=== PATIENT | male | born 1945 | race Caucasian/White ===

== ENCOUNTER 2017-09-27 11:12 | Inpatient (IN) | payer OTHER ==
[~2017-09-27] VITALS: Ht 167.6 cm; Wt 88.7 kg
[~2017-09-27 11:12] MED LIST: ACET-1138 PO; AMLO-114 PO; ASPEC81 PO; ATOR-24 PO; CLB200 PO; HYDR25TA4 PO; LISI-725 PO; OXYSR10 PO; PRLSR20 PO; RXC5 PO
[2017-09-27] MEDS ORDERED: SODIUM CHLORIDE 0.9% 1000ML 1,000 ML IV STA (11:37)
--- NOTE | 2017-09-27 12:08 | DIAGNOSTIC IMAGING REPORT ---
CHEST ONE VIEW PORTABLE HISTORY: 72 years-old Male EVALUATE ALTERED MENTAL STATUS/WEAKNESS acute altered mental status COMPARISON: None available TECHNIQUE: Portable AP view of the chest FINDINGS: Cardiac silhouette is mildly enlarged. Atherosclerosis of the aorta. Mild pulmonary vascular congestion without overt pulmonary edema. No pneumothorax or pleural effusion. There is mild right hemidiaphragmatic elevation. Ill-defined opacity is noted within the lateral right midlung within the region of the anterior right third rib. Bones of the chest appear grossly intact. IMPRESSION: 1. Cardiomegaly with mild pulmonary vascular congestion. 2. Subtle ill-defined opacity of the lateral right midlung may be secondary to composite density from overlapping ribs, however underlying airspace disease is also considered. The above report was generated using voice recognition software. It may contain grammatical, syntax or spelling errors. Electronically signed by: Gui Reyes M.D. 09/27/2017 12:07 PM Dictated Date/Time: 09/27/2017 12:05 PM
[2017-09-27 12:11] LABS: BASO % 0.4 %; BASO ABS # 0.04 K/uL (0-0.2); EOS % 2.4 %; EOS ABS # 0.25 K/uL (0-0.5); HEMATOCRIT 41.5 % (42-52); HEMOGLOBIN 14.5 g/dL (14.0-18.0); IG# 0.03 K/uL (0.00-0.02); LYMPH % 16.7 %; LYMPH ABS # 1.75 K/uL (1.2-3.4); MEAN CORPUSCULAR HEMOGLOBIN 32.5 pg (25-34); MEAN CORPUSCULAR HGB CONC 34.9 g/dl (32-36); MEAN PLATELET VOLUME 10.6 fL (7.4-10.4); MONO % 10.7 %; MONO ABS # 1.12 K/uL (0.11-0.59); NEUT % 69.5 %; NEUT ABS # 7.32 K/uL (1.4-6.5); PLATELET COUNT 187 K/uL (130-400); RED CELL DISTRIBUTION WIDTH CV 13.6 % (11.5-14.5); RED CELL DISTRIBUTION WIDTH SD 46.5 fL (36.4-46.3); WHITE BLOOD COUNT 10.51 K/uL (4.8-10.8)
[2017-09-27 12:21] LABS: INR 1.4 (0.9-1.1)
--- NOTE | 2017-09-27 12:35 | DIAGNOSTIC IMAGING REPORT ---
ABD/PELVIS NO IV OR ORAL CONT CLINICAL HISTORY: 72 years-old Male presenting with ABD PAIN, POSS ,MASS, NO CONTRAST, high calcium level, concern for mass. TECHNIQUE: Multidetector CT of the abdomen and pelvis was performed without the use of intravenous contrast. IV contrast: None. A dose lowering technique was used consistent with the principles of ALARA (as low as reasonably achievable). COMPARISON: None. CT DOSE (mGy.cm): The estimated cumulative dose is 979.90 mGycm. 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 Lung bases: Peripheral reticular opacities affecting both dependent and nondependent portions of the lung bases noted. Solid 6 mm nodule in the lingula (series 3 image 18). Solid 5 mm nodule in the right middle lobe (series 3 image 20) disease. Subtle bronchiectasis noted. Calcified granuloma in the right lower lobe. Multichamber enlargement of the heart. Coronary artery calcification. No pericardial or pleural effusion. Liver: Normal morphology. Multiple low-density lesions are ill-defined and noted throughout the right hepatic lobe. Biliary: Intrahepatic biliary ductal dilatation throughout the left hepatic lobe. Gallbladder contains gallstones. Pancreas: Normal noncontrast appearance. Spleen: Enlarged. Adrenal glands: Normal noncontrast appearance. Kidneys and ureters: Hypodensity at the upper pole the left kidney, indeterminate but likely cysts. Punctate nonobstructing calculus at the lower pole of the right kidney. No hydronephrosis. Normal ureters. Bladder: Under distended though likely circumferentially thick-walled. Pelvic organs: Prostate enlargement likely secondary to benign prostatic hyperplasia. Bowel: Limited diverticulosis in the descending and proximal sigmoid colon. Few diverticula noted at the hepatic flexure. The appendix is normal. No bowel obstruction. Peritoneal cavity: Trace free fluid in the pelvis. Lymph nodes: Multiple prominent paraesophageal lymph nodes. Pathologically enlarged lymph nodes in the celiac axis, portacaval, and jacklyn hepatis regions. The largest node measures 15 mm in the short axis (series 3 image 134). Vasculature: Atherosclerosis of the normal caliber abdominal aorta. Abdominal wall: Normal. Musculoskeletal: Degenerative changes of the spine. IMPRESSION: 1. Intrahepatic biliary ductal dilatation limited to the left hepatic lobe raises concern for an obstructing mass at the level of the left aspect of the liver hilum. Given the presence of multiple suspicious lesions throughout the right hepatic lobe, which are concerning for metastases, the primary differential consideration is cholangiocarcinoma with hepatic spread. Differential considerations include an extrahepatic primary with diffuse liver metastases and secondary obstruction of the left hepatic ducts due to metastatic lesions. However, no extrahepatic malignancy is evident on this noncontrast CT. Ultrasound of the liver is recommended for potential fine-needle biopsy for tissue sampling. 2. Upper abdominal lymphadenopathy. 3. Extensive reticular opacities at the lung bases with subtle bronchiectasis could suggest underlying fibrotic lung disease such as nonspecific interstitial pneumonitis, chronic aspiration, or smoking related lung injury. The report will be called/faxed according to standard departmental protocol. Electronically signed by: Kieran Buenrostro M.D. 09/27/2017 12:34 PM Dictated Date/Time: 09/27/2017 12:21 PM
[2017-09-27 12:38] LABS: ALBUMIN 2.9 gm/dl (3.4-5.0); ALT/SGPT 49 U/L (12-78); AST/SGOT 74 U/L (15-37); BLOOD UREA NITROGEN 19 mg/dl (7-18); CARBON DIOXIDE 28 mmol/L (21-32); CREATININE 1.59 mg/dl (0.60-1.40); GLUCOSE 90 mg/dl (70-99); POTASSIUM 3.6 mmol/L (3.5-5.1); SODIUM 136 mmol/L (136-145)
[2017-09-27 12:45] LABS: ALKALINE PHOSPHATASE 241 U/L (45-117); TOTAL PROTEIN 8.1 gm/dl (6.4-8.2)
[2017-09-27] MEDS ORDERED: CHOL1000 PO (13:29)
[2017-09-27] MEDS ORDERED: AMLO-114 PO (13:29)
[2017-09-27] MEDS ORDERED: MILK1CAP9 PO (13:29)
[2017-09-27] MEDS ORDERED: OMEG10007 PO (13:29)
[2017-09-27] MEDS ORDERED: PRLSR20 PO (13:29)
[2017-09-27] MEDS ORDERED: CYAN10005 PO (13:29)
[2017-09-27] MEDS ORDERED: MULT-506 PO (13:29)
[2017-09-27] MEDS ORDERED: ASCO100061 PO (13:29)
[2017-09-27] MEDS ORDERED: POLYETHYLENE (MIRALAX) 17 GM PACK PO PRN (13:45)
--- NOTE | 2017-09-27 13:54 | History and Physical ---
History & Physical Date & Time of Service: Sep 27, 2017 at 13:54 Chief Complaint: Weak,Not Appetite,Abnormal Blood Results Primary Care Physician: Nain Hoff D.OLawrence History of Present Illness Source: patient, clinic records, hospital records This is a 72yo M with a PMH of HTN, HLD who presents with generalized malaise and unintentional weight loss x 2 months. Patient reports that he has been "feeling poorly" since the beginning of July, with initial reports of low grade fever and intermittent abdominal pain thought to be due to hiatal hernia. Then started to experience increased fatigue, decreased appetite, increased urination and constipation. Endorses a 20 pound weight loss over the past few months. Was in [place] over the winter and went to an urgent care for evaluation of these symptoms and it was thought that symptoms were a side effect of crestor, which he was instructed to discontinue. Followed up with PCP at [facility] earlier this week, where he had lab work performed that revealed hypercalcemia of 15. Was told to go to ED for further evaluation. Currently endorses fatigue, decreased appetite and back pain (chronic). Denies fever, chills, confusion, lightheadedness, headache, visual changes, CP, SOB, nausea, vomiting or LE swelling. 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/15, Status: Resolved Family History Unknown family history Social History Smoking Status: Former Smoker Alcohol Use: occasionally Marital Status: Housing status: lives with significant other Occupational Status: retired Allergies Coded Allergies: Fish (Unverified Allergy, Unknown, SCALLOPS-G I UPSET, 09/27/17) NO KNOWN DRUG ALLERGIES (Unverified Allergy, Unknown, NONE, 09/27/17) Uncoded Allergies: HAZELNUTS (Allergy, Unknown, red, puffy eyes, 10/15/15) Home Medications Scheduled Amlodipine (Norvasc), 10 MG PO DAILY Ascorbic Acid (Vitamin C), 1 TAB PO DAILY Cholecalciferol (Vitamin D3), 3 TAB PO DAILY Cyanocobalamin (Vitamin B-12), 1,000 MCG PO DAILY Fish Oil (Gaffney-3), 1 CAP PO DAILY Milk Thistle (Silybum Marianum (Milk Thistle), 1 CAP PO DAILY Multivitamin (Multivitamin), 1 TAB PO DAILY Triamcinolone Acet (Aristocort 0.1%), 1 APPLN TOP DAILY Scheduled PRN Omeprazole (Prilosec), 20 MG PO DAILY PRN for Dyspepsia Review of Systems Constitutional: + weight loss, + fatigue, No fever, No chills, No sweats, No weakness Eyes: No worsening of vision, No eye pain ENT: No hearing loss, No nasal symptoms, No sore throat Respiratory: No cough, No sputum, No wheezing, No shortness of breath, No dyspnea on exertion, No dyspnea at rest Cardiovascular: No chest pain, No orthopnea, No PND, No edema Abdomen: + constipation, No pain, No nausea, No vomiting, No diarrhea Musculoskeletal: + joint pain, + muscle pain Genitourinary - Male: No hematuria, No dysuria, No urinary urgency Neurologic: No memory loss, No paralysis, No weakness, No numbness/tingling Endocrine: + fatigue, + excessive urination, No excessive thirst Integumentary: No rash, No itch, No new/changing skin lesions Physical Exam Vital Signs Date Time Temp Pulse Resp B/P (MAP) Pulse Ox O2 Delivery O2 Flow Rate FiO2 09/27/17 11:32 63 09/27/17 11:17 36.4 54 18 122/75 95 Room Air General Appearance: WD/WN, no apparent distress Head: normocephalic, atraumatic Eyes: normal inspection, PERRL, sclerae normal ENT: normal ENT inspection, hearing grossly normal, pharynx normal Neck: supple, thyroid normal, no JVD, trachea midline Respiratory/Chest: chest non-tender, lungs clear, normal breath sounds, no respiratory distress, + crackles (faint bibasilar crackles ) Cardiovascular: regular rate, rhythm, no murmur, normal peripheral pulses Abdomen/GI: normal bowel sounds, non tender, soft, + hepatomegaly Back: normal inspection, no muscle spasm Extremities/Musculoskelatal: normal inspection, no calf tenderness, no pedal edema Neurologic/Psych: no motor/sensory deficits, alert, normal mood/affect, oriented x 3 Skin: normal color, warm/dry, no rash Diagnostics Laboratory Results Results Past 24 Hours Test 09/27/17 11:51 09/27/17 12:50 Range/Units White Blood Count 10.51 4.8-10.8 K/uL Red Blood Count 4.46 4.7-6.1 M/uL Hemoglobin 14.5 14.0-18.0 g/dL Hematocrit 41.5 42-52 % Mean Corpuscular Volume 93.0 80-100 fL Mean Corpuscular Hemoglobin 32.5 25-34 pg Mean Corpuscular Hemoglobin Concent 34.9 32-36 g/dl Platelet Count 187 130-400 K/uL Mean Platelet Volume 10.6 7.4-10.4 fL Neutrophils (%) (Auto) 69.5 % Lymphocytes (%) (Auto) 16.7 % Monocytes (%) (Auto) 10.7 % Eosinophils (%) (Auto) 2.4 % Basophils (%) (Auto) 0.4 % Neutrophils # (Auto) 7.32 1.4-6.5 K/uL Lymphocytes # (Auto) 1.75 1.2-3.4 K/uL Monocytes # (Auto) 1.12 0.11-0.59 K/uL Eosinophils # (Auto) 0.25 0-0.5 K/uL Basophils # (Auto) 0.04 0-0.2 K/uL RDW Standard Deviation 46.5 36.4-46.3 fL RDW Coefficient of Variation 13.6 11.5-14.5 % Immature Granulocyte % (Auto) 0.3 % Immature Granulocyte # (Auto) 0.03 0.00-0.02 K/uL Prothrombin Time 14.1 9.0-12.0 SECONDS Prothromb Time International Ratio 1.4 0.9-1.1 Activated Partial Thromboplast Time 28.0 21.0-31.0 SECONDS Partial Thromboplastin Ratio 1.1 Sodium Level 136 136-145 mmol/L Potassium Level 3.6 3.5-5.1 mmol/L Chloride Level 101 98-107 mmol/L Carbon Dioxide Level 28 21-32 mmol/L Anion Gap 7.0 3-11 mmol/L Blood Urea Nitrogen 19 7-18 mg/dl Creatinine 1.59 0.60-1.40 mg/dl Est Creatinine Clear Calc Drug Dose 43.4 ml/min Estimated GFR () 49.5 Estimated GFR (Non- 42.7 BUN/Creatinine Ratio 11.9 10-20 Random Glucose 90 70-99 mg/dl Calcium Level 15.0 8.5-10.1 mg/dl Magnesium Level 1.7 1.8-2.4 mg/dl Total Bilirubin 1.2 0.2-1 mg/dl Aspartate Amino Transf (AST/SGOT) 74 15-37 U/L Alanine Aminotransferase (ALT/SGPT) 49 12-78 U/L Alkaline Phosphatase 241 45-117 U/L Total Creatine Kinase 114 39-308 U/L Troponin I < 0.015 0-0.045 ng/ml Total Protein 8.1 6.4-8.2 gm/dl Albumin 2.9 3.4-5.0 gm/dl Globulin 5.2 2.5-4.0 gm/dl Albumin/Globulin Ratio 0.6 0.9-2 Thyroid Stimulating Hormone (TSH) 3.310 0.300-4.500 uIu/ml Free Thyroxine 1.20 0.80-1.60 ng/dl Urine Color DK YELLOW Urine Appearance CLEAR CLEAR Urine pH 5.5 4.5-7.5 Urine Specific Alkol 1.013 1.000-1.030 Urine Protein NEG NEG Urine Glucose (UA) NEG NEG Urine Ketones NEG NEG Urine Occult Blood NEG NEG Urine Nitrite NEG NEG Urine Bilirubin NEG NEG Urine Urobilinogen NEG NEG Urine Leukocyte Esterase TRACE NEG Urine WBC (Auto) 5-10 0-5 /hpf Urine RBC (Auto) 5-10 0-4 /hpf Urine Hyaline Casts (Auto) 5-10 0-5 /lpf Urine Epithelial Cells (Auto) >30 0-5 /lpf Urine Bacteria (Auto) NEG NEG Diagnostic Radiology CXR: IMPRESSION: 1. Cardiomegaly with mild pulmonary vascular congestion. 2. Subtle ill-defined opacity of the lateral right midlung may be secondary to composite density from overlapping ribs, however underlying airspace disease is also considered. Abd/pelvis CT: IMPRESSION: 1. Intrahepatic biliary ductal dilatation limited to the left hepatic lobe raises concern for an obstructing mass at the level of the left aspect of the liver hilum. Given the presence of multiple suspicious lesions throughout the right hepatic lobe, which are concerning for metastases, the primary differential consideration is cholangiocarcinoma with hepatic spread. Differential considerations include an extrahepatic primary with diffuse liver metastases and secondary obstruction of the left hepatic ducts due to metastatic lesions. However, no extrahepatic malignancy is evident on this noncontrast CT. Ultrasound of the liver is recommended for potential fine-needle biopsy for tissue sampling. 2. Upper abdominal lymphadenopathy. 3. Extensive reticular opacities at the lung bases with subtle bronchiectasis could suggest underlying fibrotic lung disease such as nonspecific interstitial pneumonitis, chronic aspiration, or smoking related lung injury. EKG Atrial flutter Voltage criteria for left ventricular hypertrophy Impression Assessment and Plan This is a 72yo M with a PMH of HTN, HLD who presents with generalized malaise and unintentional weight loss x 2 months found to be hypercalcemic at 15 with liver abnormalities on abd/pelvis CT concerning for malignancy. Hypercalcemia: -Calcium of 15 -Aggressive IVF resuscitation -Concern for malignancy of liver, cholangiocarcinoma with hepatic spread -Heme onc consulted -Concern for mets to bone due to calcium of 15 -Recommended bone scan -AFP, CEA, Ca 19-9 Intrahepatic ductal dilatation, liver lesions -Abd pelvis CT with intrahepatic ductal dilatation, raises concern for an obstructing mass at the level of the left aspect of the liver hilum. Given the presence of multiple suspicious lesions throughout the right hepatic lobe, which are concerning for metastases, the primary differential consideration is cholangiocarcinoma with hepatic spread. -Ultrasound of the liver is recommended for potential fine-needle biopsy for tissue sampling -Abnormal liver lab work: Alk phos 241, AST of 74, T bili of 1.2 -GI consulted -Will evaluate for EUS HTN: -Recently discontinued lisinopril, hctz due to hypotension -Normotensive -Cont amlodipine Reticular opacities of lung bases: -On CXR -May suggest subtle bronchiectasis vs underlying fibrotic lung disease such as nonspecific interstitial pneumonitis, chronic aspiration, or smoking related lung injury -Remote h/o smoking -No SOB, adequate O2 saturation on room air DVT Ppx: SCDs for now. SQ heparin after EUS is obtained by GI Code status: FULL PCP: Jayden Hoff Dispo: Admitted to telemetry. Plan to return home once medically stable. Patient seen in collaboration with Dr. oHrn. Please see addendum. Resuscitation Status FULL VTE Prophylaxis Will order VTE Prophylaxis: Yes (SCDs for now, SQ heparin to be ordered after procedure ) Note ATTENDING ADDENDUM Record reviewed. Patient interviewed and examined. Care coordinated with Marylou Escalante PA-C. Please refer to her documentation for patient's history. Briefly, 72-year-old male with recent onset of anorexia, weight loss, fatigue. Seen in clinic and found to have serum calcium of 15. Refer to ED for further evaluation and management. EXAM: General- no acute distress ENT-anicteric Lungs- clear to auscultation; no respiratory distress Cardiovascular- RRR; I/ systolic murmur at base; no gallop; no JVD; no pretibial edema Abdomen- + bowel sounds, soft, nontender; no palpable masses or hepatosplenomegaly Extremities- no cyanosis; no calf tenderness Neuro- alert, oriented Skin- warm & dry DATA: INR 1.4. Total bilirubin 1.2, AST 74, ALT 49, alkaline phosphatase 241. Other lab studies as noted. Chest x-ray demonstrated cardiomegaly, mild pulmonary vascular congestion, ill- defined opacity right lateral midlung possibly secondary to overlapping ribs. CT of abdomen and pelvis demonstrated multiple hepatic lesions in the right lobe , intrahepatic biliary ductal dilatation of the left lobe raising concern for an obstructing mass. Cholangiocarcinoma with liver metastases considered in the radiographic differential diagnosis. Upper abdominal lymphadenopathy was noted. Bibasilar pulmonary reticular opacities with subtle bronchiectasis suggested. EKG performed at 1146 demonstrated a regular rhythm at 60/minute. Underlying rhythm interpreted as atrial flutter, but may have sinus rhythm with some baseline artifact. ASSESSMENT AND PLAN: Hypercalcemia with radiographic findings as noted above worrisome for malignancy , possibly cholangiocarcinoma with hepatic metastases. Findings and differential diagnosis discussed with patient and his . Initial management for hypercalcemia with intravenous fluids; may need other treatment such as bisphosphonates. Will need further evaluation of hepatic lesions. Consult Gastroenterology and Hematology/Oncology. EKG interpreted as atrial flutter with controlled rate. May have sinus rhythm with some baseline artifact. Monitor on telemetry. Check repeat 12-lead EKG in the morning. Review with Cardiology. Initial DVT prophylaxis with SCDs, anticipating invasive diagnostic procedures. Transition to prophylactic anticoagulants once invasive procedures are completed. Please refer to CHANI Escalante's documentation for discussion of other issues. Quintin Horn MD .
[2017-09-27] MEDS ORDERED: ASCO100T4 PO (14:08)
[2017-09-27] MEDS ORDERED: TRMCR130WC TOP (14:08)
[2017-09-27 14:30] VITALS: O2SAT 93; BMI 31.0
[2017-09-27] MEDS ORDERED: SODIUM CHLORIDE 0.9% 1000ML 1,000 ML IV SCH (16:00)
--- NOTE | 2017-09-27 17:16 | EMERGENCY ROOM VISIT NOTE ---
History Report prepared by Kristel: Augie Whitfield Under the Supervision of: Dr. Jose De Jesus Julio M.D. First contact with patient: 11:31 Chief Complaint: ABNORMAL LABS Stated Complaint: WEAK,NOT APPETITE,ABNORMAL BLOOD RESULTS History of Present Illness The patient is a 72 year old male who presents to the Emergency Room with complaints of constant hypercalcemia. He was seen at his primary care office yesterday, and had blood work drawn. He was called today with his results and was told he had a calcium of 15. The patient states that he has felt "poorly" for the past two months. He reports an approximately 20 pound weight loss in this time. He also complains of constipation, cough, increased urinary frequency , and fatigue. He denies diarrhea, abdominal pain, back pain, LOC, abdominal bloating, or headache. The patient states that he had fevers initially about two months ago, but not recently. He feels that he may be dehydrated. Source of History: patient Onset: Yesterday Position: other (global) Symptom Intensity: Calcium of 15 Quality: other (hypercalcemia) Timing: constant Associated Symptoms: + fevers (two months ago), + cough, + urinary symptoms (increased frequency), + fatigue, No LOC, No headache, No abdominal pain, No back pain, No diarrhea Note: The patient denies abdominal bloating. He also complains of constipation. Review of Systems See HPI for pertinent positives & negatives. A total of 10 systems reviewed and were otherwise negative. Past Medical & Surgical Medical Problems: (1) Arthritis of right knee (2) Bronchitis (3) Hiatal hernia (4) HLD (hyperlipidemia) (5) HTN (hypertension) (6) Spindle cell carcinoma Family History No pertinent family history stated. Social History Smoking Status: Former Smoker Marital Status: Current/Historical Medications Scheduled Amlodipine (Norvasc), 10 MG PO DAILY Ascorbic Acid (Vitamin C), 1 TAB PO DAILY Cholecalciferol (Vitamin D3), 3 TAB PO DAILY Cyanocobalamin (Vitamin B-12), 1,000 MCG PO DAILY Fish Oil ([place]-3), 1 CAP PO DAILY Milk Thistle (Silybum [place] (Milk Thistle), 1 CAP PO DAILY Multivitamin (Multivitamin), 1 TAB PO DAILY Triamcinolone Acet (Aristocort 0.1%), 1 APPLN TOP DAILY Scheduled PRN Omeprazole (Prilosec), 20 MG PO DAILY PRN for Dyspepsia Allergies Coded Allergies: Fish (Unverified Allergy, Unknown, SCALLOPS-G I UPSET, 09/27/17) NO KNOWN DRUG ALLERGIES (Unverified Allergy, Unknown, NONE, 09/27/17) Uncoded Allergies: HAZELNUTS (Allergy, Unknown, red, puffy eyes, 10/15/15) Physical Exam Vital Signs Date Time Temp Pulse Resp B/P (MAP) Pulse Ox O2 Delivery O2 Flow Rate FiO2 09/27/17 11:32 63 09/27/17 11:17 36.4 54 18 122/75 95 Room Air Physical Exam GENERAL: Patient is in no acute distress. HEENT: No acute trauma, normocephalic atraumatic, mucous membranes dry, no nasal congestion, no scleral icterus. NECK: No stridor, no adenopathy, no meningismus, trachea is midline. LUNGS: Clear to auscultation bilaterally, no wheeze, no rhonchi, breath sounds equal. HEART: Without murmurs gallops or rubs, regular rate and rhythm. ABDOMEN: Soft, nontender, bowel sounds positive, no hernias, no peritonitis. EXTREMITIES: No cyanosis or edema, full range of motion of all the joints without pain or difficulty, no signs for acute trauma. NEUROLOGIC: Oriented x 3, no acute motor or sensory deficits, no focal weakness. SKIN: No rash, no jaundice, no diaphoresis. Medical Decision & Procedures ER Provider Diagnostic Interpretation: Radiology results as stated below per my review and radiologist interpretation: CHEST ONE VIEW PORTABLE FINDINGS: Cardiac silhouette is mildly enlarged. Atherosclerosis of the aorta. Mild pulmonary vascular congestion without overt pulmonary edema. No pneumothorax or pleural effusion. There is mild right hemidiaphragmatic elevation. Ill-defined opacity is noted within the lateral right midlung within the region of the anterior right third rib. Bones of the chest appear grossly intact. IMPRESSION: 1. Cardiomegaly with mild pulmonary vascular congestion. 2. Subtle ill-defined opacity of the lateral right midlung may be secondary to composite density from overlapping ribs, however underlying airspace disease is also considered. The above report was generated using voice recognition software. It may contain grammatical, syntax or spelling errors. Electronically signed by: Gui Reyes M.D. 09/27/2017 12:07 PM ABD/PELVIS NO IV OR ORAL CONT FINDINGS: Automation Tender topogram: Unremarkable. Lung bases: Peripheral reticular opacities affecting both dependent and nondependent portions of the lung bases noted. Solid 6 mm nodule in the lingula (series 3 image 18). Solid 5 mm nodule in the right middle lobe (series 3 image 20) disease. Subtle bronchiectasis noted. Calcified granuloma in the right lower lobe. Multichamber enlargement of the heart. Coronary artery calcification. No pericardial or pleural effusion. Liver: Normal morphology. Multiple low-density lesions are ill-defined and noted throughout the right hepatic lobe. Biliary: Intrahepatic biliary ductal dilatation throughout the left hepatic lobe. Gallbladder contains gallstones. Pancreas: Normal noncontrast appearance. Spleen: Enlarged. Adrenal glands: Normal noncontrast appearance. Kidneys and ureters: Hypodensity at the upper pole the left kidney, indeterminate but likely cysts. Punctate nonobstructing calculus at the lower pole of the right kidney. No hydronephrosis. Normal ureters. Bladder: Under distended though likely circumferentially thick-walled. Pelvic organs: Prostate enlargement likely secondary to benign prostatic hyperplasia. Bowel: Limited diverticulosis in the descending and proximal sigmoid colon. Few diverticula noted at the hepatic flexure. The appendix is normal. No bowel obstruction. Peritoneal cavity: Trace free fluid in the pelvis. Lymph nodes: Multiple prominent paraesophageal lymph nodes. Pathologically enlarged lymph nodes in the celiac axis, portacaval, and jacklyn hepatis regions. The largest node measures 15 mm in the short axis (series 3 image 134). Vasculature: Atherosclerosis of the normal caliber abdominal aorta. Abdominal wall: Normal. Musculoskeletal: Degenerative changes of the spine. IMPRESSION: 1. Intrahepatic biliary ductal dilatation limited to the left hepatic lobe raises concern for an obstructing mass at the level of the left aspect of the liver hilum. Given the presence of multiple suspicious lesions throughout the right hepatic lobe, which are concerning for metastases, the primary differential consideration is cholangiocarcinoma with hepatic spread. Differential considerations include an extrahepatic primary with diffuse liver metastases and secondary obstruction of the left hepatic ducts due to metastatic lesions. However, no extrahepatic malignancy is evident on this noncontrast CT. Ultrasound of the liver is recommended for potential fine-needle biopsy for tissue sampling. 2. Upper abdominal lymphadenopathy. 3. Extensive reticular opacities at the lung bases with subtle bronchiectasis could suggest underlying fibrotic lung disease such as nonspecific interstitial pneumonitis, chronic aspiration, or smoking related lung injury. The report will be called/faxed according to standard departmental protocol. Electronically signed by: Kieran Buenrostro M.D. 09/27/2017 12:34 PM Laboratory Results 09/27/17 11:51 Red Blood Count 4.46, Mean Corpuscular Volume 93.0, Mean Corpuscular Hemoglobin 32.5, Mean Corpuscular Hemoglobin Concent 34.9, Mean Platelet Volume 10.6, Neutrophils (%) (Auto) 69.5, Lymphocytes (%) (Auto) 16.7, Monocytes (%) (Auto) 10.7, Eosinophils (%) (Auto) 2.4, Basophils (%) (Auto) 0.4, Neutrophils # (Auto ) 7.32, Lymphocytes # (Auto) 1.75, Monocytes # (Auto) 1.12, Eosinophils # (Auto ) 0.25, Basophils # (Auto) 0.04 09/27/17 11:51 Test 09/27/17 11:51 09/27/17 12:50 White Blood Count 10.51 K/uL (4.8-10.8) Red Blood Count 4.46 M/uL (4.7-6.1) Hemoglobin 14.5 g/dL (14.0-18.0) Hematocrit 41.5 % (42-52) Mean Corpuscular Volume 93.0 fL (80-100) Mean Corpuscular Hemoglobin 32.5 pg (25-34) Mean Corpuscular Hemoglobin Concent 34.9 g/dl (32-36) Platelet Count 187 K/uL (130-400) Mean Platelet Volume 10.6 fL (7.4-10.4) Neutrophils (%) (Auto) 69.5 % Lymphocytes (%) (Auto) 16.7 % Monocytes (%) (Auto) 10.7 % Eosinophils (%) (Auto) 2.4 % Basophils (%) (Auto) 0.4 % Neutrophils # (Auto) 7.32 K/uL (1.4-6.5) Lymphocytes # (Auto) 1.75 K/uL (1.2-3.4) Monocytes # (Auto) 1.12 K/uL (0.11-0.59) Eosinophils # (Auto) 0.25 K/uL (0-0.5) Basophils # (Auto) 0.04 K/uL (0-0.2) RDW Standard Deviation 46.5 fL (36.4-46.3) RDW Coefficient of Variation 13.6 % (11.5-14.5) Immature Granulocyte % (Auto) 0.3 % Immature Granulocyte # (Auto) 0.03 K/uL (0.00-0.02) Prothrombin Time 14.1 SECONDS (9.0-12.0) Prothromb Time International Ratio 1.4 (0.9-1.1) Activated Partial Thromboplast Time 28.0 SECONDS (21.0-31.0) Partial Thromboplastin Ratio 1.1 Anion Gap 7.0 mmol/L (3-11) Est Creatinine Clear Calc Drug Dose 43.4 ml/min Estimated GFR () 49.5 Estimated GFR (Non- 42.7 BUN/Creatinine Ratio 11.9 (10-20) Calcium Level 15.0 mg/dl (8.5-10.1) Magnesium Level 1.7 mg/dl (1.8-2.4) Total Bilirubin 1.2 mg/dl (0.2-1) Aspartate Amino Transf (AST/SGOT) 74 U/L (15-37) Alanine Aminotransferase (ALT/SGPT) 49 U/L (12-78) Alkaline Phosphatase 241 U/L (45-117) Total Creatine Kinase 114 U/L (39-308) Troponin I < 0.015 ng/ml (0-0.045) Total Protein 8.1 gm/dl (6.4-8.2) Albumin 2.9 gm/dl (3.4-5.0) Globulin 5.2 gm/dl (2.5-4.0) Albumin/Globulin Ratio 0.6 (0.9-2) Carcinoembryonic Antigen 3.5 ng/ml (0-2.5) Thyroid Stimulating Hormone (TSH) 3.310 uIu/ml (0.300-4.500) Free Thyroxine 1.20 ng/dl (0.80-1.60) Urine Color DK YELLOW Urine Appearance CLEAR (CLEAR) Urine pH 5.5 (4.5-7.5) Urine Specific [place] 1.013 (1.000-1.030) Urine Protein NEG (NEG) Urine Glucose (UA) NEG (NEG) Urine Ketones NEG (NEG) Urine Occult Blood NEG (NEG) Urine Nitrite NEG (NEG) Urine Bilirubin NEG (NEG) Urine Urobilinogen NEG (NEG) Urine Leukocyte Esterase TRACE (NEG) Urine WBC (Auto) 5-10 /hpf (0-5) Urine RBC (Auto) 5-10 /hpf (0-4) Urine Hyaline Casts (Auto) 5-10 /lpf (0-5) Urine Epithelial Cells (Auto) >30 /lpf (0-5) Urine Bacteria (Auto) NEG (NEG) Laboratory results reviewed by me. Medications Administered Medications (Trade) Dose Ordered Sig/Van Route Start Time Stop Time Status Last Admin Dose Admin Sodium Chloride 1,000 ml @ 999 mls/hr Q1H1M STAT IV 09/27/17 11:37 09/27/17 12:37 DC 09/27/17 12:01 999 MLS/HR ECG Per My Interpretation Indication: other (fatigue) Rate (beats per minute): 58 Rhythm: sinus bradycardia Findings: no ectopy, other (LVH. No ST elevation. ) ED Course 1133: The patient was evaluated in room C4. A complete history and physical exam was performed. 1137: Ordered Sodium Chloride 1000 ml @ 999 mls/hr IV. 1250: Upon reexamination the patient is resting comfortably. I discussed results and treatment plan with the patient. He verbalizes agreement and understanding. I spoke with Marylou Escalante PA-C of the [facility]. We discussed the patient's results and findings. The patient will be evaluated by [facility] for further management. Medical Decision The patient is a 72 year old male who presents to the ED with complaints of hypercalcemia. Differential diagnoses considered include electrolyte imbalance , dehydration, anemia, malignancy, thyroid/parathyroid abnormality, UTI, bowel obstruction, and dysrhythmia. There is no leukocytosis or concerning anemia. Renal panel testing shows some mild renal insufficiency/dehydration. Calcium was elevated at 15. There were some liver enzyme elevations concerning for hepatitis. No pancreatitis. INR slightly high at 1.4. Chest film does not show pneumonia, free air or mass. EKG shows a sinus rhythm, no acute ischemia. Cardiac enzyme testing times one is not consistent with acute cardiac injury. Abdominal and pelvis CT shows a potential liver mass with biliary obstruction. The patient presents with abnormal laboratory values as an outpatient. He is hypercalcemic. He did receive IV saline. He has findings of potential malignancy with involvement of the biliary tree. A hospital stay is required for further workup. I did discuss the findings with the patient, the on-call hospitalist was consulted. Case management has been involved. Medication Reconcilliation Current Medication List: was personally reviewed by me Blood Pressure Screening Patient's blood pressure: Normal blood pressure Blood pressure disposition: Did not require urgent referral Consults Time Called: 1248 Consulting Physician: Marylou Duenas Hospitalist Returned Call: [phone] Discussed the patient's case. The patient will be evaluated for further management. Impression Primary Impression: Hypercalcemia Additional Impressions: Liver mass Dilated bile duct Scribe Attestation The scribe's documentation has been prepared under my direction and personally reviewed by me in its entirety. I confirm that the note above accurately reflects all work, treatment, procedures, and medical decision making performed by me. Departure Information Dispostion Being Evaluated By Hospitalist Referrals Nain Hoff DLawrenceO. (PCP) Patient Instructions My [facility] Problem Qualifiers
--- NOTE | 2017-09-27 18:55 | Medical Consult ---
Consultation Date of Consultation: Sep 27, 2017. Attending Physician: Kaiden Moreau MD History of Present Illness Hematology/Oncology consult: Evaluation management of hypercalcemia, suspected cancer involving the liver. Date of consultation: 09/27/2017 HPI: 72-year-old the male, who complained of generalized weakness, unintentional weight loss of about 20 lb over the last 2 to 3 months, often on mid-to lower back pain for the last few months, he does complain of intermittent the upper abdominal discomfort also for the last few months but poor appetite, poor oral intake, increased frequency of urination present. No hematuria, no bleeding from any sites, no blood in the stool. No fever. He was seen by his primary-care provider yesterday in the clinic for the nonspecific symptoms, blood workup done as an outpatient showed significant hypercalcemia with a calcium level of 15, he was advised to go [facility] for inpatient management. I saw him at bedside, his and son was also bedside, some intermittent confusion status noted, no focal neurological weakness, no new cardiac or pulmonary symptom other than some tiredness, discontinue smoking habit somewhere in 1983. REVIEW OF SYSTEMS: GENERAL: Weight loss present, feeling weak and tired, no fever, sweats or chills. SKIN: No skin rash, no bruising. HEAD: No new headache, his blood pressure has remained in the lower side about 1 week back, feeling somewhat dizzy. EYES: No recent change in the vision, no diplopia, EARS: No earache no tinnitus, NOSE: No epistaxis, No nasal discharge or stuffiness, MOUTH: No sores, no dysphagia, no hoarseness of voice, NECK: No lumps, No swelling in thyroid area. No stiffness. PULMONARY: No cough, No shortness of breath at rest, no hemoptysis, no chest pain, No wheezing. CARDIOVASCULAR: No anginal chest pain, no PND, no orthopnea. No palpitation, no leg edema. No syncope. GASTROINTESTINAL: Upper abdominal pain intermittently present, no nausea or vomiting. No diarrhea, No constipation. No blood in stool or black tarry stools. Sub slight distention in the right upper abdominal noted. UROLOGIC: Increase frequent urination present, no hematuria MUSCULOSKELETAL: No joint pain, No joint swelling, no muscle weakness. Back pain chronic present got worse in the last few months. HEMATOLOGIC: No anemia, no bleeding disorder, No bruising. NEUROLOGIC: No seizures, no focal weakness, no speech difficulty, No memory disturbances. No tingling or numbness of the extremities. PSYCHIATRIC: No depression. No anxiety. No psychosis. SLEEP: No sleep disorder. Past medical and surgical history: -hyperlipidemia, hypertension. Social history: Discontinue smoking habit man years back, drinks alcohol socially. Family history: Not significant Medications: -taking oral Vitamin B12 replacement therapy on a regular basis -he was taking vitamin-D 3000 units once a day -other medications at home--> hydrochlorothiazide, omeprazole, Crestor Allergies: polon, bee On exam: - Alert and oriented x3, well built man, not in any distress. - HEENT: no icterus, no pallor, Throat: Normal. - Neck: No palpable cervical lymphadenopathy. - Chest: clear to auscultation. - Abdomen: soft, nontender, no hepatomegaly, no splenomegaly. - No focal neuro deficit. - Extremities: no finger clubbing, no leg edema. Lab: Left done at [facility]: - AST and ALT has remained between 50-100 since 2013. -calcium level--> 9.7, AST 66, ALT 52, alkaline phosphatase 206, Total bilirubin : 0.9, BUN/Creat: 10/0.8 (06/08/2017) Blood workup done on 09/26/2017 at [facility]: -BUN/Creat: 18/1.5, calcium 15, albumin 3.5 -AST 81, ALT 45, alkaline phosphatase 241, Total bilirubin: 1.2 Blood workup done during this hospitalization: 09/27/2017: -WBC 87798, H&H of 14.5/41.5, Platelet count of 187,000 -BUN/Creat: 19/1.5, calcium 15.0 -magnesium 1.7, Total bilirubin: 1.2, AST 74, ALT 49, alkaline phosphatase 241 , total protein 8.1, albumin 2.9, globulin 5.2. -CEA level--> 3.5 -AFP and CA 19-9 level--> pending. Imaging: -CT scan of the abdomen and pelvis done on 09/27/2017--> intrahepatic biliary ductal dilatation limited to the left lobe of the liver concerning some of treating mass at the left aspect of the liver hilum. Multiple liver lesions throughout the right lobe of the liver. Upper abdominal lymphadenopathy involving the celiac axis, jacklyn hepatis, portacaval region. The largest lymph node measuring 1.5 cm. No other intra-abdominal masses identified. No suspicious bony lesions noted. Chest x-ray done on 09/27/2017--> cardiomegaly with the mild pulmonary vascular congestion. Subtle ill-defined opacity in the lateral right mid-lung. ASSESSMENT AND PLAN: 72-year-old the male, who is admitted at [facility] for new onset of hypercalcemia, he had a normal calcium level few months back, also has abnormal liver function test, elevated alkaline phosphatase, chronic back pain, multiple liver lesions noted in the CT scan of the abdomen, upper abdominal lymphadenopathy involving the jacklyn hepatis and celiac axis region noted, history of smoking in the past present, has slightly abnormal kidney function with serum creatinine around 1.5 mg/dL, presently he is receiving IV hydration. I spoke with the patient as well as his family members at bedside regarding the diagnostic workup done so far, suspecting cancer diagnosis in his case, will need additional workup. Will get bone scan for further evaluation. Also would like to get ultrasound of the liver and then consider for ultrasound- guided liver biopsy if it is possible. Will get CT scan of the chest without intravenous contrast. I would like to give Zometa 4 mg x1 dose (ordered) Will continue IV hydration. Will follow up. Thanks for the consultation. Dr. Rodrigo Friend Hem/Onc (This note was completed using the dictation program Fluency Direct. As such, there may be misspellings, word substitutions, or other variations that should not change the essence of the clinical content of this encounter note. If there is need for further clarification, please direct questions to the provider listed above.) Past Medical/Surgical History Medical Problems: (1) Dilated bile duct Status: Acute (2) Hypercalcemia Status: Acute (3) Liver mass Status: Acute Social History Smoking Status: Former Smoker Alcohol Use: occasionally Marital Status: Occupation Status: retired Allergies Coded Allergies: Fish (Unverified Allergy, Unknown, SCALLOPS-G I UPSET, 09/27/17) NO KNOWN DRUG ALLERGIES (Unverified Allergy, Unknown, NONE, 09/27/17) Uncoded Allergies: HAZELNUTS (Allergy, Unknown, red, puffy eyes, 10/15/15) Current Inpatient Medications Current Inpatient Medications Medications (Trade) Dose Ordered Sig/Van Route Start Time Stop Time Status Last Admin Dose Admin Ondansetron HCl (Zofran Inj) 4 mg Q6H PRN IV 09/27/17 13:45 10/27/17 13:44 Polyethylene (Miralax Powder Packet) 17 gm DAILY PRN PO 09/27/17 13:45 10/27/17 13:44 Sodium Chloride 1,000 ml @ 200 mls/hr Q5H IV 09/27/17 16:00 09/27/17 20:59 09/27/17 16:10 200 MLS/HR Amlodipine Besylate (Norvasc Tab) 10 mg DAILY PO 09/28/17 09:00 10/28/17 08:59 Physical Exam Date Time Temp Pulse Resp B/P (MAP) Pulse Ox O2 Delivery O2 Flow Rate FiO2 09/27/17 15:30 Room Air 09/27/17 14:59 58 16 143/72 93 09/27/17 14:30 93 Room Air 09/27/17 14:21 58 16 143/72 93 Room Air 09/27/17 11:32 63 09/27/17 11:17 36.4 54 18 122/75 95 Room Air Laboratory Results Last 24 Hours Test 09/27/17 11:51 09/27/17 12:50 White Blood Count 10.51 K/uL Red Blood Count 4.46 M/uL Hemoglobin 14.5 g/dL Hematocrit 41.5 % Mean Corpuscular Volume 93.0 fL Mean Corpuscular Hemoglobin 32.5 pg Mean Corpuscular Hemoglobin Concent 34.9 g/dl Platelet Count 187 K/uL Mean Platelet Volume 10.6 fL Neutrophils (%) (Auto) 69.5 % Lymphocytes (%) (Auto) 16.7 % Monocytes (%) (Auto) 10.7 % Eosinophils (%) (Auto) 2.4 % Basophils (%) (Auto) 0.4 % Neutrophils # (Auto) 7.32 K/uL Lymphocytes # (Auto) 1.75 K/uL Monocytes # (Auto) 1.12 K/uL Eosinophils # (Auto) 0.25 K/uL Basophils # (Auto) 0.04 K/uL RDW Standard Deviation 46.5 fL RDW Coefficient of Variation 13.6 % Immature Granulocyte % (Auto) 0.3 % Immature Granulocyte # (Auto) 0.03 K/uL Prothrombin Time 14.1 SECONDS Prothromb Time International Ratio 1.4 Activated Partial Thromboplast Time 28.0 SECONDS Partial Thromboplastin Ratio 1.1 Sodium Level 136 mmol/L Potassium Level 3.6 mmol/L Chloride Level 101 mmol/L Carbon Dioxide Level 28 mmol/L Anion Gap 7.0 mmol/L Blood Urea Nitrogen 19 mg/dl Creatinine 1.59 mg/dl Est Creatinine Clear Calc Drug Dose 43.4 ml/min Estimated GFR () 49.5 Estimated GFR (Non- 42.7 BUN/Creatinine Ratio 11.9 Random Glucose 90 mg/dl Calcium Level 15.0 mg/dl Magnesium Level 1.7 mg/dl Total Bilirubin 1.2 mg/dl Aspartate Amino Transf (AST/SGOT) 74 U/L Alanine Aminotransferase (ALT/SGPT) 49 U/L Alkaline Phosphatase 241 U/L Total Creatine Kinase 114 U/L Troponin I < 0.015 ng/ml Total Protein 8.1 gm/dl Albumin 2.9 gm/dl Globulin 5.2 gm/dl Albumin/Globulin Ratio 0.6 Carcinoembryonic Antigen 3.5 ng/ml Thyroid Stimulating Hormone (TSH) 3.310 uIu/ml Free Thyroxine 1.20 ng/dl Urine Color DK YELLOW Urine Appearance CLEAR Urine pH 5.5 Urine Specific [place] 1.013 Urine Protein NEG Urine Glucose (UA) NEG Urine Ketones NEG Urine Occult Blood NEG Urine Nitrite NEG Urine Bilirubin NEG Urine Urobilinogen NEG Urine Leukocyte Esterase TRACE Urine WBC (Auto) 5-10 /hpf Urine RBC (Auto) 5-10 /hpf Urine Hyaline Casts (Auto) 5-10 /lpf Urine Epithelial Cells (Auto) >30 /lpf Urine Bacteria (Auto) NEG
--- NOTE | 2017-09-27 19:24 | DIAGNOSTIC IMAGING REPORT ---
(CHEST) THORAX WITHOUT CLINICAL HISTORY: History of smoking. Multiple hepatic masses. Possible metastatic disease. COMPARISON STUDY: Chest x-ray dated 09/27/2017 CT DOSE: 340.62 mGy.cm TECHNIQUE: CT of the thorax was performed from the thoracic inlet to the lung bases. Images are reviewed in the axial, sagittal, and coronal planes. IV contrast was not administered for this examination. A dose lowering technique was utilized adhering to the principles of ALARA. FINDINGS: Thyroid: Imaged portions of the thyroid gland are normal in appearance. Thoracic aorta: The thoracic aorta is normal in course and caliber, noting standard 3 vessel arch anatomy. Heart: The heart is enlarged. There are mild coronary artery calcifications. Lungs and pleural spaces: There is respiratory motion artifact. There is suspected underlying interstitial lung disease with subpleural reticulation. There is no focal pulmonary consolidation. There is a 5 mm right middle lobe pulmonary nodule as visualized in image #[id number]. There is a 6 mm pulmonary nodule within the lingula as visualized in image #[id number]. Mediastinum: There are minimally enlarged mediastinal lymph nodes measuring up to 11 mm in short axis. [place]: There is no evidence of pathologic hilar adenopathy given the limitations of a noncontrast study Axilla: There is no evidence of pathologic axillary lymphadenopathy Upper abdomen: There are multiple hepatic masses, suspicious for metastatic disease. There is left lobe ductal dilatation. Skeletal structures: There are no lytic or blastic osseous lesions. IMPRESSION: 1. Minimally enlarged mediastinal lymph nodes 2. 5 mm right middle lobe pulmonary nodule, and 6 mm lingular pulmonary nodule 3. Suspected underlying interstitial lung disease with subpleural reticulation 4. Multiple hepatic masses suspicious for metastatic disease Electronically signed by: Austin Messer M.D. 09/27/2017 7:22 PM Dictated Date/Time: 09/27/2017 7:16 PM
[2017-09-27] MEDS ORDERED: ZOLEDRONIC ACID INJ 4 MG in SODIUM CHLORIDE 0.9% 100ML 100 ML IV ONE (19:30)
--- NOTE | 2017-09-27 20:25 | DIAGNOSTIC IMAGING REPORT ---
BILIARY ULTRASOUND CLINICAL HISTORY: Abnormal CT scan. Hepatic masses. COMPARISON STUDY: CT scan dated September 27, 2017 FINDINGS: The examination was limited from a technical standpoint. The patient was uncooperative and refused completion of the study. The pancreas is heterogeneous without evidence of focal mass. The gallbladder contains calculi and sludge. The gallbladder wall is thickened measuring 4 mm. There is trace pericholecystic fluid. The common bile duct measures 5 mm There is no right-sided hydronephrosis. The liver is diffusely heterogeneous in echotexture. There is an equivocal 4 cm left lobe hepatic mass. The additional multiple hepatic masses visualized on CT scanning are difficult to discern ultrasonographically. IMPRESSION: 1. Technically limited study 2. Diffusely heterogeneous hepatic echotexture. The discrete masses identified on the CT scan are difficult to discern ultrasonographically 3. Cholelithiasis and gallbladder wall thickening. 5 mm common bile duct Electronically signed by: Austin Messer M.D. 09/27/2017 8:23 PM Dictated Date/Time: 09/27/2017 8:19 PM
[2017-09-27 20:30] VITALS: BP 143/73; PULSE 57; TEMP 36.8; O2SAT 93
[2017-09-27] MEDS: SODIUM CHLORIDE 0.9% 1000ML 1,000 ML IV SCH (23:05)
[2017-09-27 23:46] VITALS: BP 134/73; PULSE 93; TEMP 37.3; O2SAT 92
[2017-09-28] VITALS (12 sets, daily range): BP systolic 121–161; BP diastolic 66–81; PULSE 62–86; TEMP 36.4–37.7; O2SAT 92–97
[2017-09-28 01:54] LABS: CALCIUM 14.2 mg/dl (8.5-10.1); CREATININE 1.5 mg/dl (0.60-1.40); POTASSIUM 3.6 mmol/L (3.5-5.1)
[2017-09-28] MEDS: SODIUM CHLORIDE 0.9% 1000ML 1,000 ML IV SCH ×5 (04:09→23:33)
[2017-09-28] MEDS ORDERED: HALOPERIDOL LACTATE 5 MG/ML 1 ML VIAL ONE (07:13)
[2017-09-28] MEDS ORDERED: HALOPERIDOL LACTATE 5 MG/ML 1 ML VIAL IM PRN (07:15)
[2017-09-28] MEDS: HALOPERIDOL 1 MG TAB PO PRN ×3 (07:59→18:18)
[2017-09-28] MEDS: AMLODIPINE BESYLATE 5 MG TAB PO SCH (08:45)
[2017-09-28] MEDS ORDERED: NON-FORMULARY MEDICATION (Omeprazole (Prilosec) 20 MG) PO SCH (09:00)
[2017-09-28 09:30] LABS: HEMATOCRIT 40.5 % (42-52); HEMOGLOBIN 13.8 g/dL (14.0-18.0); MEAN CELL VOLUME 94.6 fL (80-100); MEAN CORPUSCULAR HEMOGLOBIN 32.2 pg (25-34); MEAN CORPUSCULAR HGB CONC 34.1 g/dl (32-36); MEAN PLATELET VOLUME 10.8 fL (7.4-10.4); PLATELET COUNT 171 K/uL (130-400); RED CELL DISTRIBUTION WIDTH CV 13.6 % (11.5-14.5); RED CELL DISTRIBUTION WIDTH SD 46.9 fL (36.4-46.3); WHITE BLOOD COUNT 12.12 K/uL (4.8-10.8)
[2017-09-28 10:03] LABS: ALBUMIN 2.8 gm/dl (3.4-5.0); CALCIUM 13.8 mg/dl (8.5-10.1); CREATININE 1.38 mg/dl (0.60-1.40); POTASSIUM 3.2 mmol/L (3.5-5.1)
[2017-09-28 10:06] LABS: TOTAL PROTEIN 7.4 gm/dl (6.4-8.2)
--- NOTE | 2017-09-28 10:34 | Gastrointestinal Consultation ---
Gastrointestinal Consultation Date of Consultation: Sep 28, 2017 Attending Physician: Prieto Consulting Physician: Anders Reason for Consultation: liver lesions History of Present Illness Patient is a 72 year old male w/ PMH significant for dyslipidemia, HH, HTN, GERD , basal cell carcinoma and others listed below who presents in through the ED for evaluation of elevated calcium - GI was asked to evaluate the pt as CT imaging is concerning for liver malignancy. Pt was seen and evaluated, chart reviewed. Pt has had elevated LFTs dating back to 2013 in [facility]. Pt was to see PCP this week w/ repot of weight loss, fatigue, weakness x 2 months, labs were obtained, show mildly elevated LFTs and calcium > 15 and was sent to the ED. Pt notes that he has had vague complaints of feeling unwell for maybe 2 months. Decreased appetite, early satiety, abdominal fullness, back pain, weight loss, fatigue. Denies persistent right sided abd pain, no nausea, vomiting. Denies dark urine, hugo colored stools. Lost 20lbs in one month. No fever, chills, CP, SOB ETOH: 3-4 beers daily x 20 years Tobacco: past use EGD: years ago, per pt HH and H.Pylori Colonoscopy: years ago, per pt WNL Liver US 09/27/17: Technically limited study Diffusely heterogeneous hepatic echotexture. The discrete masses identified on the CT scan are difficult to discern ultrasonographically Cholelithiasis and gallbladder wall thickening. [address] bile duct [address] Chest 09/27/17: Minimally enlarged mediastinal lymph nodes 5 mm right middle lobe pulmonary nodule, and 6 mm lingular pulmonary noduleSuspected underlying interstitial lung disease with subpleural reticulation. Multiple hepatic masses suspicious for metastatic disease CT ABD/Pelvis 09/27/17: Intrahepatic biliary ductal dilatation limited to the left hepatic lobe raises concern for an obstructing mass at the level of the left aspect of the liver hilum. Given the presence of multiple suspicious lesions throughout the right hepatic lobe, which are concerning for metastases, the primary differential consideration is cholangiocarcinoma with hepatic spread. Differential considerations include an extrahepatic primary with diffuse livermetastases and secondary obstruction of the left hepatic ducts due to metastaticlesions. However, no extrahepatic malignancy is evident on this noncontrast CT.Ultrasound of the liver is recommended for potential fine-needle biopsy fortissue sampling.Upper abdominal lymphadenopathy. Extensive reticular opacities at the lung bases with subtle bronchiectasis could suggest underlying fibrotic lung disease such as nonspecific interstitiapneumonitis, chronic aspiration, or smoking related lung injury. The report will be called/faxed according to standard departmental protocol. Family history of GI malignancy: none Family history of liver disease: none Past Medical/Surgical History Medical Problems: (1) Dilated bile duct Status: Acute (2) Hypercalcemia Status: Acute (3) Liver mass Status: Acute Past Medical History: HTN, HH, GERD, BPH, elevated LFTs, dyslipidemia, BPH, basal cell carcinoma Past Surgical History: EGD, colonoscopy Social History Smoking Status: Former Smoker Marital Status: Occupation Status: retired Allergies Coded Allergies: Yvette Nut (Verified Allergy, Unknown, RASH, 09/28/17) Red, puffy eyes NO KNOWN DRUG ALLERGIES (Unverified Allergy, Unknown, NONE, 09/27/17) Scallop (Verified Allergy, Unknown, GI SYMPTOMS, 09/28/17) Current Medications Home Meds and Scripts Medications Dose Route/Sig Max Daily Dose Days Date Category Aristocort 0.1% (Triamcinolone Acet) 90 Appln/30 Gm Cr 1 Appln TOP DAILY 09/27/17 Reported Vitamin C (Ascorbic Acid) 100 Mg Tab 1 Tab PO DAILY 09/27/17 Reported Prilosec (Omeprazole) 20 Mg Capcr 20 Mg PO DAILY PRN 09/27/17 Reported [place]-3 (Fish Oil) 1 Ea Cap 1 Cap PO DAILY 09/27/17 Reported Multivitamin (Multivitamins) Tab 1 Tab PO DAILY 09/27/17 Reported Milk Thistle (Milk Thistle (Silybum Marianum) 1,000 Mg Cap 1 Cap PO DAILY 09/27/17 Reported Vitamin B-12 (Cyanocobalamin) 1,000 Mcg Tab 1,000 Mcg PO DAILY 09/27/17 Reported Vitamin D3 (Cholecalciferol) 1,000 Unit Tab 3 Tab PO DAILY 09/27/17 Reported Norvasc (Amlodipine Besylate) 10 Mg Tab 10 Mg PO DAILY 09/27/17 Reported Review of Systems Constitutional: + weight loss, + weakness, + fatigue, No fever, No chills ENT: No unusual epistaxis, No trouble swallowing, No pain on swallowing Respiratory: No cough, No sputum, No shortness of breath, No dyspnea on exertion Cardiac: No chest pain, No edema Abdomen: + pain, No nausea, No vomiting, No diarrhea, No constipation, No GI bleeding, No dysphagia, No odynophagia, No acolic stools, No jaundice, No dark urine Musculoskeletal: + problem reported (back pain) Neuro: No numbness/tingling, No balance problems Heme: No abnormal bleeding/bruising, No night sweats Endo: + fatigue Skin: No rash, No itch, No color change, No bleeding, No jaundice Physical Exam Date Time Temp Pulse Resp B/P (MAP) Pulse Ox O2 Delivery O2 Flow Rate FiO2 09/28/17 08:17 36.8 74 18 121/79 (93) 97 09/28/17 08:00 92 Room Air 09/28/17 08:00 Room Air 09/28/17 04:46 36.8 62 19 134/66 (88) 92 Room Air 09/28/17 04:00 Room Air 09/28/17 00:00 Room Air 09/27/17 23:46 37.3 93 19 134/73 (93) 92 Room Air 09/27/17 20:30 36.8 57 20 143/73 (96) 93 Room Air 09/27/17 20:00 Room Air 09/27/17 15:30 Room Air 09/27/17 14:59 58 16 143/72 93 09/27/17 14:30 93 Room Air 09/27/17 14:21 58 16 143/72 93 Room Air 09/27/17 11:32 63 09/27/17 11:17 36.4 54 18 122/75 95 Room Air General Appearance: no apparent distress Eyes: PERRL ENT: hearing grossly normal Neck: supple, thyroid normal, no JVD, trachea midline Respiratory/Chest: lungs clear, normal breath sounds, no respiratory distress, no accessory muscle use Cardiovascular: regular rate, rhythm, no edema, no gallop, no JVD Abdomen: normal bowel sounds, non tender, soft, no organomegaly, no pulsatile mass Neurologic/Psych: alert, normal mood/affect, oriented x 3 Skin: normal color, no jaundice, warm/dry, no rash Laboratory Results Last 24 Hours Test 09/27/17 11:51 09/27/17 12:50 09/28/17 00:45 09/28/17 09:11 White Blood Count 10.51 K/uL 12.12 K/uL Red Blood Count 4.46 M/uL 4.28 M/uL Hemoglobin 14.5 g/dL 13.8 g/dL Hematocrit 41.5 % 40.5 % Mean Corpuscular Volume 93.0 fL 94.6 fL Mean Corpuscular Hemoglobin 32.5 pg 32.2 pg Mean Corpuscular Hemoglobin Concent 34.9 g/dl 34.1 g/dl Platelet Count 187 K/uL 171 K/uL Mean Platelet Volume 10.6 fL 10.8 fL Neutrophils (%) (Auto) 69.5 % Lymphocytes (%) (Auto) 16.7 % Monocytes (%) (Auto) 10.7 % Eosinophils (%) (Auto) 2.4 % Basophils (%) (Auto) 0.4 % Neutrophils # (Auto) 7.32 K/uL Lymphocytes # (Auto) 1.75 K/uL Monocytes # (Auto) 1.12 K/uL Eosinophils # (Auto) 0.25 K/uL Basophils # (Auto) 0.04 K/uL RDW Standard Deviation 46.5 fL 46.9 fL RDW Coefficient of Variation 13.6 % 13.6 % Immature Granulocyte % (Auto) 0.3 % Immature Granulocyte # (Auto) 0.03 K/uL Prothrombin Time 14.1 SECONDS Prothromb Time International Ratio 1.4 Activated Partial Thromboplast Time 28.0 SECONDS Partial Thromboplastin Ratio 1.1 Sodium Level 136 mmol/L 138 mmol/L 138 mmol/L Potassium Level 3.6 mmol/L 3.6 mmol/L 3.2 mmol/L Chloride Level 101 mmol/L 106 mmol/L 104 mmol/L Carbon Dioxide Level 28 mmol/L 24 mmol/L 27 mmol/L Anion Gap 7.0 mmol/L 8.0 mmol/L 7.0 mmol/L Blood Urea Nitrogen 19 mg/dl 20 mg/dl 20 mg/dl Creatinine 1.59 mg/dl 1.50 mg/dl 1.38 mg/dl Est Creatinine Clear Calc Drug Dose 43.4 ml/min 46.0 ml/min 50.4 ml/min Estimated GFR () 49.5 53.1 58.8 Estimated GFR (Non- 42.7 45.9 50.7 BUN/Creatinine Ratio 11.9 13.2 14.6 Random Glucose 90 mg/dl 92 mg/dl 88 mg/dl Calcium Level 15.0 mg/dl 14.2 mg/dl 13.8 mg/dl Magnesium Level 1.7 mg/dl 1.6 mg/dl Total Bilirubin 1.2 mg/dl 1.2 mg/dl Aspartate Amino Transf (AST/SGOT) 74 U/L 74 U/L Alanine Aminotransferase (ALT/SGPT) 49 U/L 43 U/L Alkaline Phosphatase 241 U/L 192 U/L Total Creatine Kinase 114 U/L Troponin I < 0.015 ng/ml Total Protein 8.1 gm/dl 7.4 gm/dl Albumin 2.9 gm/dl 2.8 gm/dl Globulin 5.2 gm/dl 4.6 gm/dl Albumin/Globulin Ratio 0.6 0.6 Carcinoembryonic Antigen 3.5 ng/ml Thyroid Stimulating Hormone (TSH) 3.310 uIu/ml Free Thyroxine 1.20 ng/dl Urine Color DK YELLOW Urine Appearance CLEAR Urine pH 5.5 Urine Specific [place] 1.013 Urine Protein NEG Urine Glucose (UA) NEG Urine Ketones NEG Urine Occult Blood NEG Urine Nitrite NEG Urine Bilirubin NEG Urine Urobilinogen NEG Urine Leukocyte Esterase TRACE Urine WBC (Auto) 5-10 /hpf Urine RBC (Auto) 5-10 /hpf Urine Hyaline Casts (Auto) 5-10 /lpf Urine Epithelial Cells (Auto) >30 /lpf Urine Bacteria (Auto) NEG Impression Patient is a 72 year old male w/ weight loss of 20 lbs, fatigue, weakness, intermittent abdominal pain w/ fullness and decreased appetite who presented to PCP for symptoms - was sent to ED for abnormal calcium level CT concerning for metastatic hepatic disease w/ question of larger lesion in left hilum w/ ductal dilation. He has a history of daily ETOH use, mildly elevated LFTs dating back to 2013. His abdominal exam is benign, but can have intermittent upper abd pain and fullness at times. Today, VSS, WBC 12, TB 1.2, AST 74, ALT 43, ALKP [address] He was evaluated by Dr[address] Friend, brunilda/onc who was planning for an US guided liver biopsy, however, after discussion w/ Dr. Moreau radiology suggested EUS guided biopsy. Plan - GI is trying to arrange EUS - In event this can be done tomorrow - NPO after midnight - No NSAIDs - No AC - Will need PLTs, PT/INR, PTT in AM - GI to follow, please call with any questions or concerns ATTESTATION: I have performed a history and physical examination of this patient and reviewed the electronic record. Specifically, on physical examination there is no abdominal tenderness. I have discussed the case with Dr. Piper Currie who will proceed with EUS guided FNA/liver biopsy. I have discussed the case with SADI Alvarenga. The above note reflects my findings, conclusions, and recommendations. Efren Mcnamara MD
[2017-09-28] MEDS ORDERED: POTASSIUM CHLORIDE 20 MEQ TABCR PO ONE (11:15)
[2017-09-28] MEDS: MAGNESIUM SULFATE 1GM / D5W 1 GM in PREMIXED IN D5W 100 ML IV SCH ×2 (11:19→12:20)
--- NOTE | 2017-09-28 13:48 | DIAGNOSTIC IMAGING REPORT ---
BONE SCAN WHOLE BODY CLINICAL HISTORY: Hypercalcemia, rule out bone mets COMPARISON STUDY: CT of the chest abdomen and pelvis September 27, 2017. TECHNIQUE: 26.8 mCi of technetium 99m MDP was injected IV at 9:58 AM on September 28, 2017. Whole body imaging was performed in the anterior and posterior projections 3 hours following injection. FINDINGS: Prominent renal uptake is noted. Uptake within the shoulders and knees is degenerative. Symmetric bilateral upper cervical spine uptake is likely degenerative. Uptake at the start clavicular joints is degenerative. There are no foci to suggest metastatic disease. Faint uptake projecting over the midline of the upper abdomen. IMPRESSION: 1. No evidence of skeletal metastatic disease. 2. Increased renal uptake which can be seen in the setting of hypercalcemia. 3. Faint upper abdominal soft tissue uptake which may reflect uptake within one of the hepatic lesions shown on prior CT. Electronically signed by: Leonides Pompa M.D. 09/28/2017 1:47 PM Dictated Date/Time: 09/28/2017 1:42 PM
[2017-09-28] MEDS ORDERED: CEFTRIAXONE SOD INJ 1 GM in DEXTROSE 5% ADD-VANTAGE 50ML 50 ML IV SCH (14:00)
--- NOTE | 2017-09-28 18:26 | Hematology/Oncology Prog Note ---
Hematology/Onc Progress Note Date of Service Sep 28, 2017. Subjective I saw him at bedside in the evening, his was also at bedside, reviewed his chart including additional diagnostic workup done in the last 24 hours. -CT scan of chest done on 09/27/2017--> slightly enlarged mediastinal lymph node measuring up to 1.1 cm noted, no pathologically enlarged hilar lymphadenopathy noted, 5 mm right middle lobe lung nodule and 6 mm lingular lung nodule noted. Suspected interstitial lung disease with subpleural reticulation. Multiple liver lesions noted. -ultrasound of the liver done on 09/27/2017--> diffuse heterogeneous liver echotexture, no discrete mass identified, equivocal 4 cm left lobe of the liver mass noted. -Bone scan done on 09/28/2017--> negative for metastatic disease. He received Zometa 4 mg x1 dose on 09/27/2017. I reviewed his blood workup done today, overall stable blood counts, improvement of the kidney function noted, creatinine level is around 1.3, calcium level dropped down to around 13.8. - magnesium--> 1.6, Total bilirubin: 1.2, AST 74, ALT 43, alkaline phosphatase 192, albumin 2.8 - alpha-fetoprotein level and CA 19-9 level--> pending. Seen by GI today, the planning for upper GI endoscopic evaluation and ultrasound-guided biopsy of the liver lesion or upper abdominal lymph node. I spoke with the patient 's in reviewed with her regarding the further diagnostic workup done in the last 24 hour, he did not experience any new symptoms. He is feeling weak and tired otherwise hemodynamically stable, no fever. No bleeding from any sites. Mild back pain present Will follow-up. Dr. Rodrigo Friend Hem/Onc Vital Signs Vital Signs Past 12 Hours Date Time Temp Pulse Resp B/P (MAP) Pulse Ox O2 Delivery O2 Flow Rate FiO2 09/28/17 15:40 37.7 67 18 158/76 (103) 96 Room Air 09/28/17 15:30 Room Air 09/28/17 12:20 Room Air 09/28/17 12:20 37.1 09/28/17 11:21 37.0 86 18 129/71 (90) 95 09/28/17 08:17 36.8 74 18 121/79 (93) 97 09/28/17 08:00 92 Room Air 09/28/17 08:00 Room Air
--- NOTE | 2017-09-28 19:06 | Progress Note ---
Internal Med Progress Note Date of Service: Sep 28, 2017. Provider Documentation: SUBJECTIVE: was agitated in the morning and hung feliciano was called wanted to go home adamantly and son talked to him and later he was more calmer and cooperative afebrile denies any pain no sob poor appetite received Haldol and later was drowsy OBJECTIVE: Vital Signs-as noted below Exam: General-alert and wake and agitated earlier. drowsy now ENT-normal hearing Neck-no neck masses Lungs-cta b/l no wheezing no crackles Heart-s1 and s2 heard regular no murmurs Abdomen-soft bowel sounds present non tender no distension Extremities-no edema no erythema Neuro-drowsy Lab data as noted below. ASSESSMENT & PLAN: This is a 72yo M with a PMH of HTN, HLD who presents with generalized malaise and unintentional weight loss x 2 months found to be hypercalcemic at 15 with liver abnormalities on abd/pelvis CT concerning for malignancy. Hypercalcemia: presented with calcium 15 started on ns@200ml/hr zometa iv given by heme/onco Concern for malignancy of liver, cholangiocarcinoma with hepatic spread bone scan negative for skeletal metastasis Heme/onco on board and appreciate inputs Intrahepatic ductal dilatation, liver lesions on ct scan and US plan for EUS and biopsy tomorrow by GI heme/onco on board. HTN: Recently discontinued lisinopril, hctz due to hypotension On amlodipine will monitor Reticular opacities of lung bases: -On CXR suspected underlying interstitial lung disease on ct scan needs f/u lung nodules DVT Ppx: SCDs for now. DISPOSITION monitor in tele to be determined Vital Signs: Date Time Temp Pulse Resp B/P (MAP) Pulse Ox O2 Delivery O2 Flow Rate FiO2 09/28/17 15:40 37.7 67 18 158/76 (103) 96 Room Air 09/28/17 15:30 Room Air 09/28/17 12:20 Room Air 09/28/17 12:20 37.1 09/28/17 11:21 37.0 86 18 129/71 (90) 95 09/28/17 08:17 36.8 74 18 121/79 (93) 97 09/28/17 08:00 92 Room Air 09/28/17 08:00 Room Air 09/28/17 04:46 36.8 62 19 134/66 (88) 92 Room Air 09/28/17 04:00 Room Air 09/28/17 00:00 Room Air 09/27/17 23:46 37.3 93 19 134/73 (93) 92 Room Air 09/27/17 20:30 36.8 57 20 143/73 (96) 93 Room Air 09/27/17 20:00 Room Air Lab Results: Results Past 24 Hours Test 09/28/17 00:45 09/28/17 09:11 Range/Units Sodium Level 138 138 136-145 mmol/L Potassium Level 3.6 3.2 3.5-5.1 mmol/L Chloride Level 106 104 98-107 mmol/L Carbon Dioxide Level 24 27 21-32 mmol/L Anion Gap 8.0 7.0 3-11 mmol/L Blood Urea Nitrogen 20 20 7-18 mg/dl Creatinine 1.50 1.38 0.60-1.40 mg/dl Est Creatinine Clear Calc Drug Dose 46.0 50.4 ml/min Estimated GFR () 53.1 58.8 Estimated GFR (Non- 45.9 50.7 BUN/Creatinine Ratio 13.2 14.6 10-20 Random Glucose 92 88 70-99 mg/dl Calcium Level 14.2 13.8 8.5-10.1 mg/dl White Blood Count 12.12 4.8-10.8 K/uL Red Blood Count 4.28 4.7-6.1 M/uL Hemoglobin 13.8 14.0-18.0 g/dL Hematocrit 40.5 42-52 % Mean Corpuscular Volume 94.6 80-100 fL Mean Corpuscular Hemoglobin 32.2 25-34 pg Mean Corpuscular Hemoglobin Concent 34.1 32-36 g/dl RDW Standard Deviation 46.9 36.4-46.3 fL RDW Coefficient of Variation 13.6 11.5-14.5 % Platelet Count 171 130-400 K/uL Mean Platelet Volume 10.8 7.4-10.4 fL Magnesium Level 1.6 1.8-2.4 mg/dl Total Bilirubin 1.2 0.2-1 mg/dl Aspartate Amino Transf (AST/SGOT) 74 15-37 U/L Alanine Aminotransferase (ALT/SGPT) 43 12-78 U/L Alkaline Phosphatase 192 45-117 U/L Total Protein 7.4 6.4-8.2 gm/dl Albumin 2.8 3.4-5.0 gm/dl Globulin 4.6 2.5-4.0 gm/dl Albumin/Globulin Ratio 0.6 0.9-2
--- NOTE | 2017-09-28 20:04 | Progress Note ---
Internal Med Progress Note Date of Service: Sep 28, 2017. Provider Documentation: SUBJECTIVE: Made aware by RN around 8 PM of increased agitation, tremors History EtOH abuse as per RN. Intermittent fever Gabapentin, Ativan given as per ETOH withdrawal protocol Decreased responsiveness noted around 10 PM. OBJECTIVE: Vital Signs-as noted below Exam: General-minimally responsive to pain, no respiratory distress HEENT -pale palpebral conjunctivae, dry buccal mucosa Neck-supple Lungs-decreased effort Heart-RRR Abdomen-some distention, no overt tenderness Extremities-min LE edema, no tenderness NE minimally responsive to pain, miotic pupils, no facial asymmetry CT head initial read no acute pathology AP Encephalopathy Multifactorial : Delirium tremens Hypercalcemia Ativan/Gabapentin effect Sepsis, ? Biliary source ? Structural intracranial pathology (? CVA, hx atrial flutter on admission; [employer] mets Hold Ativan/Gabapentin for excess sedation/confusion Add Calcitonin subcutaneous to biphosphonate Rx, monitor serum calcium, continue NSS CS, Unasyn for now for possible biliary sepsis, DC IV Ceftriaxone MRI brain combo in a.m. if no improvement in mentation Will relay to AM provider. Vital Signs: Date Time Temp Pulse Resp B/P (MAP) Pulse Ox O2 Delivery O2 Flow Rate FiO2 09/29/17 07:48 36.9 65 18 115/74 (88) 97 09/29/17 06:10 36.8 68 24 129/76 (93) 93 Room Air 09/29/17 03:55 36.9 69 24 124/83 (97) 93 Room Air 09/29/17 03:50 Room Air 09/29/17 03:02 36.8 65 24 129/70 (89) 92 Room Air 09/29/17 02:00 36.5 69 24 136/87 (103) 91 Room Air 09/29/17 01:00 36.7 67 22 154/77 (102) 93 Room Air 09/29/17 00:11 36.7 68 28 145/75 (98) 95 Room Air 09/28/17 23:35 Room Air 09/28/17 22:53 37.3 80 26 155/74 (101) 93 Room Air 09/28/17 21:52 36.4 76 22 161/81 (107) 93 Room Air 09/28/17 21:30 37.6 76 20 147/76 (99) 93 Room Air 09/28/17 21:12 37.1 76 20 154/74 (100) 94 Room Air 09/28/17 20:45 37.6 83 22 153/77 (102) 93 Room Air 09/28/17 20:30 Room Air 09/28/17 19:37 36.7 72 18 157/73 (101) 94 Room Air 09/28/17 15:40 37.7 67 18 158/76 (103) 96 Room Air 09/28/17 15:30 Room Air 09/28/17 12:20 Room Air 09/28/17 12:20 37.1 09/28/17 11:21 37.0 86 18 129/71 (90) 95 09/28/17 08:17 36.8 74 18 121/79 (93) 97 Lab Results: Results Past 24 Hours Test 09/28/17 09:11 09/28/17 20:50 09/28/17 22:54 09/29/17 02:30 Range/Units White Blood Count 12.12 4.8-10.8 K/uL Red Blood Count 4.28 4.7-6.1 M/uL Hemoglobin 13.8 14.0-18.0 g/dL Hematocrit 40.5 42-52 % Mean Corpuscular Volume 94.6 80-100 fL Mean Corpuscular Hemoglobin 32.2 25-34 pg Mean Corpuscular Hemoglobin Concent 34.1 32-36 g/dl RDW Standard Deviation 46.9 36.4-46.3 fL RDW Coefficient of Variation 13.6 11.5-14.5 % Platelet Count 171 130-400 K/uL Mean Platelet Volume 10.8 7.4-10.4 fL Sodium Level 138 137 136-145 mmol/L Potassium Level 3.2 3.8 3.5-5.1 mmol/L Chloride Level 104 106 98-107 mmol/L Carbon Dioxide Level 27 24 21-32 mmol/L Anion Gap 7.0 7.0 3-11 mmol/L Blood Urea Nitrogen 20 18 7-18 mg/dl Creatinine 1.38 1.37 0.60-1.40 mg/dl Est Creatinine Clear Calc Drug Dose 50.4 50.8 ml/min Estimated GFR () 58.8 59.3 Estimated GFR (Non- 50.7 51.2 BUN/Creatinine Ratio 14.6 12.8 10-20 Random Glucose 88 103 70-99 mg/dl Calcium Level 13.8 12.5 8.5-10.1 mg/dl Magnesium Level 1.6 1.8-2.4 mg/dl Total Bilirubin 1.2 0.2-1 mg/dl Aspartate Amino Transf (AST/SGOT) 74 15-37 U/L Alanine Aminotransferase (ALT/SGPT) 43 12-78 U/L Alkaline Phosphatase 192 45-117 U/L Total Protein 7.4 6.4-8.2 gm/dl Albumin 2.8 3.4-5.0 gm/dl Globulin 4.6 2.5-4.0 gm/dl Albumin/Globulin Ratio 0.6 0.9-2 Lactic Acid Level 1.8 0.4-2.0 mmol/L Procalcitonin 0.37 0-0.5 ng/ml Ammonia 33.7 11-32 umol/L Lipase 88 73-393 U/L Urine Opiates Screen NEG NEG Urine Methadone, Qualitative NEG NEG Urine Barbiturates NEG NEG Urine Phencyclidine (PCP) Level NEG NEG Ur Amphetamine/Methamphetamine NEG NEG MDMA (Ecstasy) Screen NEG NEG Urine Benzodiazepines Screen NEG NEG Urine Cocaine Metabolite NEG NEG Urine Marijuana (THC) NEG NEG Test 09/29/17 06:39 09/29/17 06:40 Range/Units Prothrombin Time 16.2 9.0-12.0 SECONDS Prothromb Time International Ratio 1.6 0.9-1.1 Activated Partial Thromboplast Time 35.5 21.0-31.0 SECONDS Partial Thromboplastin Ratio 1.4 Ammonia 50.7 11-32 umol/L White Blood Count 8.30 4.8-10.8 K/uL Red Blood Count 3.98 4.7-6.1 M/uL Hemoglobin 12.8 14.0-18.0 g/dL Hematocrit 36.9 42-52 % Mean Corpuscular Volume 92.7 80-100 fL Mean Corpuscular Hemoglobin 32.2 25-34 pg Mean Corpuscular Hemoglobin Concent 34.7 32-36 g/dl Platelet Count 136 130-400 K/uL Mean Platelet Volume 10.6 7.4-10.4 fL Neutrophils (%) (Auto) 81.3 % Lymphocytes (%) (Auto) 8.0 % Monocytes (%) (Auto) 10.2 % Eosinophils (%) (Auto) 0.1 % Basophils (%) (Auto) 0.2 % Neutrophils # (Auto) 6.74 1.4-6.5 K/uL Lymphocytes # (Auto) 0.66 1.2-3.4 K/uL Monocytes # (Auto) 0.85 0.11-0.59 K/uL Eosinophils # (Auto) 0.01 0-0.5 K/uL Basophils # (Auto) 0.02 0-0.2 K/uL RDW Standard Deviation 46.4 36.4-46.3 fL RDW Coefficient of Variation 13.6 11.5-14.5 % Immature Granulocyte % (Auto) 0.2 % Immature Granulocyte # (Auto) 0.02 0.00-0.02 K/uL Sodium Level 139 136-145 mmol/L Potassium Level 3.2 3.5-5.1 mmol/L Chloride Level 108 98-107 mmol/L Carbon Dioxide Level 23 21-32 mmol/L Anion Gap 8.0 3-11 mmol/L Blood Urea Nitrogen 16 7-18 mg/dl Creatinine 1.20 0.60-1.40 mg/dl Est Creatinine Clear Calc Drug Dose 57.7 ml/min Estimated GFR () 69.6 Estimated GFR (Non- 60.1 BUN/Creatinine Ratio 12.9 10-20 Random Glucose 103 70-99 mg/dl Calcium Level 10.9 8.5-10.1 mg/dl Magnesium Level 1.4 1.8-2.4 mg/dl Total Bilirubin 0.8 0.2-1 mg/dl Direct Bilirubin 0.4 0-0.2 mg/dl Aspartate Amino Transf (AST/SGOT) 66 15-37 U/L Alanine Aminotransferase (ALT/SGPT) 36 12-78 U/L Alkaline Phosphatase 177 45-117 U/L Total Protein 6.7 6.4-8.2 gm/dl Albumin 2.3 3.4-5.0 gm/dl Microbiology Results 09/28/17 Blood Culture, Received Pending 09/28/17 Blood Culture, Received Pending
[2017-09-28] MEDS ORDERED: MULTI-VITAMIN INFUSION INJ 10 ML, THIAMINE HCL INJ 100 MG, FoLIC ACID INJ 1 MG, POTASSI... IV ONE ×5 (20:15)
[2017-09-28] MEDS ORDERED: GABAPENTIN 600 MG TAB PO SCH ×2 (20:15)
[2017-09-28] MEDS: LORAZEPAM 2 MG/ML 1 ML VIAL IV PRN ×2 (20:18→22:30)
[2017-09-28 21:26] LABS: CALCIUM 12.5 mg/dl (8.5-10.1); CREATININE 1.37 mg/dl (0.60-1.40)
[2017-09-28 21:52] LABS: POTASSIUM 3.8 mmol/L (3.5-5.1)
[2017-09-28] MEDS ORDERED: CALCITONIN SALMON 400 INTER.UNIT/2 ML SQ SCH (23:00)
[2017-09-28] MEDS ORDERED: AMPICILLIN/SULBACTAM SOD INJ 3,000 MG in SODIUM CHLORIDE 0.9% 100ML 100 ML IV STA (23:27)
[2017-09-29] VITALS (11 sets, daily range): BP systolic 109–154; BP diastolic 63–87; PULSE 57–72; TEMP 36.1–38.1; O2SAT 90–97
[2017-09-29] MEDS: SODIUM CHLORIDE 0.9% 1000ML 1,000 ML IV SCH ×2 (03:02→09:38)
[2017-09-29] MEDS: AMPICILLIN/SULBACTAM SOD INJ 3,000 MG in SODIUM CHLORIDE 0.9% 100ML 100 ML IV SCH ×3 (05:38→17:29)
[2017-09-29] MEDS: GABAPENTIN 600MG Q6H DOSE PO SCH ×2 (06:00→11:24)
--- NOTE | 2017-09-29 06:53 | DIAGNOSTIC IMAGING REPORT ---
HEAD WITHOUT CONTRAST (CT) CT DOSE: 614.27 mGy.cm HISTORY: Mental status change ams TECHNIQUE: Multiaxial CT images of the head were performed without the use of intravenous contrast. A dose lowering technique was utilized adhering to the principles of ALARA. Comparison: None. Findings: The paranasal sinuses and mastoid air cells are clear. The calvarium and skull base are intact. The ventricles and sulci are within normal limits. There is no mass, hematoma, midline shift, or acute infarct. Impression: No acute intracranial abnormality. Mild age-related atrophy and chronic small vessel change The above report was generated using voice recognition software. It may contain grammatical, syntax or spelling errors. Electronically signed by: Yao Mariee M.D. 09/29/2017 6:52 AM Dictated Date/Time: 09/29/2017 6:51 AM
[2017-09-29 06:54] LABS: BASO % 0.2 %; BASO ABS # 0.02 K/uL (0-0.2); EOS % 0.1 %; EOS ABS # 0.01 K/uL (0-0.5); HEMATOCRIT 36.9 % (42-52); HEMOGLOBIN 12.8 g/dL (14.0-18.0); IG# 0.02 K/uL (0.00-0.02); LYMPH ABS # 0.66 K/uL (1.2-3.4); MEAN CELL VOLUME 92.7 fL (80-100); MEAN CORPUSCULAR HEMOGLOBIN 32.2 pg (25-34); MEAN CORPUSCULAR HGB CONC 34.7 g/dl (32-36); MEAN PLATELET VOLUME 10.6 fL (7.4-10.4); MONO % 10.2 %; MONO ABS # 0.85 K/uL (0.11-0.59); NEUT % 81.3 %; NEUT ABS # 6.74 K/uL (1.4-6.5); PLATELET COUNT 136 K/uL (130-400); RED CELL DISTRIBUTION WIDTH CV 13.6 % (11.5-14.5); RED CELL DISTRIBUTION WIDTH SD 46.4 fL (36.4-46.3)
[2017-09-29 07:08] LABS: INR 1.6 (0.9-1.1); PTT PATIENT 35.5 SECONDS (21.0-31.0)
[2017-09-29] MEDS ORDERED: ATROPINE SULFATE 0.1 MG/ML 5ML SYR IV PRN (07:30)
[2017-09-29] MEDS ORDERED: FENTANYL CITRATE INJ 50 MCG/1 ML 2 ML VIAL IV PRN (07:30)
[2017-09-29] MEDS ORDERED: LACTULOSE 200GM/700ML WTR ENEMA PR SCH ×2 (07:30→20:15)
[2017-09-29] MEDS ORDERED: ONDANSETRON INJ 2 MG/ML 2 ML VIAL IV PRN (07:30)
[2017-09-29] MEDS ORDERED: EpHEDrine SULFATE INJ 50 MG/ML AMP IV PRN (07:30)
[2017-09-29 07:31] LABS: ALBUMIN 2.3 gm/dl (3.4-5.0); CALCIUM 10.9 mg/dl (8.5-10.1); CREATININE 1.2 mg/dl (0.60-1.40); POTASSIUM 3.2 mmol/L (3.5-5.1); TOTAL PROTEIN 6.7 gm/dl (6.4-8.2)
[2017-09-29] MEDS: POTASSIUM CHLR 10 MEQ / WTR 10 MEQ in PREMIXED WATER 100 ML IV SCH ×4 (08:42→12:35)
[2017-09-29] MEDS ORDERED: AMPICILLIN/SULBACTAM CONSULT ACTIVE PRN (09:00)
[2017-09-29] MEDS: THIAMINE HCL 100 MG TAB PO SCH (09:00)
[2017-09-29] MEDS: MULTIVITAMIN TAB PO SCH (09:00)
[2017-09-29] MEDS: AMLODIPINE BESYLATE 5 MG TAB PO SCH (09:00)
[2017-09-29] MEDS: LACTULOSE SYRUP 200 GM, WATER, STERILE IRRIG 700 ML, BARCODE IDENTIFIER 1 EA PR SCH ×6 (09:28→21:50)
[2017-09-29] MEDS: MAGNESIUM SULFATE 1GM / D5W 1 GM in PREMIXED IN D5W 100 ML IV SCH ×2 (09:33→11:01)
[2017-09-29] MEDS: UNIT DOSE COMPOUND PO SCH ×3 (09:38→21:50)
--- NOTE | 2017-09-29 10:47 | Progress Note ---
Progress Note Date of Service Sep 29, 2017. Progress Note Pt was seen and evaluated, chart reviewed. Pt was aggitated last night, Haldol and Ativan given now pt is drowsy. He is answering questions appropriately. Denies abdominal pain, nausea, vomiting. No fever chills. Is NPO for EUS. Pt is resting comfortably, family and nursing at bedside Abd, soft non-distended, no TTP NPO for EUS w/ biopsy today
[2017-09-29] MEDS: CALCITONIN SALMON SQ SCH ×2 (11:18→23:51)
--- NOTE | 2017-09-29 14:02 | ECHOCARDIOGRAM REPORT ---
*NOTICE TO RECEIVING CONSTITUTION [employer]Y AGENCY This information is strictly Confidential and protected under [place] law. [place] law prohibits you from making any further disclosure of this information unless further disclosure is expressly permitted by the written consent of the person to whom it pertains or is authorized by law. A general authorization for the release of medical or other information is not sufficient for this purpose. Hospital accepts no responsibility if the information is made available to any other person, INCLUDING THE PATIENT. Interpretation Summary * Name: TRICIA KERR Study Date: 09/29/2017 09:54 AM BP: 115/74 mmHg * Patient Location: C.2T\S\S240\S\2 HR: 65 * : 1945 (M/d/yyyy) Gender: Male Height: 66 in * Age: 72 yrs Ethnicity: CA Weight: 195 lb * Ordering Physician: Cole Mendez * Referring Physician: Leeanna Jacques PA-C * Performed By: Lolly Jade RDCS * * Reason For Study: AFLUTTER * BSA: 2.0 m2 * -- Conclusions -- * Normal LV chamber size with mild concentric LVH. * Normal LV systolic function, EF 60-65%. * No segmental left ventricular wall motion abnormalities are noted. * Grade I diastolic dysfunction. * Aortic valve sclerosis mild, without significant aortic valvular stenosis. Procedure Details * A contrast injection of Definity was performed to improve assessment of LV function. * Contrast was injected into an intravenous site in the left arm. * One vial of Definity ultrasound contrast was diluted in normal saline to a total volume of 10 ml. A total of '1' ml of solution was administered during imaging. * Lot # [id number] of Definity utilized for procedure. * Expiration date 1 SEP 18. * The attending nurse who injected the contrast agent was AMILCAR CHEN. Left Ventricle * The left ventricle is normal in size. * There is mild concentric left ventricular hypertrophy. * Ejection Fraction = 60-65%. * Left ventricular systolic function is normal. * No segmental left ventricular wall motion abnormalities are noted. * The left ventricular wall motion is normal. Right Ventricle * The right ventricular cavity size is normal (basal dimension <4.2 cm in right ventricular apical 4-chamber view). * The right ventricular systolic function is normal as assessed by tricuspid annular plane systolic excursion (TAPSE) (normal >1.5 cm). Atria * The left atrial size is normal. * Right atrial size is normal. * No ASD detected; PFO is not assessed. Mitral Valve * The mitral valve is normal in structure and function. Tricuspid Valve * The tricuspid valve is normal in structure and function. Aortic Valve * The aortic valve is not well visualized. * Aortic valve sclerosis mild, without significant aortic valvular stenosis. * There is no significant aortic regurgitation. Pulmonic Valve * The pulmonary valve is not well seen, but the Doppler examination is normal without significant regurgitation or stenosis. Great Vessels * The aortic root is normal size. Pericardium/Pleural * There is no pericardial effusion. Left Ventricular Diastolic Function * Grade I diastolic dysfunction, (abnormal relaxation pattern). MMode 2D Measurements and Calculations IVSd 1.0 cm IVSs 1.9 cm LVIDd 5.0 cm LVIDs 3.2 cm LVPWd 1.1 cm LVPWs 1.7 cm IVS/LVPW 0.92 FS 35.4 % EDV(Teich) 116.0 ml ESV(Teich) 41.0 ml EF(Teich) 64.6 % EDV(cubed) 121.9 ml ESV(cubed) 32.8 ml EF(cubed) 73.1 % % IVS thick 83.1 % % LVPW thick 51.0 % LV mass(C)d 193.1 grams LV mass(C)dI 97.6 grams/m\S\2 LV mass(C)s 225.1 grams LV mass(C)sI 113.7 grams/m\S\2 SV(Teich) 74.9 ml SI(Teich) 37.9 ml/m\S\2 SV(cubed) 89.1 ml SI(cubed) 45.0 ml/m\S\2 Ao root diam 3.9 cm Ao root area 11.9 cm\S\2 LA dimension 3.7 cm LA/Ao 0.94 LVAd ap4 34.8 cm\S\2 LVLd ap4 9.2 cm EDV(MOD-sp4) 107.7 ml EDV(sp4-el) 111.6 ml LVAs ap4 18.7 cm\S\2 LVLs ap4 7.6 cm ESV(MOD-sp4) 38.5 ml ESV(sp4-el) 39.1 ml EF(MOD-sp4) 64.3 % EF(sp4-el) 64.9 % LVAd ap2 38.9 cm\S\2 LVLd ap2 9.3 cm EDV(MOD-sp2) 133.5 ml EDV(sp2-el) 137.9 ml LVAs ap2 22.1 cm\S\2 LVLs ap2 7.6 cm ESV(MOD-sp2) 54.1 ml ESV(sp2-el) 54.9 ml EF(MOD-sp2) 59.5 % EF(sp2-el) 60.2 % LVLd %diff 0.83 % EDV(MOD-bp) 121.9 ml LVLs %diff -0.49 % ESV(MOD-bp) 46.5 ml EF(MOD-bp) 61.9 % SV(MOD-sp4) 69.3 ml SI(MOD-sp4) 35.0 ml/m\S\2 SV(MOD-sp2) 79.4 ml SI(MOD-sp2) 40.1 ml/m\S\2 SV(MOD-bp) 75.4 ml SI(MOD-bp) 38.1 ml/m\S\2 SV(sp4-el) 72.5 ml SI(sp4-el) 36.6 ml/m\S\2 SV(sp2-el) 83.0 ml SI(sp2-el) 41.9 ml/m\S\2 Doppler Measurements and Calculations MV E max cynthia 75.5 cm/sec MV A max cynthia 89.1 cm/sec MV E/A 0.85 MV dec time 0.28 sec Ao V2 max 171.4 cm/sec Ao max PG 11.8 mmHg Ao max PG (full) 7.8 mmHg LV V1 max PG 3.9 mmHg LV V1 max 99.2 cm/sec TR max cynthia 239.7 cm/sec
--- NOTE | 2017-09-29 15:09 | DIAGNOSTIC IMAGING REPORT ---
ULTRASOUND-GUIDED LEFT LOBE HEPATIC FINE-NEEDLE ASPIRATION BIOPSY AND 18-GAUGE CORE BIOPSY CLINICAL HISTORY: Hepatic masses COMPARISON STUDY: CT scan dated 09/27/2017 FINDINGS: Informed consent was obtained from the patient's . Patient prepped in sterile fashion. The skin was anesthetized 1% lidocaine. Under ultrasound guidance, 2 25-gauge needle aspiration biopsy samples were obtained from the left lobe of the liver. Initial pathologic review indicated material positive for malignancy. The pathologist requested, an 18-gauge, 2 cm in length core sample was obtained through the left lobe lesion. IMPRESSION: 1. Successful ultrasound-guided fine-needle aspiration biopsy of a left lobe hepatic mass 2. Successful 18-gauge core biopsy of a left lobe hepatic mass Electronically signed by: Austin Messer M.D. 09/29/2017 3:07 PM Dictated Date/Time: 09/29/2017 3:05 PM
[2017-09-29] MEDS ORDERED: SODIUM CHLORIDE 0.9% 1000ML 1,000 ML IV SCH (16:30)
[2017-09-29] MEDS ORDERED: NURSING VERBAL MED ORDER ONE ×2 (16:30→18:30)
[2017-09-29] MEDS: LORAZEPAM 2 MG/ML 1 ML VIAL IV PRN ×2 (17:33→18:18)
--- NOTE | 2017-09-29 18:48 | Progress Note ---
Internal Med Progress Note Date of Service: Sep 29, 2017. Provider Documentation: SUBJECTIVE: PATIENT IS DROWSY MOSTLY FROM [employer]IV[employer] HEMODYNAMICS STABLE' AFEBRILE S/P EUS TODAY FAMILY AYS HE USED TO DRINK TWO BEERS AND 1-2 GLASSES OF HARD LIQUOR EVERY DAY BUT SINCE LAST MONTH HE DRANK ONLY 6 BEERS AND DRANK HARD LIQUOR WHEN HE HAD BEER OBJECTIVE: Vital Signs-as noted below Exam: General-drowsy Neck-no neck masses Lungs-cta b/l no wheezing no crackles Heart-s1 and s2 heard regular no murmurs Abdomen-soft bowel sounds present non tender no distension Extremities-no edema no erythema Neuro-drowsy Lab data as noted below. ASSESSMENT & PLAN: This is a 72yo M with a PMH of HTN, HLD who presents with generalized malaise and unintentional weight loss x 2 months found to be hypercalcemic at 15 with liver abnormalities on abd/pelvis CT concerning for malignancy. Hypercalcemia: presented with calcium 15 started on ns@200ml/hr zometa iv given by heme/onco Concern for malignancy of liver, cholangiocarcinoma with hepatic spread bone scan negative for skeletal metastasis Heme/onco on board and appreciate inputs ca 10.9 today cut back on fluids to d5ns@125ml/hr f/u labs in am Intrahepatic ductal dilatation, liver lesions on ct scan and US s/p EUS and biopsy by GI today await biopsy results heme/onco on board. Encephalopathy agitation alcoholic delirium? hx of alcoholism? metabolic from hypercalcemia , sepsis? rule out cva/mets on alcohol withdrawal protocol f/u mri head Fever thickened gall bladder and gall stones on US follow cx on Unasyn A flutter on initial ekg repeat ekg NSR echo unremarkable monitor in tele HTN: Recently discontinued lisinopril, hctz due to hypotension On amlodipine will monitor Reticular opacities of lung bases: -On CXR suspected underlying interstitial lung disease on ct scan needs f/u lung nodules DVT Ppx: SCDs for now. DISPOSITION monitor in tele to be determined Vital Signs: Date Time Temp Pulse Resp B/P (MAP) Pulse Ox O2 Delivery O2 Flow Rate FiO2 09/29/17 16:02 Room Air 09/29/17 15:26 36.1 57 22 134/78 (96) 97 Room Air 09/29/17 12:30 Room Air 09/29/17 11:33 37.0 66 20 109/63 (78) 95 09/29/17 08:30 Room Air 09/29/17 07:48 36.9 65 18 115/74 (88) 97 09/29/17 06:10 36.8 68 24 129/76 (93) 93 Room Air 09/29/17 03:55 36.9 69 24 124/83 (97) 93 Room Air 09/29/17 03:50 Room Air 09/29/17 03:02 36.8 65 24 129/70 (89) 92 Room Air 09/29/17 02:00 36.5 69 24 136/87 (103) 91 Room Air 09/29/17 01:00 36.7 67 22 154/77 (102) 93 Room Air 09/29/17 00:11 36.7 68 28 145/75 (98) 95 Room Air 09/28/17 23:35 Room Air 09/28/17 22:53 37.3 80 26 155/74 (101) 93 Room Air 09/28/17 21:52 36.4 76 22 161/81 (107) 93 Room Air 09/28/17 21:30 37.6 76 20 147/76 (99) 93 Room Air 09/28/17 21:12 37.1 76 20 154/74 (100) 94 Room Air 09/28/17 20:45 37.6 83 22 153/77 (102) 93 Room Air 09/28/17 20:30 Room Air 09/28/17 19:37 36.7 72 18 157/73 (101) 94 Room Air Lab Results: Results Past 24 Hours Test 09/28/17 20:50 09/28/17 22:54 09/29/17 02:30 09/29/17 06:39 Range/Units Sodium Level 137 136-145 mmol/L Potassium Level 3.8 3.5-5.1 mmol/L Chloride Level 106 98-107 mmol/L Carbon Dioxide Level 24 21-32 mmol/L Anion Gap 7.0 3-11 mmol/L Blood Urea Nitrogen 18 7-18 mg/dl Creatinine 1.37 0.60-1.40 mg/dl Est Creatinine Clear Calc Drug Dose 50.8 ml/min Estimated GFR () 59.3 Estimated GFR (Non- 51.2 BUN/Creatinine Ratio 12.8 10-20 Random Glucose 103 70-99 mg/dl Lactic Acid Level 1.8 0.4-2.0 mmol/L Calcium Level 12.5 8.5-10.1 mg/dl Procalcitonin 0.37 0-0.5 ng/ml Ammonia 33.7 50.7 11-32 umol/L Lipase 88 73-393 U/L Urine Opiates Screen NEG NEG Urine Methadone, Qualitative NEG NEG Urine Barbiturates NEG NEG Urine Phencyclidine (PCP) Level NEG NEG Ur Amphetamine/Methamphetamine NEG NEG MDMA (Ecstasy) Screen NEG NEG Urine Benzodiazepines Screen NEG NEG Urine Cocaine Metabolite NEG NEG Urine Marijuana (THC) NEG NEG Prothrombin Time 16.2 9.0-12.0 SECONDS Prothromb Time International Ratio 1.6 0.9-1.1 Activated Partial Thromboplast Time 35.5 21.0-31.0 SECONDS Partial Thromboplastin Ratio 1.4 Test 09/29/17 06:40 Range/Units White Blood Count 8.30 4.8-10.8 K/uL Red Blood Count 3.98 4.7-6.1 M/uL Hemoglobin 12.8 14.0-18.0 g/dL Hematocrit 36.9 42-52 % Mean Corpuscular Volume 92.7 80-100 fL Mean Corpuscular Hemoglobin 32.2 25-34 pg Mean Corpuscular Hemoglobin Concent 34.7 32-36 g/dl Platelet Count 136 130-400 K/uL Mean Platelet Volume 10.6 7.4-10.4 fL Neutrophils (%) (Auto) 81.3 % Lymphocytes (%) (Auto) 8.0 % Monocytes (%) (Auto) 10.2 % Eosinophils (%) (Auto) 0.1 % Basophils (%) (Auto) 0.2 % Neutrophils # (Auto) 6.74 1.4-6.5 K/uL Lymphocytes # (Auto) 0.66 1.2-3.4 K/uL Monocytes # (Auto) 0.85 0.11-0.59 K/uL Eosinophils # (Auto) 0.01 0-0.5 K/uL Basophils # (Auto) 0.02 0-0.2 K/uL RDW Standard Deviation 46.4 36.4-46.3 fL RDW Coefficient of Variation 13.6 11.5-14.5 % Immature Granulocyte % (Auto) 0.2 % Immature Granulocyte # (Auto) 0.02 0.00-0.02 K/uL Sodium Level 139 136-145 mmol/L Potassium Level 3.2 3.5-5.1 mmol/L Chloride Level 108 98-107 mmol/L Carbon Dioxide Level 23 21-32 mmol/L Anion Gap 8.0 3-11 mmol/L Blood Urea Nitrogen 16 7-18 mg/dl Creatinine 1.20 0.60-1.40 mg/dl Est Creatinine Clear Calc Drug Dose 57.7 ml/min Estimated GFR () 69.6 Estimated GFR (Non- 60.1 BUN/Creatinine Ratio 12.9 10-20 Random Glucose 103 70-99 mg/dl Calcium Level 10.9 8.5-10.1 mg/dl Magnesium Level 1.4 1.8-2.4 mg/dl Total Bilirubin 0.8 0.2-1 mg/dl Direct Bilirubin 0.4 0-0.2 mg/dl Aspartate Amino Transf (AST/SGOT) 66 15-37 U/L Alanine Aminotransferase (ALT/SGPT) 36 12-78 U/L Alkaline Phosphatase 177 45-117 U/L Total Protein 6.7 6.4-8.2 gm/dl Albumin 2.3 3.4-5.0 gm/dl Microbiology Results 09/28/17 Blood Culture, Received Pending 09/28/17 Blood Culture, Received Pending
--- NOTE | 2017-09-29 19:22 | DIAGNOSTIC IMAGING REPORT ---
BRAIN COMBO CLINICAL HISTORY: 72 years-old Male presenting with confusion. cva? mets?, High calcium, weight loss, fatigue, history of liver cancer. TECHNIQUE: Multisequence, multiplanar MR imaging of the brain was performed before and after the administration of intravenous contrast. IV contrast: 8.5 mL of Gadavist. COMPARISON: Noncontrast CT head performed earlier the same day. FINDINGS: Proportional ventricular and sulcal prominence, which is advanced for age-related parenchymal volume loss. Periventricular and subcortical white matter T2/FLAIR hyperintensity, nonspecific but likely indicative of chronic small vessel ischemic change. No mass effect or midline shift. No restricted diffusion to suggest acute ischemia. No hemorrhage. No extra-axial fluid collection. T2 skull base flow voids preserved. No abnormal parenchymal enhancement. Bone marrow signal intensity within the calvarium within normal limits. IMPRESSION: 1. No acute intracranial pathology. No abnormal enhancement. 2. The degree of diffuse cerebral atrophy is greater than expected for age related change. This may be related to the presence of advanced chronic small vessel ischemic change. Electronically signed by: Kieran Buenrostro M.D. 09/29/2017 7:20 PM Dictated Date/Time: 09/29/2017 7:14 PM
[2017-09-29] MEDS: D5W AND NSS 1,000 ML IV SCH (19:36)
[2017-09-29] MEDS: ACETAMINOPHEN IV 650 MG in EMPTY BAG 0 ML IV PRN (20:43)
[2017-09-29] MEDS: GABAPENTIN 600MG Q8H DOSE PO SCH (22:00)
[2017-09-30] MEDS: AMPICILLIN/SULBACTAM SOD INJ 3,000 MG in SODIUM CHLORIDE 0.9% 100ML 100 ML IV SCH ×4 (00:05→17:43)
[2017-09-30 04:21] VITALS: BP 130/74; PULSE 68; TEMP 37; O2SAT 97
[2017-09-30] MEDS: UNIT DOSE COMPOUND PO SCH (04:22)
[2017-09-30] MEDS: D5W AND NSS 1,000 ML IV SCH ×3 (04:22→21:53)
[2017-09-30] MEDS: LACTULOSE SYRUP 200 GM, WATER, STERILE IRRIG 700 ML, BARCODE IDENTIFIER 1 EA PR SCH ×2 (04:22)
[2017-09-30] MEDS: GABAPENTIN 600MG Q8H DOSE PO SCH ×2 (06:04→13:23)
[2017-09-30 06:42] LABS: BASO % 0.2 %; BASO ABS # 0.02 K/uL (0-0.2); EOS % 1.3 %; EOS ABS # 0.15 K/uL (0-0.5); HEMATOCRIT 39.3 % (42-52); HEMOGLOBIN 13.3 g/dL (14.0-18.0); IG# 0.05 K/uL (0.00-0.02); LYMPH % 9.7 %; LYMPH ABS # 1.14 K/uL (1.2-3.4); MEAN CELL VOLUME 93.3 fL (80-100); MEAN CORPUSCULAR HEMOGLOBIN 31.6 pg (25-34); MEAN CORPUSCULAR HGB CONC 33.8 g/dl (32-36); MEAN PLATELET VOLUME 10.2 fL (7.4-10.4); MONO % 10.1 %; MONO ABS # 1.19 K/uL (0.11-0.59); NEUT % 78.3 %; NEUT ABS # 9.22 K/uL (1.4-6.5); PLATELET COUNT 140 K/uL (130-400); RED CELL DISTRIBUTION WIDTH CV 13.8 % (11.5-14.5); WHITE BLOOD COUNT 11.77 K/uL (4.8-10.8)
[2017-09-30 07:14] LABS: CREATININE 1.16 mg/dl (0.60-1.40); POTASSIUM 3.3 mmol/L (3.5-5.1)
[2017-09-30] MEDS ORDERED: UNIT DOSE COMPOUND PO SCH (08:00)
[2017-09-30 08:11] VITALS: BP 148/68; PULSE 84; TEMP 37.1; O2SAT 96
[2017-09-30] MEDS: POTASSIUM CHLR 10 MEQ / WTR 10 MEQ in PREMIXED WATER 100 ML IV SCH ×4 (08:16→11:27)
[2017-09-30] MEDS: THIAMINE HCL 100 MG TAB PO SCH (09:00)
[2017-09-30] MEDS: MULTIVITAMIN TAB PO SCH (09:00)
[2017-09-30] MEDS: AMLODIPINE BESYLATE 5 MG TAB PO SCH (09:24)
[2017-09-30 09:40] VITALS: Ht 167.6 cm; Wt 88.7 kg
[2017-09-30] MEDS ORDERED: LACTULOSE SYRUP 20 GM/30 ML UDC PO STA (10:50)
[2017-09-30] MEDS: MULTIVITAMINS W/MINERALS 15ML UDP PO SCH (11:26)
[2017-09-30] MEDS: THIAMINE HCL INJ 100 MG in SYRINGE 9 ML IV SCH (12:15)
[2017-09-30] MEDS: FoLIC ACID INJ 1 MG in SYRINGE 9.8 ML IV SCH (12:15)
[2017-09-30 12:16] VITALS: BP 151/66; PULSE 88; TEMP 37; O2SAT 97
[2017-09-30] MEDS: CALCITONIN SALMON SQ SCH (13:16)
[2017-09-30 15:20] VITALS: BP 124/77; PULSE 65; TEMP 36.5; O2SAT 97
[2017-09-30] MEDS: LORAZEPAM 2 MG/ML 1 ML VIAL IV PRN ×2 (18:15→21:33)
[2017-09-30 19:16] VITALS: BP 138/84; PULSE 72; TEMP 36.6; O2SAT 97
--- NOTE | 2017-09-30 19:16 | Progress Note ---
Internal Med Progress Note Date of Service: Sep 30, 2017. Provider Documentation: SUBJECTIVE: Patinet drowsy but arousable denies chest opain or sob no headaches no cough afebrile wants to sleep later was more awake and tolerated clears later in day was again getting agitated and was asking for alcohol OBJECTIVE: Vital Signs-as noted below Exam: General-drowsy Neck-no neck masses Lungs-cta b/l no wheezing no crackles Heart-s1 and s2 heard regular no murmurs Abdomen-soft bowel sounds present non tender no distension Extremities-no edema no erythema Neuro-drowsy but arousable moves extremities Lab data as noted below. ASSESSMENT & PLAN: This is a 72yo M with a PMH of HTN, HLD who presents with generalized malaise and unintentional weight loss x 2 months found to be hypercalcemic at 15 with liver abnormalities on abd/pelvis CT concerning for malignancy. Hypercalcemia: presented with calcium 15 started on ns@200ml/hr zometa iv given by heme/onco Concern for malignancy of liver, cholangiocarcinoma with hepatic spread bone scan negative for skeletal metastasis Heme/onco on board and appreciate inputs ca 10 today cut back on fluids to d5ns@75ml/hr f/u labs in am Intrahepatic ductal dilatation, liver lesions on ct scan and US s/p EUS and biopsy by GI today await biopsy results heme/onco on board. Encephalopathy agitation alcoholic delirium? hx of alcoholism? metabolic from hypercalcemia , sepsis? rule out cva/mets on alcohol withdrawal protocol mri head unremarkable to continue alcohol withdrawal protocol Fever thickened gall bladder and gall stones on US follow cx on Unasyn no fevers currently A flutter on initial ekg repeat ekg NSR echo unremarkable monitor in tele HTN: Recently discontinued lisinopril, hctz due to hypotension On amlodipine will monitor Reticular opacities of lung bases: -On CXR suspected underlying interstitial lung disease on ct scan needs f/u lung nodules DVT Ppx: SCDs for now. DISPOSITION monitor in tele to be determined Vital Signs: Date Time Temp Pulse Resp B/P (MAP) Pulse Ox O2 Delivery O2 Flow Rate FiO2 09/30/17 16:03 Nasal Cannula 2.0 09/30/17 15:20 36.5 65 18 124/77 (93) 97 Nasal Cannula 2.0 09/30/17 12:16 37.0 88 18 151/66 (94) 97 09/30/17 12:03 Nasal Cannula 2.0 09/30/17 08:11 37.1 84 18 148/68 (94) 96 09/30/17 08:05 Nasal Cannula 2.0 09/30/17 04:21 37.0 68 26 130/74 (92) 97 Nasal Cannula 2.5 09/30/17 04:00 Nasal Cannula 2.0 09/29/17 23:59 Nasal Cannula 2.0 09/29/17 23:52 36.7 63 16 121/70 (87) 91 Room Air 09/29/17 20:00 Nasal Cannula 2.0 09/29/17 19:14 38.1 72 20 115/71 (86) 90 Room Air Lab Results: Results Past 24 Hours Test 09/29/17 20:10 09/30/17 06:31 09/30/17 07:23 09/30/17 11:15 Range/Units Bedside Glucose 103 105 106 70-99 mg/dl White Blood Count 11.77 4.8-10.8 K/uL Red Blood Count 4.21 4.7-6.1 M/uL Hemoglobin 13.3 14.0-18.0 g/dL Hematocrit 39.3 42-52 % Mean Corpuscular Volume 93.3 80-100 fL Mean Corpuscular Hemoglobin 31.6 25-34 pg Mean Corpuscular Hemoglobin Concent 33.8 32-36 g/dl Platelet Count 140 130-400 K/uL Mean Platelet Volume 10.2 7.4-10.4 fL Neutrophils (%) (Auto) 78.3 % Lymphocytes (%) (Auto) 9.7 % Monocytes (%) (Auto) 10.1 % Eosinophils (%) (Auto) 1.3 % Basophils (%) (Auto) 0.2 % Neutrophils # (Auto) 9.22 1.4-6.5 K/uL Lymphocytes # (Auto) 1.14 1.2-3.4 K/uL Monocytes # (Auto) 1.19 0.11-0.59 K/uL Eosinophils # (Auto) 0.15 0-0.5 K/uL Basophils # (Auto) 0.02 0-0.2 K/uL RDW Standard Deviation 47.0 36.4-46.3 fL RDW Coefficient of Variation 13.8 11.5-14.5 % Immature Granulocyte % (Auto) 0.4 % Immature Granulocyte # (Auto) 0.05 0.00-0.02 K/uL Sodium Level 139 136-145 mmol/L Potassium Level 3.3 3.5-5.1 mmol/L Chloride Level 109 98-107 mmol/L Carbon Dioxide Level 22 21-32 mmol/L Anion Gap 8.0 3-11 mmol/L Blood Urea Nitrogen 17 7-18 mg/dl Creatinine 1.16 0.60-1.40 mg/dl Est Creatinine Clear Calc Drug Dose 60.0 ml/min Estimated GFR () 72.5 Estimated GFR (Non- 62.6 BUN/Creatinine Ratio 14.8 10-20 Random Glucose 109 70-99 mg/dl Calcium Level 10.0 8.5-10.1 mg/dl Magnesium Level 2.1 1.8-2.4 mg/dl Ammonia 56.0 11-32 umol/L
[2017-09-30] MEDS: LACTULOSE SYRUP 20 GM/30 ML UDC PO SCH (22:32)
[2017-09-30 23:10] VITALS: BP 145/80; PULSE 84; TEMP 37.3; O2SAT 94
[2017-10-01] MEDS: AMPICILLIN/SULBACTAM SOD INJ 3,000 MG in SODIUM CHLORIDE 0.9% 100ML 100 ML IV SCH ×4 (00:08→17:36)
[2017-10-01 04:00] VITALS: BP 135/81; PULSE 73; TEMP 37.7; O2SAT 97
[2017-10-01 07:21] VITALS: BP 113/64; PULSE 73; TEMP 36.5; O2SAT 97
[2017-10-01] MEDS: MULTIVITAMINS W/MINERALS 15ML UDP PO SCH ×2 (07:45→07:48)
[2017-10-01] MEDS: LACTULOSE SYRUP 20 GM/30 ML UDC PO SCH (07:45)
[2017-10-01] MEDS: AMLODIPINE BESYLATE 5 MG TAB PO SCH (07:46)
[2017-10-01] MEDS: LORAZEPAM 2 MG/ML 1 ML VIAL IV PRN (07:47)
[2017-10-01 07:56] LABS: BASO % 0.3 %; BASO ABS # 0.04 K/uL (0-0.2); EOS % 1.3 %; EOS ABS # 0.15 K/uL (0-0.5); HEMATOCRIT 39.7 % (42-52); HEMOGLOBIN 13.6 g/dL (14.0-18.0); IG# 0.04 K/uL (0.00-0.02); LYMPH % 12.8 %; LYMPH ABS # 1.52 K/uL (1.2-3.4); MEAN CELL VOLUME 93.9 fL (80-100); MEAN CORPUSCULAR HEMOGLOBIN 32.2 pg (25-34); MEAN CORPUSCULAR HGB CONC 34.3 g/dl (32-36); MEAN PLATELET VOLUME 10.4 fL (7.4-10.4); MONO % 10.3 %; MONO ABS # 1.23 K/uL (0.11-0.59); NEUT ABS # 8.92 K/uL (1.4-6.5); PLATELET COUNT 158 K/uL (130-400); RED CELL DISTRIBUTION WIDTH CV 13.7 % (11.5-14.5); RED CELL DISTRIBUTION WIDTH SD 47.1 fL (36.4-46.3)
[2017-10-01 08:43] LABS: CALCIUM 9.1 mg/dl (8.5-10.1); CREATININE 1.02 mg/dl (0.60-1.40)
[2017-10-01] MEDS: POTASSIUM CHLORIDE 20 MEQ TABCR PO STA ×2 (08:54→09:52)
[2017-10-01] MEDS ORDERED: MAGNESIUM SULFATE 1GM / D5W 1 GM in PREMIXED IN D5W 100 ML IV STA (09:05)
[2017-10-01] MEDS: POTASSIUM CHLR 10 MEQ / WTR 10 MEQ in PREMIXED WATER 100 ML IV SCH ×2 (09:52→11:00)
[2017-10-01] MEDS: THIAMINE HCL INJ 100 MG in SYRINGE 9 ML IV SCH (09:53)
[2017-10-01] MEDS: FoLIC ACID INJ 1 MG in SYRINGE 9.8 ML IV SCH (09:53)
[2017-10-01] MEDS: ONDANSETRON INJ 2 MG/ML 2 ML VIAL IV PRN ×2 (10:10→17:09)
[2017-10-01] MEDS ORDERED: POTASSIUM PHOS 3 MMOL/1 ML INFUSION IV STA (10:49)
[2017-10-01] MEDS: ACETAMINOPHEN IV 650 MG in EMPTY BAG 0 ML IV PRN (10:59)
[2017-10-01] MEDS: RIFAXIMIN TAB 550 MG TAB PO SCH ×2 (11:00→22:41)
[2017-10-01] MEDS ORDERED: POTASSIUM PHOSPHATE INJ 24 MMOL in SODIUM CHLORIDE 0.9% 500ML 500 ML IV ONE (11:15)
[2017-10-01 11:39] VITALS: BP 116/78; PULSE 65; TEMP 36.7; O2SAT 96
[2017-10-01] MEDS: GABAPENTIN 600MG Q12H DOSE PO SCH ×2 (12:24)
[2017-10-01] MEDS: D5NSS + 20MEQ KCL 1,000 ML IV SCH (12:24)
[2017-10-01] MEDS ORDERED: LACTULOSE 200GM/700ML WTR ENEMA PR SCH (13:15)
[2017-10-01] MEDS ORDERED: LACTULOSE SYRUP 30 GM/45 ML UDP PO SCH (14:00)
[2017-10-01] MEDS ORDERED: UNIT DOSE COMPOUND PO SCH (15:30)
[2017-10-01] MEDS ORDERED: LACTULOSE SYRUP 200 GM, WATER, STERILE IRRIG 700 ML, BARCODE IDENTIFIER 1 EA PR SCH ×2 (15:30)
[2017-10-01 15:31] VITALS: BP 132/84; PULSE 59; TEMP 36.5; O2SAT 92
[2017-10-01] MEDS ORDERED: MICONAZOLE NITRATE POWDER 43 GM EXT PRN (19:00)
[2017-10-01] MEDS ORDERED: NURSING VERBAL MED ORDER ONE (19:00)
--- NOTE | 2017-10-01 19:05 | Progress Note ---
Internal Med Progress Note Date of Service: Oct 01, 2017. Provider Documentation: SUBJECTIVE: was agitated in am and received Ativan drowsy nauseous afebrile hemodynamics stable OBJECTIVE: Vital Signs-as noted below Exam: General-drowsy Neck-no neck masses Lungs-cta b/l no wheezing no crackles Heart-s1 and s2 heard regular no murmurs Abdomen-soft bowel sounds present non tender no distension Extremities-no edema no erythema Neuro-drowsy but arousable moves extremities Lab data as noted below. ASSESSMENT & PLAN: This is a 72yo M with a PMH of HTN, HLD who presents with generalized malaise and unintentional weight loss x 2 months found to be hypercalcemic at 15 with liver abnormalities on abd/pelvis CT concerning for malignancy. Hypercalcemia: presented with calcium 15 was started on ns@200ml/hr Zometa iv one dose given by heme/onco Concern for malignancy of liver, cholangiocarcinoma with hepatic spread bone scan negative for skeletal metastasis Heme/onco on board and appreciate inputs ca 9.1today cut back on fluids to d5ns@75ml/hr will f/u labs in am Intrahepatic ductal dilatation, liver lesions on ct scan and US s/p EUS and biopsy by GI on monday await biopsy results heme/onco on board. Encephalopathy agitation alcoholic delirium? hx of alcoholism? hepatic encephalopathy-ammonia 86 metabolic from hypercalcemia , rule out cva/mets on alcohol withdrawal protocol mri head unremarkable to continue alcohol withdrawal protocol Elevated ammonia levels on lactulose GA will f/u levels Fever thickened gall bladder and gall stones on US follow cx on Unasyn no fevers currently will monitor A flutter on initial ekg repeat ekg NSR echo unremarkable monitor in tele HTN: Recently discontinued lisinopril, hctz due to hypotension On amlodipine will monitor Reticular opacities of lung bases: -On CXR suspected underlying interstitial lung disease on ct scan needs f/u lung nodules DVT Ppx: SCDs for now. DISPOSITION monitor in tele to be determined Vital Signs: Date Time Temp Pulse Resp B/P (MAP) Pulse Ox O2 Delivery O2 Flow Rate FiO2 10/01/17 16:05 Nasal Cannula 2.0 10/01/17 15:31 36.5 59 18 132/84 (100) 92 Room Air 10/01/17 12:03 Nasal Cannula 2.0 10/01/17 11:39 36.7 65 17 116/78 (91) 96 Nasal Cannula 2.0 10/01/17 08:05 Nasal Cannula 2.0 10/01/17 07:21 36.5 73 16 113/64 (80) 97 Nasal Cannula 3.0 10/01/17 04:00 Nasal Cannula 2.0 10/01/17 04:00 37.7 73 22 135/81 (99) 97 Nasal Cannula 2.0 10/01/17 00:02 Nasal Cannula 2.0 09/30/17 23:10 37.3 84 145/80 (101) 94 Nasal Cannula 2.0 09/30/17 20:00 Nasal Cannula 2.0 09/30/17 19:16 36.6 72 20 138/84 (102) 97 Nasal Cannula 2.0 Lab Results: Results Past 24 Hours Test 10/01/17 07:40 10/01/17 11:09 10/01/17 12:38 10/01/17 16:59 Range/Units White Blood Count 11.90 4.8-10.8 K/uL Red Blood Count 4.23 4.7-6.1 M/uL Hemoglobin 13.6 14.0-18.0 g/dL Hematocrit 39.7 42-52 % Mean Corpuscular Volume 93.9 80-100 fL Mean Corpuscular Hemoglobin 32.2 25-34 pg Mean Corpuscular Hemoglobin Concent 34.3 32-36 g/dl Platelet Count 158 130-400 K/uL Mean Platelet Volume 10.4 7.4-10.4 fL Neutrophils (%) (Auto) 75.0 % Lymphocytes (%) (Auto) 12.8 % Monocytes (%) (Auto) 10.3 % Eosinophils (%) (Auto) 1.3 % Basophils (%) (Auto) 0.3 % Neutrophils # (Auto) 8.92 1.4-6.5 K/uL Lymphocytes # (Auto) 1.52 1.2-3.4 K/uL Monocytes # (Auto) 1.23 0.11-0.59 K/uL Eosinophils # (Auto) 0.15 0-0.5 K/uL Basophils # (Auto) 0.04 0-0.2 K/uL RDW Standard Deviation 47.1 36.4-46.3 fL RDW Coefficient of Variation 13.7 11.5-14.5 % Immature Granulocyte % (Auto) 0.3 % Immature Granulocyte # (Auto) 0.04 0.00-0.02 K/uL Sodium Level 140 136-145 mmol/L Potassium Level 3.0 3.5-5.1 mmol/L Chloride Level 105 98-107 mmol/L Carbon Dioxide Level 25 21-32 mmol/L Anion Gap 10.0 3-11 mmol/L Blood Urea Nitrogen 11 7-18 mg/dl Creatinine 1.02 0.60-1.40 mg/dl Est Creatinine Clear Calc Drug Dose 68.2 ml/min Estimated GFR () 84.7 Estimated GFR (Non- 73.1 BUN/Creatinine Ratio 11.2 10-20 Random Glucose 83 70-99 mg/dl Calcium Level 9.1 8.5-10.1 mg/dl Phosphorus Level 1.5 2.5-4.9 mg/dl Magnesium Level 1.4 1.8-2.4 mg/dl Ammonia 87.9 48.6 11-32 umol/L Lactic Acid Level 1.6 0.4-2.0 mmol/L Arterial Blood pH 7.43 7.35-7.45 Arterial Blood Partial Pressure CO2 38 35-46 mmHg Arterial Blood Partial Pressure O2 79 80-95 mm/Hg Arterial Blood HCO3 25 19-24 mmol/L Arterial Blood Oxygen Saturation 96.0 90-95 % Arterial Blood Base Excess 0.7 -9-1.8 mEq/L Arterial Blood Gas Delivery 2L Neal Test POS POS
[2017-10-01 19:16] VITALS: BP 137/77; PULSE 82; TEMP 36.6; O2SAT 98
[2017-10-01] MEDS: UNIT DOSE COMPOUND PO SCH (22:00)
[2017-10-01] MEDS: LACTULOSE SYRUP 200 GM, WATER, STERILE IRRIG 700 ML, BARCODE IDENTIFIER 1 EA PR SCH ×2 (22:44)
[2017-10-01 23:18] VITALS: BP 136/78; PULSE 80; TEMP 37.6; O2SAT 92
[2017-10-02] MEDS: AMPICILLIN/SULBACTAM SOD INJ 3,000 MG in SODIUM CHLORIDE 0.9% 100ML 100 ML IV SCH ×4 (00:03→17:35)
[2017-10-02] MEDS: ACETAMINOPHEN IV 650 MG in EMPTY BAG 0 ML IV PRN (00:05)
[2017-10-02 02:31] VITALS: BP 126/86; PULSE 87; TEMP 36.9; O2SAT 91
[2017-10-02] MEDS: LORAZEPAM 2 MG/ML 1 ML VIAL IV PRN ×4 (02:41→20:24)
[2017-10-02] MEDS: D5NSS + 20MEQ KCL 1,000 ML IV SCH ×2 (02:41→14:10)
[2017-10-02] MEDS: UNIT DOSE COMPOUND PO SCH ×3 (06:00→21:00)
[2017-10-02] MEDS: LACTULOSE SYRUP 200 GM, WATER, STERILE IRRIG 700 ML, BARCODE IDENTIFIER 1 EA PR SCH ×6 (06:47→21:55)
[2017-10-02 07:17] VITALS: BP 134/77; PULSE 73; TEMP 36.9; O2SAT 93
[2017-10-02 07:24] LABS: BASO % 0.3 %; BASO ABS # 0.03 K/uL (0-0.2); EOS % 1.9 %; EOS ABS # 0.19 K/uL (0-0.5); HEMATOCRIT 37.9 % (42-52); HEMOGLOBIN 12.9 g/dL (14.0-18.0); IG# 0.03 K/uL (0.00-0.02); LYMPH % 14.2 %; LYMPH ABS # 1.39 K/uL (1.2-3.4); MEAN CELL VOLUME 93.3 fL (80-100); MEAN CORPUSCULAR HEMOGLOBIN 31.8 pg (25-34); MEAN PLATELET VOLUME 10.4 fL (7.4-10.4); MONO % 10.7 %; MONO ABS # 1.05 K/uL (0.11-0.59); NEUT % 72.6 %; NEUT ABS # 7.11 K/uL (1.4-6.5); PLATELET COUNT 152 K/uL (130-400); RED CELL DISTRIBUTION WIDTH CV 13.7 % (11.5-14.5)
[2017-10-02 07:51] LABS: ALBUMIN 2.2 gm/dl (3.4-5.0); CREATININE 0.98 mg/dl (0.60-1.40); POTASSIUM 3.1 mmol/L (3.5-5.1)
[2017-10-02 07:54] LABS: PHOSPHORUS 1.8 mg/dl (2.5-4.9); TOTAL PROTEIN 6.9 gm/dl (6.4-8.2)
[2017-10-02] MEDS ORDERED: POTASSIUM PHOS 3 MMOL/1 ML INFUSION IV STA (08:19)
[2017-10-02] MEDS ORDERED: POTASSIUM PHOSPHATE INJ 24 MMOL in SODIUM CHLORIDE 0.9% 500ML 500 ML IV ONE (08:45)
--- NOTE | 2017-10-02 08:46 | Gastroenterology Progress Note ---
Progress Note Date of Service: Oct 02, 2017 Subjective Pt evaluation today including: conversation w/ patient, conversation w/ family , physical exam, chart review, lab review Pt is seen and evaluated, chart reviewed. He actually did not undergo EUS on Monday as he had lunch. Discussed w/ radiology and he underwent US guided biopsy. Over the weekend, it was noted that pt had change in mental status, fever of unknown etiology. Blood cultures preliminary but no growth to date. He is vague on ROS, answering w/ yes and no. Denies fever, chills, CP, SOB, abdominal pain. When I ask him if he has pain, he says yes, but is unable to tell me where this pain is. ETOH: 3-4 beers daily x 20 years Tobacco: past use EGD: years ago, per pt HH and H.Pylori Colonoscopy: years ago, per pt WNL US Guided Bx 09/29/17: results pending Liver US 09/27/17: Technically limited study Diffusely heterogeneous hepatic echotexture. The discrete masses identified on the CT scan are difficult to discern ultrasonographically Cholelithiasis and gallbladder wall thickening. 5 mm [address] bile duct Ct Chest 09/27/17: Minimally enlarged mediastinal lymph nodes 5 mm right middle lobe pulmonary nodule, and 6 mm lingular pulmonary noduleSuspected underlying interstitial lung disease with subpleural reticulation. Multiple hepatic masses suspicious for metastatic disease CT ABD/Pelvis 09/27/17: Intrahepatic biliary ductal dilatation limited to the left hepatic lobe raises concern for an obstructing mass at the level of the left aspect of the liver hilum. Given the presence of multiple suspicious lesions throughout the right hepatic lobe, which are concerning for metastases, the primary differential consideration is cholangiocarcinoma with hepatic spread. Differential considerations include an extrahepatic primary with diffuse livermetastases and secondary obstruction of the left hepatic ducts due to metastaticlesions. However, no extrahepatic malignancy is evident on this noncontrast CT.Ultrasound of the liver is recommended for potential fine-needle biopsy fortissue sampling.Upper abdominal lymphadenopathy. Extensive reticular opacities at the lung bases with subtle bronchiectasis could suggest underlying fibrotic lung disease such as nonspecific interstitiapneumonitis, chronic aspiration, or smoking related lung injury. The report will be called/faxed according to standard departmental protocol. Family history of GI malignancy: none Family history of liver disease: none Review of Systems Constitutional: No fever, No chills Respiratory: No cough, No shortness of breath Cardiac: No chest pain, No edema Abdomen: No pain, No nausea, No vomiting, No diarrhea, No constipation, No GI bleeding Medications Current Inpatient Medications Medications (Trade) Dose Ordered Sig/Van Route Start Time Stop Time Status Last Admin Dose Admin Ondansetron HCl (Zofran Inj) 4 mg Q6H PRN IV 09/27/17 13:45 10/27/17 13:44 10/01/17 17:09 4 MG Polyethylene (Miralax Powder Packet) 17 gm DAILY PRN PO 09/27/17 13:45 10/27/17 13:44 Amlodipine Besylate (Norvasc Tab) 10 mg DAILY PO 09/28/17 09:00 10/28/17 08:59 10/01/17 07:46 10 MG Lorazepam (Ativan Inj) PRN Dosing -Active Protocol Q1H PRN IV 09/28/17 20:15 10/28/17 20:14 10/02/17 02:41 2 MG Gabapentin (Neurontin Tab) 600 mg Q24H PO 10/02/17 12:00 10/02/17 12:01 Ampicillin Sodium/ Sulbactam Sodium (Consult) 1 ea UD PRN N/A 09/29/17 09:00 10/29/17 08:59 Ampicillin Sodium/ Sulbactam Sodium 3000 mg/Sodium Chloride 108 ml @ 216 mls/hr Q6H IV 09/29/17 06:00 10/09/17 05:59 10/02/17 06:00 216 MLS/HR Acetaminophen 650 mg/Empty Bag 65 ml @ 260 mls/hr Q6H PRN IV 09/29/17 20:15 10/29/17 20:14 10/02/17 00:05 260 MLS/HR Thiamine HCl 100 mg/Syringe 10 ml @ 2 mls/min QAM IV 09/30/17 11:00 10/30/17 10:59 10/01/17 09:53 2 MLS/MIN Folic Acid 1 mg/ Syringe 10 ml @ 5 mls/min QAM IV 09/30/17 11:00 10/30/17 10:59 10/01/17 09:53 5 MLS/MIN Multivitamins Therapeutic (Cerovite Liquid) 15 ml QAM PO 09/30/17 11:00 10/30/17 10:59 09/30/17 11:26 15 ML Rifaximin (Xifaxan Tab) 550 mg BID PO 10/01/17 11:00 10/31/17 10:59 10/01/17 22:41 550 MG Potassium Chloride/Dextrose/ Sod Cl 1,000 ml @ 75 mls/hr [id number] IV 10/01/17 11:30 10/29/17 11:29 10/02/17 02:41 75 MLS/HR Lactulose/Sterile Water/Barcode Q8 PA 10/01/17 22:00 10/31/17 21:59 10/02/17 06:47 200 GM Miscellaneous (Unit Dose Compound) 1 ea Q8 PO 10/01/17 22:00 10/31/17 21:59 10/02/17 06:00 1 EA Miconazole Nitrate (Desenex Powder) 1 appln PRN PRN EXT 10/01/17 19:00 10/31/17 18:59 Magnesium Sulfate 1 gm/Prmx 100 ml @ 100 mls/hr Q1H IV 10/02/17 08:45 11/01/17 08:44 Potassium Chloride 10 meq/ Prmx 100 ml @ 100 mls/hr Q1H IV 10/02/17 08:45 10/02/17 12:44 Potassium Phosphate 24 mmol/ Sodium Chloride 508 ml @ 100 mls/hr ONE ONCE IV 10/02/17 08:45 10/02/17 13:49 Objective Vital Signs Date Time Temp Pulse Resp B/P (MAP) Pulse Ox O2 Delivery O2 Flow Rate FiO2 10/02/17 07:17 36.9 73 18 134/77 (96) 93 Room Air 10/02/17 02:31 36.9 87 22 126/86 (99) 91 Room Air 10/01/17 23:18 37.6 80 22 136/78 (97) 92 Room Air 10/01/17 19:16 36.6 82 20 137/77 (97) 98 Room Air 10/01/17 16:05 Nasal Cannula 2.0 10/01/17 15:31 36.5 59 18 132/84 (100) 92 Room Air 10/01/17 12:03 Nasal Cannula 2.0 10/01/17 11:39 36.7 65 17 116/78 (91) 96 Nasal Cannula 2.0 Physical Exam General Appearance: + mild distress, + pertinent finding (restless in bed, pulling at covers) Eyes: PERRL Neck: no adenopathy Respiratory/Chest: lungs clear, normal breath sounds Cardiovascular: regular rate, rhythm Abdomen: non tender, soft, no organomegaly, no pulsatile mass Neurologic/Psych: alert, normal mood/affect, oriented x 3 Skin: normal color, no jaundice, warm/dry Laboratory Results Last 24 Hours Test 10/01/17 11:09 10/01/17 12:38 10/01/17 16:59 10/02/17 07:05 Lactic Acid Level 1.6 mmol/L Arterial Blood pH 7.43 Arterial Blood Partial Pressure CO2 38 mmHg Arterial Blood Partial Pressure O2 79 mm/Hg Arterial Blood HCO3 25 mmol/L Arterial Blood Oxygen Saturation 96.0 % Arterial Blood Base Excess 0.7 mEq/L Arterial Blood Gas Delivery 2L Neal Test POS Ammonia 48.6 umol/L White Blood Count 9.80 K/uL Red Blood Count 4.06 M/uL Hemoglobin 12.9 g/dL Hematocrit 37.9 % Mean Corpuscular Volume 93.3 fL Mean Corpuscular Hemoglobin 31.8 pg Mean Corpuscular Hemoglobin Concent 34.0 g/dl Platelet Count 152 K/uL Mean Platelet Volume 10.4 fL Neutrophils (%) (Auto) 72.6 % Lymphocytes (%) (Auto) 14.2 % Monocytes (%) (Auto) 10.7 % Eosinophils (%) (Auto) 1.9 % Basophils (%) (Auto) 0.3 % Neutrophils # (Auto) 7.11 K/uL Lymphocytes # (Auto) 1.39 K/uL Monocytes # (Auto) 1.05 K/uL Eosinophils # (Auto) 0.19 K/uL Basophils # (Auto) 0.03 K/uL RDW Standard Deviation 47.0 fL RDW Coefficient of Variation 13.7 % Immature Granulocyte % (Auto) 0.3 % Immature Granulocyte # (Auto) 0.03 K/uL Sodium Level 141 mmol/L Potassium Level 3.1 mmol/L Chloride Level 109 mmol/L Carbon Dioxide Level 25 mmol/L Anion Gap 8.0 mmol/L Blood Urea Nitrogen 13 mg/dl Creatinine 0.98 mg/dl Est Creatinine Clear Calc Drug Dose 71.1 ml/min Estimated GFR () 88.9 Estimated GFR (Non- 76.7 BUN/Creatinine Ratio 13.2 Random Glucose 88 mg/dl Calcium Level 8.0 mg/dl Phosphorus Level 1.8 mg/dl Magnesium Level 1.5 mg/dl Total Bilirubin 0.8 mg/dl Aspartate Amino Transf (AST/SGOT) 62 U/L Alanine Aminotransferase (ALT/SGPT) 36 U/L Alkaline Phosphatase 200 U/L Total Protein 6.9 gm/dl Albumin 2.2 gm/dl Globulin 4.7 gm/dl Albumin/Globulin Ratio 0.5 Test 10/02/17 07:08 Ammonia 50.0 umol/L Assessment and Plan Patient is a 72 year old male w/ weight loss of 20 lbs, fatigue, weakness, intermittent abdominal pain w/ fullness and decreased appetite who presented to PCP for symptoms - was sent to ED for abnormal calcium level CT concerning for metastatic hepatic disease w/ question of larger lesion in left hilum w/ ductal dilation. He has a history of daily ETOH use, mildly elevated LFTs dating back to 2013. His abdominal exam is benign, but can have intermittent upper abd pain and fullness at times. - Follow up liver biopsy - Appreciate heme/onc recommendations - Etiology of fever, mental status change unclear - blood culture - OK to use lactulose PO 30 gm daily to twice daily given elevated NH3 - MRI liver to rule out CBD stone - GI to follow, please call with any questions or concerns
[2017-10-02] MEDS: POTASSIUM CHLR 10 MEQ / WTR 10 MEQ in PREMIXED WATER 100 ML IV SCH ×4 (09:18→13:44)
[2017-10-02] MEDS: FoLIC ACID INJ 1 MG in SYRINGE 9.8 ML IV SCH (09:19)
[2017-10-02] MEDS: THIAMINE HCL INJ 100 MG in SYRINGE 9 ML IV SCH (09:19)
[2017-10-02] MEDS: MAGNESIUM SULFATE 1GM / D5W 1 GM in PREMIXED IN D5W 100 ML IV SCH ×2 (09:19→12:28)
[2017-10-02] MEDS: AMLODIPINE BESYLATE 5 MG TAB PO SCH (09:20)
[2017-10-02] MEDS: MULTIVITAMINS W/MINERALS 15ML UDP PO SCH (09:20)
[2017-10-02] MEDS: RIFAXIMIN TAB 550 MG TAB PO SCH ×2 (09:20→21:56)
--- NOTE | 2017-10-02 09:25 | Progress Note ---
Internal Med Progress Note Date of Service: Oct 02, 2017. Provider Documentation: SUBJECTIVE: still confused had fever spike again denies pain trying to get up from the bed BP ok OBJECTIVE: Vital Signs-as noted below Exam: General-confused Neck-no neck masses Lungs-cta b/l no wheezing no crackles Heart-s1 and s2 heard regular no murmurs Abdomen-soft bowel sounds present non tender no distension Extremities-no edema no erythema Neuro-confused moves extremities Lab data as noted below. ASSESSMENT & PLAN: This is a 72yo M with a PMH of HTN, HLD who presents with generalized malaise and unintentional weight loss x 2 months found to be hypercalcemic at 15 with liver abnormalities on abd/pelvis CT concerning for malignancy Received aggressive fluids and iv Zometa for Hypercalcemia. Next morning of admission patient was very agitated and wanted to leave the hospital. [facility] was called. Family talked to him and he agreed to stay. later in the day patient became shaky and confused and admitted him to drink alcohol daily. Started on alcohol withdrawal protocol. Also question of sepsis as US showed thickened gall bladder and gall stones and he was spiking temps. Was started on Unasyn.MRI head unremarkable. Also hepatic encephalopathy from elevated ammonia levels. On lactulose MI. S/p EUS and biopsy of liver mass. Await results. MRCP done today no CBD stone. Await Encephalopathy( alcohol withdrawal and elevated ammonia levels) to improve. Await biopsy results. Hypercalcemia: presented with calcium 15 was started on ns@200ml/hr Zometa iv one dose given by heme/onco Concern for malignancy of liver, cholangiocarcinoma with hepatic spread bone scan negative for skeletal metastasis Heme/onco on board and appreciate inputs ca 8.0 today currently on d5ns@75ml/hr will f/u labs in am Intrahepatic ductal dilatation, liver lesions on ct scan and US s/p EUS and biopsy by GI on monday await biopsy results heme/onco on board. Encephalopathy agitation alcoholic delirium? hx of alcoholism? hepatic encephalopathy-ammonia 86 metabolic from hypercalcemia , sepsis? rule out cva/mets on alcohol withdrawal protocol mri head unremarkable to continue alcohol withdrawal protocol Elevated ammonia levels on lactulose MI will f/u levels Fever thickened gall bladder and gall stones on US follow cx- no growth so far on Unasyn had mld fever today planning for mrcp to rule out cbd stone-unremarkable will monitor A flutter on initial ekg repeat ekg NSR echo unremarkable monitor in tele HTN: Recently discontinued lisinopril, hctz due to hypotension On amlodipine will monitor Reticular opacities of lung bases: -On CXR suspected underlying interstitial lung disease on ct scan needs f/u lung nodules DVT Ppx: SCDs for now. DISPOSITION monitor in tele to be determined Vital Signs: Date Time Temp Pulse Resp B/P (MAP) Pulse Ox O2 Delivery O2 Flow Rate FiO2 10/02/17 16:00 36.4 85 20 143/73 (96) 94 Room Air 10/02/17 11:42 36.6 75 20 130/76 (94) 92 Room Air 10/02/17 07:17 36.9 73 18 134/77 (96) 93 Room Air 10/02/17 02:31 36.9 87 22 126/86 (99) 91 Room Air 10/01/17 23:18 37.6 80 22 136/78 (97) 92 Room Air 10/01/17 19:16 36.6 82 20 137/77 (97) 98 Room Air Lab Results: Results Past 24 Hours Test 10/02/17 07:05 10/02/17 07:08 Range/Units White Blood Count 9.80 4.8-10.8 K/uL Red Blood Count 4.06 4.7-6.1 M/uL Hemoglobin 12.9 14.0-18.0 g/dL Hematocrit 37.9 42-52 % Mean Corpuscular Volume 93.3 80-100 fL Mean Corpuscular Hemoglobin 31.8 25-34 pg Mean Corpuscular Hemoglobin Concent 34.0 32-36 g/dl Platelet Count 152 130-400 K/uL Mean Platelet Volume 10.4 7.4-10.4 fL Neutrophils (%) (Auto) 72.6 % Lymphocytes (%) (Auto) 14.2 % Monocytes (%) (Auto) 10.7 % Eosinophils (%) (Auto) 1.9 % Basophils (%) (Auto) 0.3 % Neutrophils # (Auto) 7.11 1.4-6.5 K/uL Lymphocytes # (Auto) 1.39 1.2-3.4 K/uL Monocytes # (Auto) 1.05 0.11-0.59 K/uL Eosinophils # (Auto) 0.19 0-0.5 K/uL Basophils # (Auto) 0.03 0-0.2 K/uL RDW Standard Deviation 47.0 36.4-46.3 fL RDW Coefficient of Variation 13.7 11.5-14.5 % Immature Granulocyte % (Auto) 0.3 % Immature Granulocyte # (Auto) 0.03 0.00-0.02 K/uL Sodium Level 141 136-145 mmol/L Potassium Level 3.1 3.5-5.1 mmol/L Chloride Level 109 98-107 mmol/L Carbon Dioxide Level 25 21-32 mmol/L Anion Gap 8.0 3-11 mmol/L Blood Urea Nitrogen 13 7-18 mg/dl Creatinine 0.98 0.60-1.40 mg/dl Est Creatinine Clear Calc Drug Dose 71.1 ml/min Estimated GFR () 88.9 Estimated GFR (Non- 76.7 BUN/Creatinine Ratio 13.2 10-20 Random Glucose 88 70-99 mg/dl Calcium Level 8.0 8.5-10.1 mg/dl Phosphorus Level 1.8 2.5-4.9 mg/dl Magnesium Level 1.5 1.8-2.4 mg/dl Total Bilirubin 0.8 0.2-1 mg/dl Aspartate Amino Transf (AST/SGOT) 62 15-37 U/L Alanine Aminotransferase (ALT/SGPT) 36 12-78 U/L Alkaline Phosphatase 200 45-117 U/L Total Protein 6.9 6.4-8.2 gm/dl Albumin 2.2 3.4-5.0 gm/dl Globulin 4.7 2.5-4.0 gm/dl Albumin/Globulin Ratio 0.5 0.9-2 Ammonia 50.0 11-32 umol/L
--- NOTE | 2017-10-02 10:17 | DIAGNOSTIC IMAGING REPORT ---
MRCP CLINICAL HISTORY: fever, gallstones, rule out CBD obstruction, known liver lesions COMPARISON STUDY: Ultrasound CT scan dated 09/27/2017 FINDINGS: The study is limited from a technical standpoint. The spleen is mildly enlarged measuring 14 cm. There are multiple hepatic masses. There is mild left lobe ductal dilatation. There is no common bile duct dilatation. There is no pancreatic ductal dilatation. There are no common bile duct filling defects. There are multiple dependent gallstones/sludge. There is borderline gallbladder wall thickening. There is trace pericholecystic fluid. IMPRESSION: 1. Cholelithiasis with borderline gallbladder wall thickening and trace pericholecystic fluid 2. No evidence of pancreatic or common bile duct dilatation. No common bile duct calculi identified 3. Multiple hepatic masses. Left lobe biliary ductal dilatation. Electronically signed by: Austin Messer M.D. 10/02/2017 10:16 AM Dictated Date/Time: 10/02/2017 10:10 AM
[2017-10-02 11:42] VITALS: BP 130/76; PULSE 75; TEMP 36.6; O2SAT 92
[2017-10-02] MEDS ORDERED: GABAPENTIN 600MG X1 DOSE PO SCH (12:00)
[2017-10-02 16:00] VITALS: BP 143/73; PULSE 85; TEMP 36.4; O2SAT 94
--- NOTE | 2017-10-02 17:31 | Hematology/Oncology Prog Note ---
Hematology/Onc Progress Note Date of Service Oct 02, 2017. Subjective I saw him at bedside around 4:45 p.m., he was sleeping, his was also at bedside, hemodynamically he has remained stable, no fever, O 2 saturation on room is around 92%, over the last 3 days MRI level was noted to be on the higher side, he is on lactulose therapy, few loose bowel movements present, as per his , mild back pain present, no nausea or vomiting, no leg edema, no bleeding from any sites. Much less tremor. Longstanding history of ETOH abuse noted, now has alcohol withdrawal which is gradually getting better. Now his calcium level is in the normal range. I reviewed his blood workup done today, normal blood counts noted. -Improvement of the kidney function noted with latest serum creatinine level is around 0.9 -AST 62, ALT 36, alkaline phosphatase 200, ammonia level around 50. -Brain MRI (09/29/2017)--> no metastatic disease. Cerebral atrophy noted. MRCP (10/03/2007) --> cholelithiasis with borderline gallbladder wall thickening and trace pericholecystic fluid, no pancreatic or CBD dilatation noted. Multiple liver lesions noted. Left lower biliary ductal dilatation noted. FNA from the liver lesion--> positive for malignant cells, waiting for the core biopsy result. I reviewed with the patient 's regarding the FNA result, once his clinical condition gets better, will decide about further management of the cancer diagnosis. Dr. Rodrigo Friend Hem/Onc Vital Signs Vital Signs Past 12 Hours Date Time Temp Pulse Resp B/P (MAP) Pulse Ox O2 Delivery O2 Flow Rate FiO2 10/02/17 11:42 36.6 75 20 130/76 (94) 92 Room Air 10/02/17 07:17 36.9 73 18 134/77 (96) 93 Room Air
[2017-10-02 18:56] VITALS: BP 128/74; PULSE 84; TEMP 37.3; O2SAT 94
[2017-10-02 22:50] VITALS: BP 138/73; PULSE 88; TEMP 37.1; O2SAT 95
[2017-10-03] MEDS: AMPICILLIN/SULBACTAM SOD INJ 3,000 MG in SODIUM CHLORIDE 0.9% 100ML 100 ML IV SCH ×2 (00:34→06:25)
[2017-10-03 03:44] VITALS: BP 139/81; PULSE 86; TEMP 36.8; O2SAT 93
[2017-10-03] MEDS: D5NSS + 20MEQ KCL 1,000 ML IV SCH ×2 (05:24→16:01)
[2017-10-03 07:04] VITALS: BP 135/75; PULSE 81; TEMP 36.9; O2SAT 94
[2017-10-03] MEDS: AMLODIPINE BESYLATE 5 MG TAB PO SCH (08:06)
[2017-10-03] MEDS: RIFAXIMIN TAB 550 MG TAB PO SCH ×2 (08:06→20:50)
[2017-10-03] MEDS: FoLIC ACID INJ 1 MG in SYRINGE 9.8 ML IV SCH (08:06)
[2017-10-03] MEDS: THIAMINE HCL INJ 100 MG in SYRINGE 9 ML IV SCH (08:06)
[2017-10-03] MEDS: MULTIVITAMINS W/MINERALS 15ML UDP PO SCH (08:07)
[2017-10-03] MEDS: UNIT DOSE COMPOUND PO SCH (09:09)
[2017-10-03] MEDS: LACTULOSE SYRUP 200 GM, WATER, STERILE IRRIG 700 ML, BARCODE IDENTIFIER 1 EA PR SCH ×2 (09:10)
--- NOTE | 2017-10-03 10:14 | Gastroenterology Progress Note ---
Progress Note Date of Service: Oct 03, 2017 Subjective Pt evaluation today including: conversation w/ patient, physical exam, chart review, lab review Pt was seen and evaluated, chart reviewed. No family at bedside Overnight pt was disoriented, pulling at lines. Was made a one-to-one. Pt has been sleeping most of the morning. He does awake to his name. He responded to a few questions , but feel back asleep. He denies pain. Remaining ROS was not obtained. ETOH: 3-4 beers daily x 20 years Tobacco: past use EGD: years ago, per pt HH and H.Pylori Colonoscopy: years ago, per pt WNL US Guided Bx 09/29/17: unspecified carcinoma, core biopsy pending Liver US 09/27/17: Technically limited study Diffusely heterogeneous hepatic echotexture. The discrete masses identified on the CT scan are difficult to discern ultrasonographically Cholelithiasis and gallbladder wall thickening. [address] bile duct Ct Chest 09/27/17: Minimally enlarged mediastinal lymph nodes 5 mm right middle lobe pulmonary nodule, and 6 mm lingular pulmonary noduleSuspected underlying interstitial lung disease with subpleural reticulation. Multiple hepatic masses suspicious for metastatic disease CT ABD/Pelvis 09/27/17: Intrahepatic biliary ductal dilatation limited to the left hepatic lobe raises concern for an obstructing mass at the level of the left aspect of the liver hilum. Given the presence of multiple suspicious lesions throughout the right hepatic lobe, which are concerning for metastases, the primary differential consideration is cholangiocarcinoma with hepatic spread. Differential considerations include an extrahepatic primary with diffuse livermetastases and secondary obstruction of the left hepatic ducts due to metastaticlesions. However, no extrahepatic malignancy is evident on this noncontrast CT.Ultrasound of the liver is recommended for potential fine-needle biopsy fortissue sampling.Upper abdominal lymphadenopathy. Extensive reticular opacities at the lung bases with subtle bronchiectasis could suggest underlying fibrotic lung disease such as nonspecific interstitiapneumonitis, chronic aspiration, or smoking related lung injury. The report will be called/faxed according to standard departmental protocol. Family history of GI malignancy: none Family history of liver disease: none Review of Systems Unable to preform ROS Medications Current Inpatient Medications Medications (Trade) Dose Ordered Sig/Van Route Start Time Stop Time Status Last Admin Dose Admin Ondansetron HCl (Zofran Inj) 4 mg Q6H PRN IV 09/27/17 13:45 3/30/18 13:44 10/01/17 17:09 4 MG Polyethylene (Miralax Powder Packet) 17 gm DAILY PRN PO 09/27/17 13:45 10/27/17 13:44 Amlodipine Besylate (Norvasc Tab) 10 mg DAILY PO 09/28/17 09:00 10/28/17 08:59 10/03/17 08:06 10 MG Lorazepam (Ativan Inj) PRN Dosing -Active Protocol Q1H PRN IV 09/28/17 20:15 10/28/17 20:14 10/02/17 20:24 2 MG Ampicillin Sodium/ Sulbactam Sodium (Consult) 1 ea UD PRN N/A 09/29/17 09:00 10/29/17 08:59 Ampicillin Sodium/ Sulbactam Sodium 3000 mg/Sodium Chloride 108 ml @ 216 mls/hr Q6H IV 09/29/17 06:00 10/09/17 05:59 10/03/17 06:25 216 MLS/HR Acetaminophen 650 mg/Empty Bag 65 ml @ 260 mls/hr Q6H PRN IV 09/29/17 20:15 10/29/17 20:14 10/02/17 00:05 260 MLS/HR Thiamine HCl 100 mg/Syringe 10 ml @ 2 mls/min QAM IV 09/30/17 11:00 10/30/17 10:59 10/03/17 08:06 2 MLS/MIN Folic Acid 1 mg/ Syringe 10 ml @ 5 mls/min QAM IV 09/30/17 11:00 10/30/17 10:59 10/03/17 08:06 5 MLS/MIN Multivitamins Therapeutic (Cerovite Liquid) 15 ml QAM PO 09/30/17 11:00 10/30/17 10:59 10/03/17 08:07 15 ML Rifaximin (Xifaxan Tab) 550 mg BID PO 10/01/17 11:00 10/31/17 10:59 10/03/17 08:06 550 MG Potassium Chloride/Dextrose/ Sod Cl 1,000 ml @ 75 mls/hr [id number] IV 10/01/17 11:30 10/29/17 11:29 10/03/17 05:24 75 MLS/HR Miconazole Nitrate (Desenex Powder) 1 appln PRN PRN EXT 10/01/17 19:00 10/31/17 18:59 Miscellaneous (Unit Dose Compound) 1 ea BID PO 10/02/17 21:00 10/31/17 21:59 10/03/17 09:09 1 EA Lactulose/Sterile Water/Barcode BID FL 10/02/17 21:00 11/01/17 20:59 10/03/17 09:10 10 GM Objective Vital Signs Date Time Temp Pulse Resp B/P (MAP) Pulse Ox O2 Delivery O2 Flow Rate FiO2 10/03/17 07:04 36.9 81 135/75 (95) 94 Room Air 10/03/17 03:44 36.8 86 18 139/81 (100) 93 Room Air 10/02/17 22:50 37.1 88 16 138/73 (94) 95 Room Air 10/02/17 18:56 37.3 84 19 128/74 (92) 94 Room Air 10/02/17 16:00 36.4 85 20 143/73 (96) 94 Room Air 10/02/17 11:42 36.6 75 20 130/76 (94) 92 Room Air Physical Exam General Appearance: no apparent distress (pt resting comfortably in bed, 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 He has a history of daily ETOH use, mildly elevated LFTs dating back to 2013. His abdominal exam is benign, but can have intermittent upper abd pain and fullness at times. - ETOH withdrawal protocol - Liver biopsy w/ unspecific carcinoma, core biopsy pending - Appreciate heme/onc recommendations - Etiology of fever, mental status change unclear - OK to use lactulose PO 30 gm daily to twice daily given elevated NH3 - MRI without biliary obstruction - GI to sign off. Please call with any questions or concerns Attg add: I reviewed chart and labs, interviewed and examined pt. Pt remains confused, o/w no complaints or events. His labs show mildly increased ammonia; however, he has no asterixis. Prelim path shows cancer, IHC stains pending. Can cont lactulose, although his clinical presentation is not c/w HE. Would d/ c lactulose if no improvement in mental status after 1-2 weeks. Will sign off. Pt does not need GI f/u. Please call with questions.
[2017-10-03 10:51] VITALS: BP 120/70; PULSE 79; TEMP 36.7; O2SAT 95
--- NOTE | 2017-10-03 14:10 | Progress Note ---
Progress Note Date of Service Oct 03, 2017. Progress Note Patient evaluated at bedside, still remains confused, does not verbalize any pain or discomfort. Discussed with patient regarding the pathology report of the lung mass, The liver FNA sample on September 29, 2017 shows presence of atypical cells, positive for malignant cells Final immunohisto stain for confirmation of primary site of malignant cells, still pending. Given the presentation of hypercalcemia, multiple mass noted in the liver, concern for metastatic spread of malignancy Primary remains unknown, Discussed with Dr. Friend hematology oncology, definite treatment with chemotherapy will be devised once final confirmatory pathology report is available. Patient needs to be clinically stable, adequately treated/recover from his acute illness, and have a follow-up visit in Dr. Friend's clinic As an outpatient For discussion of further treatment plan Plan of care discussed with patient's Tonia Jenkins at bedside.
[2017-10-03 14:20] LABS: ALBUMIN 2.3 gm/dl (3.4-5.0); CALCIUM 7.6 mg/dl (8.5-10.1); CREATININE 0.88 mg/dl (0.60-1.40); POTASSIUM 3.2 mmol/L (3.5-5.1); TOTAL PROTEIN 6.8 gm/dl (6.4-8.2)
[2017-10-03] MEDS: LORAZEPAM 2 MG/ML 1 ML VIAL IV PRN (14:54)
[2017-10-03 15:07] VITALS: BP 193/83; PULSE 95; TEMP 36.9; O2SAT 96
[2017-10-03 15:33] LABS: PHOSPHORUS 1.4 mg/dl (2.5-4.9)
--- NOTE | 2017-10-03 15:36 | Progress Note ---
Internal Med Progress Note Date of Service: Oct 03, 2017. Provider Documentation: SUBJECTIVE: Patient evaluated at bedside, still remains confused, does not verbalize any pain or discomfort. no agitation noted thinks that he is in " [employer] " Discussed with patient's regarding the pathology report of the lung mass, The liver FNA sample on September 29, 2017 shows presence of atypical cells, positive for malignant cells Final immunohisto stain for confirmation of primary site of malignant cells, still pending. Given the presentation of hypercalcemia, multiple mass noted in the liver, concern for metastatic spread of malignancy Primary remains unknown, Discussed with Dr. Friend hematology oncology, definite treatment with chemotherapy will be devised once final confirmatory pathology report is available. Patient needs to be clinically stable, adequately treated/recover from his acute illness, and have a follow-up visit in Dr. Friend's clinic As an outpatient For discussion of further treatment plan Plan of care discussed with patient's Tonia Jenkins at bedside. OBJECTIVE: Vital Signs-as noted below Exam: General-no apparent distress noted, keeps eyes closed, wakes up easily with verbal cue, no agitation noted. Eyes-mild icteric sclera. Patient cannot follow commands for eye movement exam ENT-moist oral mucosa Neck-no JVD no carotid bruit, no thyromegaly noted Lungs-clear to auscultation no wheezes or rales Heart-regular S1-S2 Abdomen-soft, positive ascites, nontender, bowel sounds active Extremities-no lower extremity edema no rash or deformity noted Neuro-remains confused, oriented to person only, thinks that he is in a latter-day, could recognize his , moving all limbs, no focal neurological deficit noted. Lab data as noted below. ASSESSMENT & PLAN: 1.Metastatic malignancy/multiple liver masses Incidental finding in CT abdomen pelvis: Intrahepatic biliary ductal dilatation, limited to the left hepatic lobe raises concern for mild obstructive mass , multiple mass/suspicious nodule noted in the right hepatic lobe Tumor markers: AFP 3.7 within normal limits CEA Ag 3.5elevated CA 199 antigen: 403 significantly elevated (<34) Ultrasound-guided FNA of liver mass Initial pathology showed, atypical cells suspicious of malignancy Final final core pathology report is still pending Hematology oncology Dr. Friend consulted Appreciate input 2. Confusion/metabolic encephalopathy -Multifactorial-possibly due to hypercalcemia, electrolyte derangement, elevated ammonia, with multiple liver metastases -Also concerned for possible alcohol withdrawal, -CT head/MRI of brain-shows no evidence of brain metastases -Continue supportive care, correction of electrolytes -Monitor neuro checks -Fall precaution -Discontinue benzodiazepine/avoid sedative and hypnotics 3. Hypercalcemia Due to malignancy Calcium level was elevated 15 on admission Improved after IV fluids, Given Zometa Calcium 7.6 today Continue to monitor labs. 4. Low mag low potassium and low phos: Due to poor p.o. intake/multiple bowel movement /GI loss with lactulose Replaced Follow daily labs 5. Hypertension BP stable 6. Significant weight loss/poor appetite: Per patient lost more than 20 pounds in last 3 months Has not been eating or drinking Possibility due to underlying malignancy Order for dietitian consult for nutrition supplement CODE STATUS: Full code DVT PROPHYLAXIS Moderate to high risk, metastatic malignancy Ordered for subcu Lovenox DISPOSITION To be determined. Patient shows a significant decline both cognitive eyes and functionally. Order for PT OT evaluation. Made in rehab on discharge. Social service consulted for discharge planning Plan of care discussed with Tonia Garcia at the bedside Update given to son Curtis Garcia ( # [phone] ) over the phone Vital Signs: Date Time Temp Pulse Resp B/P (MAP) Pulse Ox O2 Delivery O2 Flow Rate FiO2 10/03/17 16:10 36.6 84 22 127/72 (90) 93 Room Air 10/03/17 15:07 36.9 95 22 193/83 (119) 96 Room Air 10/03/17 10:51 36.7 79 20 120/70 (87) 95 Room Air 10/03/17 07:04 36.9 81 135/75 (95) 94 Room Air 10/03/17 03:44 36.8 86 18 139/81 (100) 93 Room Air 10/02/17 22:50 37.1 88 16 138/73 (94) 95 Room Air 10/02/17 18:56 37.3 84 19 128/74 (92) 94 Room Air Lab Results: Results Past 24 Hours Test 10/03/17 13:49 10/03/17 14:55 Range/Units Sodium Level 140 136-145 mmol/L Potassium Level 3.2 3.5-5.1 mmol/L Chloride Level 111 98-107 mmol/L Carbon Dioxide Level 22 21-32 mmol/L Anion Gap 8.0 3-11 mmol/L Blood Urea Nitrogen 10 7-18 mg/dl Creatinine 0.88 0.60-1.40 mg/dl Est Creatinine Clear Calc Drug Dose 79.1 ml/min Estimated GFR () 99.5 Estimated GFR (Non- 85.8 BUN/Creatinine Ratio 11.3 10-20 Random Glucose 94 70-99 mg/dl Calcium Level 7.6 8.5-10.1 mg/dl Total Bilirubin 0.9 0.2-1 mg/dl Direct Bilirubin 0.4 0-0.2 mg/dl Aspartate Amino Transf (AST/SGOT) 67 15-37 U/L Alanine Aminotransferase (ALT/SGPT) 40 12-78 U/L Alkaline Phosphatase 232 45-117 U/L Total Protein 6.8 6.4-8.2 gm/dl Albumin 2.3 3.4-5.0 gm/dl Globulin 4.5 2.5-4.0 gm/dl Albumin/Globulin Ratio 0.5 0.9-2 Phosphorus Level 1.4 2.5-4.9 mg/dl Magnesium Level 1.6 1.8-2.4 mg/dl
[2017-10-03] MEDS ORDERED: ENOXAPARIN 30 MG/0.3 ML SYR SQ ONE (15:45)
[2017-10-03] MEDS ORDERED: POTASSIUM PHOS 3 MMOL/1 ML INFUSION IV STA (15:58)
[2017-10-03] MEDS: POTASSIUM CHLR 10 MEQ / WTR 10 MEQ in PREMIXED WATER 100 ML IV SCH ×2 (16:00→17:17)
[2017-10-03 16:10] VITALS: BP 127/72; PULSE 84; TEMP 36.6; O2SAT 93
[2017-10-03] MEDS ORDERED: POTASSIUM PHOSPHATE INJ 9 MMOL in SODIUM CHLORIDE 0.9% 250ML 250 ML IV ONE (16:15)
[2017-10-03] MEDS ORDERED: MAGNESIUM SULFATE 1GM / D5W 1 GM in PREMIXED IN D5W 100 ML IV ONE (16:15)
[2017-10-03] MEDS: LIDODERM (LIDOCAINE) PATCH 5% TD SCH (17:04)
--- NOTE | 2017-10-03 19:11 | Hematology/Oncology Prog Note ---
Hematology/Onc Progress Note Date of Service Oct 03, 2017. Subjective I saw him at bedside, no family members at bedside, presently he is having 1 to 1 watch, he is not answering any of the questions, hemodynamically he has remained stable, no fever, O2 saturation is around 93%. Earlier he had ammonia level but overall clinical picture does not appear to be hepatic encephalopathy. He is on lactulose therapy and no significant response noted in his mantle status. 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 Blood workup done on 10/03/2017 - Phosphorus level 1.4, magnesium level 1.6 -BUN/Creat: 10/0.8, calcium 7.6. -AST 67, ALT 40, alkaline phosphatase 232, Total bilirubin: 0.6. Cancer marker result: -AFP level--> 3.7 which is in normal range -CEA level--> 3.5 which is borderline up. -CA 19-9 level--> 493 which is on the higher side. Once his clinical condition improves, I would consider for upper and lower GI endoscopic evaluation to look for primary GI tumor sites. I am not sure about his the cause of his current neurological status, perhaps we should consider for neurology evaluation. Will follow-up. Dr. Rodrigo Friend Hem/Onc Vital Signs Vital Signs Past 12 Hours Date Time Temp Pulse Resp B/P (MAP) Pulse Ox O2 Delivery O2 Flow Rate FiO2 10/03/17 16:10 36.6 84 22 127/72 (90) 93 Room Air 10/03/17 15:50 Room Air 10/03/17 15:07 36.9 95 22 193/83 (119) 96 Room Air 10/03/17 10:51 36.7 79 20 120/70 (87) 95 Room Air
[2017-10-03] MEDS: LACTULOSE SYRUP 30 GM/45 ML UDP PO SCH (20:50)
[2017-10-03 22:57] VITALS: BP 163/77; PULSE 88; TEMP 36.3; O2SAT 95
[2017-10-04] MEDS: ACETAMINOPHEN IV 650 MG in EMPTY BAG 0 ML IV PRN (00:45)
[2017-10-04 08:15] VITALS: O2SAT 95
[2017-10-04 08:18] LABS: ALBUMIN 2.4 gm/dl (3.4-5.0); CALCIUM 7.4 mg/dl (8.5-10.1); CREATININE 0.81 mg/dl (0.60-1.40); POTASSIUM 3.2 mmol/L (3.5-5.1)
[2017-10-04 08:27] LABS: PHOSPHORUS 1.8 mg/dl (2.5-4.9); TOTAL PROTEIN 6.9 gm/dl (6.4-8.2)
[2017-10-04] MEDS: MULTIVITAMINS W/MINERALS 15ML UDP PO SCH (08:53)
[2017-10-04] MEDS: AMLODIPINE BESYLATE 5 MG TAB PO SCH (08:53)
[2017-10-04] MEDS: RIFAXIMIN TAB 550 MG TAB PO SCH ×2 (08:54→20:43)
[2017-10-04] MEDS: FoLIC ACID INJ 1 MG in SYRINGE 9.8 ML IV SCH (08:55)
[2017-10-04] MEDS: THIAMINE HCL INJ 100 MG in SYRINGE 9 ML IV SCH (08:56)
[2017-10-04] MEDS: LACTULOSE SYRUP 30 GM/45 ML UDP PO SCH ×2 (09:00→10:04)
[2017-10-04] MEDS: ENOXAPARIN 30 MG/0.3 ML SYR SQ SCH (09:00)
[2017-10-04] MEDS: LIDODERM (LIDOCAINE) PATCH 5% TD SCH (09:00)
[2017-10-04] MEDS ORDERED: POTASSIUM PHOS 3 MMOL/1 ML INFUSION IV STA (11:48)
--- NOTE | 2017-10-04 12:14 | Progress Note ---
Progress Note Date of Service Oct 04, 2017. Progress Note Patient's mental status remains unchanged. Increased somnolence, wakes up easily, No orientation to time or place, recognizes Pathology for liver FNA core biopsy now available The pattern of the tumor cells shows adenocarcinoma most likely primaries being from lungs or GI tract Report report of final pathology discussed with hematology oncology Dr. Friend Will need an upper and lower GI endoscopy procedure, in future At present more concerning issue for patient is ongoing confusion, altered mental status Brain imaging of MRI and CAT scan shows no evidence of metastatic disease Patient is getting lactulose for borderline elevation of ammonia Discussed with GI team yesterday no evidence of hepatic encephalopathy, patient should not be disoriented and confused given the level of ammonia level Recommend to continue lactulose PO BID look for other reason for persistent encephalopathy Order to repeat patient's culture again to rule out any evidence of infection or sepsis, causing persistent altered mental status. Labs/electrolytes reviewed this morning has persistent low potassium and low phosphorus corrected continue to follow daily labs Patient's prognosis remains poor PT OT evaluation requested as on hospital discharge patient will need rehab will need improve cognition status able to follow commands before a rehab transfer. Plan of care discussed with hematology oncology Dr. Friend Neurology consult requested for further evaluation and recommendation ordered for EEG although there is no documentation or report of seizure activity or abnormal/ involuntary limb movement Continue to follow closely update given to patient's son Curtis Garcia over the phone
[2017-10-04] MEDS ORDERED: POTASSIUM CHLORIDE 10 MEQ TABCR PO ONE (12:30)
[2017-10-04] MEDS ORDERED: POTASSIUM PHOSPHATE INJ 6 MMOL in SODIUM CHLORIDE 0.9% 100ML 100 ML IV SCH (12:30)
[2017-10-04 12:43] VITALS: BP 148/77; PULSE 88; O2SAT 98
--- NOTE | 2017-10-04 14:13 | DIAGNOSTIC IMAGING REPORT ---
CHEST ONE VIEW PORTABLE CLINICAL HISTORY: 72 years-old Male presenting with SOB. TECHNIQUE: Portable upright AP view of the chest was obtained. COMPARISON: None. FINDINGS: Atherosclerosis of aortic arch. Cardiac silhouette enlarged. Pulmonary vascular prominence. Lungs and pleural spaces clear. Degenerative changes of the thoracic spine. Upper abdomen normal. IMPRESSION: 1. Cardiomegaly with volume overload. No alicia pulmonary edema. Electronically signed by: Kieran Buenrostro M.D. 10/04/2017 2:12 PM Dictated Date/Time: 10/04/2017 2:08 PM
--- NOTE | 2017-10-04 14:40 | Gastroenterology Progress Note ---
Progress Note Date of Service: Oct 04, 2017 Subjective Pt evaluation today including: conversation w/ patient, physical exam, chart review, lab review Pt was seen and evaluated, chart reviewed. Liver biopsy returned w/ metastatic adenocarcinoma, unknown primary. Will need to rule out GI tract primary. On exam today pt is more alert, he is oriented to person, place not time. Offers no complaints. No abdominal pain. No nausea, vomiting. No fever, chills. ETOH: 3-4 beers daily x 20 years Tobacco: past use EGD: years ago, per pt HH and H.Pylori Colonoscopy: years ago, per pt WNL US Guided Bx 09/29/17: metastatic adenocarcinoma, unknown primary Liver US 09/27/17: Technically limited study Diffusely heterogeneous hepatic echotexture. The discrete masses identified on the CT scan are difficult to discern ultrasonographically Cholelithiasis and gallbladder wall thickening. 5 mm [address] bile duct Ct Chest 09/27/17: Minimally enlarged mediastinal lymph nodes 5 mm right middle lobe pulmonary nodule, and 6 mm lingular pulmonary noduleSuspected underlying interstitial lung disease with subpleural reticulation. Multiple hepatic masses suspicious for metastatic disease CT ABD/Pelvis 09/27/17: Intrahepatic biliary ductal dilatation limited to the left hepatic lobe raises concern for an obstructing mass at the level of the left aspect of the liver hilum. Given the presence of multiple suspicious lesions throughout the right hepatic lobe, which are concerning for metastases, the primary differential consideration is cholangiocarcinoma with hepatic spread. Differential considerations include an extrahepatic primary with diffuse livermetastases and secondary obstruction of the left hepatic ducts due to metastaticlesions. However, no extrahepatic malignancy is evident on this noncontrast CT.Ultrasound of the liver is recommended for potential fine-needle biopsy fortissue sampling.Upper abdominal lymphadenopathy. Extensive reticular opacities at the lung bases with subtle bronchiectasis could suggest underlying fibrotic lung disease such as nonspecific interstitiapneumonitis, chronic aspiration, or smoking related lung injury. The report will be called/faxed according to standard departmental protocol. Review of Systems Constitutional: + weakness, + fatigue, No fever, No chills Respiratory: No cough, No sputum, No shortness of breath Cardiac: No chest pain, No edema Abdomen: No pain, No nausea, No vomiting, No diarrhea, No constipation, No GI bleeding, No dysphagia, No odynophagia Male : + incontinence, + problem reported (scotal pain) Skin: No rash, No itch Medications Current Inpatient Medications Medications (Trade) Dose Ordered Sig/Van Route Start Time Stop Time Status Last Admin Dose Admin Ondansetron HCl (Zofran Inj) 4 mg Q6H PRN IV 09/27/17 13:45 10/27/17 13:44 10/01/17 17:09 4 MG Polyethylene (Miralax Powder Packet) 17 gm DAILY PRN PO 09/27/17 13:45 10/27/17 13:44 Amlodipine Besylate (Norvasc Tab) 10 mg DAILY PO 09/28/17 09:00 10/28/17 08:59 10/04/17 08:53 10 MG Acetaminophen 650 mg/Empty Bag 65 ml @ 260 mls/hr Q6H PRN IV 09/29/17 20:15 10/29/17 20:14 10/04/17 00:45 260 MLS/HR Thiamine HCl 100 mg/Syringe 10 ml @ 2 mls/min QAM IV 09/30/17 11:00 10/30/17 10:59 10/04/17 08:56 2 MLS/MIN Folic Acid 1 mg/ Syringe 10 ml @ 5 mls/min QAM IV 09/30/17 11:00 10/30/17 10:59 10/04/17 08:55 5 MLS/MIN Multivitamins Therapeutic (Cerovite Liquid) 15 ml QAM PO 09/30/17 11:00 10/30/17 10:59 10/04/17 08:53 15 ML Rifaximin (Xifaxan Tab) 550 mg BID PO 10/01/17 11:00 10/31/17 10:59 10/04/17 08:54 550 MG Potassium Chloride/Dextrose/ Sod Cl 1,000 ml @ 100 mls/hr Q10H IV 10/01/17 11:30 10/29/17 11:29 10/03/17 16:01 50 MLS/HR Miconazole Nitrate (Desenex Powder) 1 appln PRN PRN EXT 10/01/17 19:00 10/31/17 18:59 Lactulose (Chronulac Syrup) 30 gm BID PO 10/03/17 21:00 11/02/17 20:59 10/04/17 10:04 30 GM Lidocaine (Lidoderm Patch 5%) 1 patch QAM TD 10/03/17 15:15 11/02/17 15:14 10/03/17 17:04 1 PATCH Miscellaneous (Remove Lidoderm Patch) 1 ea DAILY@21 N/A 10/03/17 21:00 11/02/17 20:59 10/03/17 20:48 1 EA Enoxaparin Sodium (Lovenox Inj) 30 mg QAM SQ 10/04/17 09:00 11/03/17 08:59 Potassium Phosphate 6 mmol/ Sodium Chloride 102 ml @ 88 mls/hr TODAY@1230 IV 10/04/17 12:30 10/04/17 16:00 10/04/17 12:56 88 MLS/HR Objective Vital Signs Date Time Temp Pulse Resp B/P (MAP) Pulse Ox O2 Delivery O2 Flow Rate FiO2 10/04/17 12:43 88 98 10/04/17 08:15 95 Room Air 10/04/17 00:03 Room Air 10/03/17 22:57 36.3 88 22 163/77 (105) 95 Room Air 10/03/17 16:10 36.6 84 22 127/72 (90) 93 Room Air 10/03/17 15:50 Room Air 10/03/17 15:07 36.9 95 22 193/83 (119) 96 Room Air Physical Exam General Appearance: no apparent distress Eyes: PERRL ENT: hearing grossly normal Neck: supple, trachea midline Respiratory/Chest: lungs clear, normal breath sounds Cardiovascular: regular rate, rhythm, no gallop, no JVD Abdomen: normal bowel sounds, non tender, soft, no organomegaly Neurologic/Psych: alert, normal mood/affect Skin: normal color, warm/dry Laboratory Results Last 24 Hours Test 10/03/17 14:55 10/04/17 07:33 10/04/17 12:55 10/04/17 14:19 Phosphorus Level 1.4 mg/dl 1.8 mg/dl Magnesium Level 1.6 mg/dl 1.8 mg/dl Sodium Level 141 mmol/L Potassium Level 3.2 mmol/L Chloride Level 113 mmol/L Carbon Dioxide Level 22 mmol/L Anion Gap 7.0 mmol/L Blood Urea Nitrogen 11 mg/dl Creatinine 0.81 mg/dl Est Creatinine Clear Calc Drug Dose 86.0 ml/min Estimated GFR () 102.9 Estimated GFR (Non- 88.8 BUN/Creatinine Ratio 13.0 Random Glucose 86 mg/dl Calcium Level 7.4 mg/dl Total Bilirubin 1.0 mg/dl Direct Bilirubin 0.5 mg/dl Aspartate Amino Transf (AST/SGOT) 66 U/L Alanine Aminotransferase (ALT/SGPT) 43 U/L Alkaline Phosphatase 234 U/L Ammonia 66.4 umol/L Total Protein 6.9 gm/dl Albumin 2.4 gm/dl Globulin 4.5 gm/dl Albumin/Globulin Ratio 0.5 Lactic Acid Level 2.7 mmol/L Procalcitonin 0.29 ng/ml Arterial Blood pH 7.47 Arterial Blood Partial Pressure CO2 29 mmHg Arterial Blood Partial Pressure O2 80 mm/Hg Arterial Blood HCO3 20 mmol/L Arterial Blood Oxygen Saturation 96.4 % Arterial Blood Base Excess -2.5 mEq/L Arterial Blood Gas Delivery ROOM AIR Neal Test POS Assessment and Plan Patient is a 72 year old male w/ weight loss of 20 lbs, fatigue, weakness, intermittent abdominal pain w/ fullness and decreased appetite who presented to PCP for symptoms - was sent to ED for abnormal calcium level CT concerning for metastatic hepatic disease w/ question of larger lesion in left hilum w/ ductal dilation. He has a history of daily ETOH use, mildly elevated LFTs dating back to 2013. His abdominal exam is benign, but can have intermittent upper abd pain and fullness at times. His liver biopsy returned w/ metastatic adenocarcinoma, unknown primary. His lactic acid is elevated, repeat cultures are pending - ETOH withdrawal protocol - Liver biopsy w/ metastatic adenocarcinoma carcinoma - Will need to rule out GI tract primary - Appreciate heme/onc recommendations - GI would recommend a chest CT - Clear liquids today - NPO after midnight - Tentatively plan for EGD tomorrow - Will arrange colonoscopy when pt is medically stable and able to adequately prep for a colonoscopy. Attg: i reviewed chart and labs. Pt with carcinoma of unknown primary. Would recommend chest imaging, and if negative, then perez-endoscopy to look for primary. GI to follow, please call with any questions or concerns.
[2017-10-04 15:12] VITALS: BP 159/74; PULSE 66; TEMP 37.1; O2SAT 98
[2017-10-04] MEDS: D5NSS + 20MEQ KCL 1,000 ML IV SCH ×2 (15:26→23:51)
--- NOTE | 2017-10-04 15:33 | Neurology Consultation ---
Neurology Consultation Date of Consultation: Oct 04, 2017. Attending Physician: Lyndsay Castelan M.D. Primary Care Physician: Nain Hoff D.OLawrence Reason for Consultation: confusion/altered MS History of Present Illness Source: patient, spouse José is a 72 year old male PMH DL, HH, HTN, GERD, basal cell carcinoma. His is in the room and reports they were in [facility] when the confusion started. He didn't want to be hospitalize there so she drove back to this area which they live in [place]. CT imaging is concerning for liver malignancy. He had elevated LFTs dating back to 2013 in [facility]. He was to be seen at his PCP this week due to a report weight loss of over 20 pounds in the past 2 months. He also developed fatigue and some confusion. He was found to have a CA > 15, ammonia 56, alk phos 241, GFR 42.7. He was started on lactulose but it is currently stopped. His is in the room and states he is currently close to his baseline just seems very tired. denies CP,SOB, abdominal pain, N, V. He has had no appetite but has been drinking clear fluids. He is aware of the cancer diagnosis and the plan by GI to proceed with Upper and Lower endoscopy. Past Medical/Surgical History Medical Problems: (1) Dilated bile duct Status: Acute (2) Hypercalcemia Status: Acute (3) Liver mass Status: Acute Social History Alcohol Use: occasionally Marital Status: Occupation Status: retired Allergies Coded Allergies: Yvette Nut (Verified Allergy, Unknown, RASH, 09/28/17) Red, puffy eyes NO KNOWN DRUG ALLERGIES (Unverified Allergy, Unknown, NONE, 09/27/17) Scallop (Verified Allergy, Unknown, GI SYMPTOMS, 09/28/17) Current Inpatient Medications Current Inpatient Medications Medications (Trade) Dose Ordered Sig/Van Route Start Time Stop Time Status Last Admin Dose Admin Ondansetron HCl (Zofran Inj) 4 mg Q6H PRN IV 09/27/17 13:45 10/27/17 13:44 10/01/17 17:09 4 MG Polyethylene (Miralax Powder Packet) 17 gm DAILY PRN PO 09/27/17 13:45 10/27/17 13:44 Amlodipine Besylate (Norvasc Tab) 10 mg DAILY PO 09/28/17 09:00 10/28/17 08:59 10/04/17 08:53 10 MG Acetaminophen 650 mg/Empty Bag 65 ml @ 260 mls/hr Q6H PRN IV 09/29/17 20:15 10/29/17 20:14 10/04/17 00:45 260 MLS/HR Thiamine HCl 100 mg/Syringe 10 ml @ 2 mls/min QAM IV 09/30/17 11:00 10/30/17 10:59 10/04/17 08:56 2 MLS/MIN Folic Acid 1 mg/ Syringe 10 ml @ 5 mls/min QAM IV 09/30/17 11:00 10/30/17 10:59 10/04/17 08:55 5 MLS/MIN Multivitamins Therapeutic (Cerovite Liquid) 15 ml QAM PO 09/30/17 11:00 10/30/17 10:59 10/04/17 08:53 15 ML Rifaximin (Xifaxan Tab) 550 mg BID PO 10/01/17 11:00 10/31/17 10:59 10/04/17 08:54 550 MG Potassium Chloride/Dextrose/ Sod Cl 1,000 ml @ 100 mls/hr Q10H IV 10/01/17 11:30 10/29/17 11:29 10/03/17 16:01 50 MLS/HR Miconazole Nitrate (Desenex Powder) 1 appln PRN PRN EXT 10/01/17 19:00 10/31/17 18:59 Lactulose (Chronulac Syrup) 30 gm BID PO 10/03/17 21:00 11/02/17 20:59 10/04/17 10:04 30 GM Lidocaine (Lidoderm Patch 5%) 1 patch QAM TD 10/03/17 15:15 11/02/17 15:14 10/03/17 17:04 1 PATCH Miscellaneous (Remove Lidoderm Patch) 1 ea DAILY@21 N/A 10/03/17 21:00 11/02/17 20:59 10/03/17 20:48 1 EA Enoxaparin Sodium (Lovenox Inj) 30 mg QAM SQ 10/04/17 09:00 11/03/17 08:59 Potassium Phosphate 6 mmol/ Sodium Chloride 102 ml @ 88 mls/hr TODAY@1230 IV 10/04/17 12:30 10/04/17 16:00 10/04/17 12:56 88 MLS/HR Physical Exam Vital Signs (Past 24 Hrs): Date Time Temp Pulse Resp B/P (MAP) Pulse Ox O2 Delivery O2 Flow Rate FiO2 10/04/17 12:43 88 98 10/04/17 08:15 95 Room Air 10/04/17 00:03 Room Air 10/03/17 22:57 36.3 88 22 163/77 (105) 95 Room Air 10/03/17 16:10 36.6 84 22 127/72 (90) 93 Room Air 10/03/17 15:50 Room Air 10/03/17 15:07 36.9 95 22 193/83 (119) 96 Room Air Physical Exam: Constitutional: appearance pale appears tired but alert Ears, Nose, Mouth and Throat: mucous membranes moist, no injection and skin normal, eyes normal Cardiovascular: normal S-1 and S-2 and regular rate and rhythm Respiratory: course breath sounds Musculoskeletal: no peripheral edema and good distal pulses Skin: no stigmata of neurocutaneous disease noted and normal and intact Eyes: extraocular muscles intact (EOMI) and pupils equal, round and reactive to light (PERRL) NEUROLOGIC EXAMINATION: Mental status: Alert and interactive Oriented self, [facility], 2018, 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 Plantar responses were flexor. Sensory: light touch, vibration cool touch Coordination: finger to nose without bipass Gait/Stance: Posture lying in bed Motor: Negative for pronator drift of out stretched arms with eyes closed. Strength: biceps triceps hand on car supervisor intrinsic 5/5 bilaterally, hip flex plantar flex ext 5/ 5 bilaterally Laboratory Results Past 24 Hours: 10/04/17 07:33 Test 10/04/17 07:33 10/04/17 12:55 10/04/17 14:19 10/04/17 14:30 Anion Gap 7.0 mmol/L (3-11) Est Creatinine Clear Calc Drug Dose 86.0 ml/min Estimated GFR () 102.9 Estimated GFR (Non- 88.8 BUN/Creatinine Ratio 13.0 (10-20) Calcium Level 7.4 mg/dl (8.5-10.1) Phosphorus Level 1.8 mg/dl (2.5-4.9) Magnesium Level 1.8 mg/dl (1.8-2.4) Total Bilirubin 1.0 mg/dl (0.2-1) Direct Bilirubin 0.5 mg/dl (0-0.2) Aspartate Amino Transf (AST/SGOT) 66 U/L (15-37) Alanine Aminotransferase (ALT/SGPT) 43 U/L (12-78) Alkaline Phosphatase 234 U/L (45-117) Ammonia 66.4 umol/L (11-32) Total Protein 6.9 gm/dl (6.4-8.2) Albumin 2.4 gm/dl (3.4-5.0) Globulin 4.5 gm/dl (2.5-4.0) Albumin/Globulin Ratio 0.5 (0.9-2) Lactic Acid Level 2.7 mmol/L (0.4-2.0) Procalcitonin 0.29 ng/ml (0-0.5) Arterial Blood pH 7.47 (7.35-7.45) Arterial Blood Partial Pressure CO2 29 mmHg (35-46) Arterial Blood Partial Pressure O2 80 mm/Hg (80-95) Arterial Blood HCO3 20 mmol/L (19-24) Arterial Blood Oxygen Saturation 96.4 % (90-95) Arterial Blood Base Excess -2.5 mEq/L (-9-1.8) Arterial Blood Gas Delivery ROOM AIR Neal Test POS (POS) Urine Color DK YELLOW Urine Appearance CLEAR (CLEAR) Urine pH 6.5 (4.5-7.5) Urine Specific [place] 1.017 (1.000-1.030) Urine Protein 2+ (NEG) Urine Glucose (UA) 1+ (NEG) Urine Ketones NEG (NEG) Urine Occult Blood 1+ (NEG) Urine Nitrite NEG (NEG) Urine Bilirubin NEG (NEG) Urine Urobilinogen NEG (NEG) Urine Leukocyte Esterase NEG (NEG) Urine WBC (Auto) 10-30 /hpf (0-5) Urine RBC (Auto) 5-10 /hpf (0-4) Urine Hyaline Casts (Auto) 10-30 /lpf (0-5) Urine Epithelial Cells (Auto) >30 /lpf (0-5) Urine Bacteria (Auto) NEG (NEG) Urine Renal Epithelial Cells /lpf (0-5) Urine Yeast (Auto) (NONE PRSENT) Imaging MRI brain combo- No acute intracranial pathology. No abnormal enhancement. The degree of diffuse cerebral atrophy is greater than expected for age related change. This may be related to the presence of advanced chronic small vessel ischemic change. US biopsy- Successful ultrasound-guided fine-needle aspiration biopsy of a left lobe hepatic mass EEG pending TTE- Normal LV chamber size with mild concentric LVH. * Normal LV systolic function, EF 60-65%. * No segmental left ventricular wall motion abnormalities are noted. * Grade I diastolic dysfunction. * Aortic valve sclerosis mild, without significant aortic valvular stenosis. NO ASD Impression 72 year old male with MS and 20 pound weight loss over 2 months Plan 1. MRI with no evidence of metastic disease\ 2. GI working up for adenocarcinoma looking for primary 3. correct lyte abnormalities 4. ammonia level -lactulose given 5. states patient is close to baseline currently 6. likely metabolic encephalopathy for combination of abnormal labs including CA elevation 7. folic acid, b 12 RPR ordered 8. EEG pending 9. TTE- no ASD once medical issues are resolved will see him in our office to further evaluate for MS issues- will sign off for now schedule 2-3 weeks after discharge from hospital or rehab with Dr Antonette Kirkpatrick or Antonette Olivo [facility], neurology I have seen and discussed above patient with Dr Antonette Kirkpatrick, neurology Pt seen and examined. He is currently mildly encepahlopathic. Based on provided hx it is possible that there is underlying dementia with superimposed encephalopathy, related to severe hypercalcemia and to a lesser extent hyperammonemia, which is improving. Given dx of adenoca, it was appropriate to perform MRI brain, which does not show evidence of mets. Pt should see us in follow-up for further assessment of cognition. MADONNA Kirkpatrick MD
[2017-10-04 15:39] VITALS: BP 117/74; PULSE 64; TEMP 36.5; O2SAT 95
--- NOTE | 2017-10-04 19:18 | Progress Note ---
Internal Med Progress Note Date of Service: Oct 04, 2017. Provider Documentation: SUBJECTIVE: Patient appeared to be more awake and alert today Able to tell me his first and last name that he is in the hospital No evidence of confusion or agitation Vitals remain stable OBJECTIVE: Vital Signs-as noted below Exam: General-more awake and alert today, no sign of any distress Eyes-mild icteric sclera. ENT-moist oral mucosa Neck-no JVD no carotid bruit, no thyromegaly noted Lungs-clear to auscultation no wheezes or rales Heart-regular S1-S2 Abdomen-soft, positive ascites, nontender, bowel sounds active Extremities-no lower extremity edema no rash or deformity noted Neuro-awake and alert oriented to place and person, has episode of confusion, no focal neurological deficit noted Lab data as noted below. ASSESSMENT & PLAN: 1.Metastatic malignancy/multiple liver masses Incidental finding in CT abdomen pelvis: Intrahepatic biliary ductal dilatation, limited to the left hepatic lobe raises concern for mild obstructive mass , multiple mass/suspicious nodule noted in the right hepatic lobe Tumor markers: AFP 3.7 within normal limits CEA Ag 3.5elevated CA 199 antigen: 403 significantly elevated (<34) Ultrasound-guided FNA of liver mass Initial pathology showed, atypical cells suspicious of malignancy Final final core pathology report: Adeno CA possible source GI tract Hematology oncology Dr. Friend updated 2. Confusion/metabolic encephalopathy -More awake and alert today -Multifactorial-possibly due to hypercalcemia, electrolyte derangement, elevated ammonia, with multiple liver metastases -Also concerned for possible alcohol withdrawal, -CT head/MRI of brain-shows no evidence of brain metastases -Continue supportive care, correction of electrolytes -Monitor neuro checks -Fall precaution -Discontinued benzodiazepine/avoid sedative and hypnotics 3. Hypercalcemia Due to malignancy Calcium level was elevated 15 on admission Improved after IV fluids, Given Zometa Calcium 7.6 today Continue to monitor labs. 4. Low mag low potassium and low phos: Due to poor p.o. intake/multiple bowel movement /GI loss with lactulose Replaced Follow daily labs 5. Hypertension BP stable 6. Significant weight loss/poor appetite: Per patient lost more than 20 pounds in last 3 months Final pathology shows adeno CA possible source GI tract GI team following scheduled for EGD tomorrow a.m. -Will need colonoscopic evaluation when when patient is more clinically stable Order for dietitian consult for nutrition supplement 7. Elevated lactic acid -Possible secondary to dehydration poor p.o. intake -Blood gas, lab work shows normal bicarb -Given IV fluids -Repeat lactic acid in afternoon within normal limits CODE STATUS: Full code DVT PROPHYLAXIS Moderate to high risk, metastatic malignancy Ordered for subcu Lovenox DISPOSITION To be determined. will need rehab for functional and cognitive decline family prefers [facility] service consulted for discharge planning Contact: Tonia Garcia son Curtis Garcia ( # [phone] ) Vital Signs: Date Time Temp Pulse Resp B/P (MAP) Pulse Ox O2 Delivery O2 Flow Rate FiO2 10/05/17 07:09 36.7 69 18 126/74 (91) 95 Room Air 10/05/17 00:00 Room Air 10/04/17 23:10 36.8 104 18 126/69 (88) 94 Room Air 10/04/17 16:35 Room Air 10/04/17 15:39 36.5 64 18 117/74 (88) 95 Room Air 10/04/17 12:43 88 98 Lab Results: Results Past 24 Hours Test 10/04/17 12:55 10/04/17 14:19 10/04/17 14:30 10/04/17 18:28 Range/Units Lactic Acid Level 2.7 2.0 0.4-2.0 mmol/L Procalcitonin 0.29 0-0.5 ng/ml Arterial Blood pH 7.47 7.35-7.45 Arterial Blood Partial Pressure CO2 29 35-46 mmHg Arterial Blood Partial Pressure O2 80 80-95 mm/Hg Arterial Blood HCO3 20 19-24 mmol/L Arterial Blood Oxygen Saturation 96.4 90-95 % Arterial Blood Base Excess -2.5 -9-1.8 mEq/L Arterial Blood Gas Delivery ROOM AIR Neal Test POS POS Urine Color DK YELLOW Urine Appearance CLEAR CLEAR Urine pH 6.5 4.5-7.5 Urine Specific [place] 1.017 1.000-1.030 Urine Protein 2+ NEG Urine Glucose (UA) 1+ NEG Urine Ketones NEG NEG Urine Occult Blood 1+ NEG Urine Nitrite NEG NEG Urine Bilirubin NEG NEG Urine Urobilinogen NEG NEG Urine Leukocyte Esterase NEG NEG Urine WBC (Auto) 10-30 0-5 /hpf Urine RBC (Auto) 5-10 0-4 /hpf Urine Hyaline Casts (Auto) 10-30 0-5 /lpf Urine Epithelial Cells (Auto) >30 0-5 /lpf Urine Bacteria (Auto) NEG NEG Urine Renal Epithelial Cells 0-5 /lpf Urine Yeast (Auto) NONE PRSENT Test 10/05/17 08:07 Range/Units Sodium Level 141 136-145 mmol/L Potassium Level 3.4 3.5-5.1 mmol/L Chloride Level 115 98-107 mmol/L Carbon Dioxide Level 19 21-32 mmol/L Anion Gap 7.0 3-11 mmol/L Blood Urea Nitrogen 9 7-18 mg/dl Creatinine 0.83 0.60-1.40 mg/dl Est Creatinine Clear Calc Drug Dose 83.9 ml/min Estimated GFR () 101.9 Estimated GFR (Non- 87.9 BUN/Creatinine Ratio 10.8 10-20 Random Glucose 87 70-99 mg/dl Lactic Acid Level 1.2 0.4-2.0 mmol/L Calcium Level 7.4 8.5-10.1 mg/dl Phosphorus Level 1.2 2.5-4.9 mg/dl Magnesium Level 1.6 1.8-2.4 mg/dl Total Bilirubin 1.2 0.2-1 mg/dl Direct Bilirubin 0.4 0-0.2 mg/dl Aspartate Amino Transf (AST/SGOT) 77 15-37 U/L Alanine Aminotransferase (ALT/SGPT) 46 12-78 U/L Alkaline Phosphatase 286 45-117 U/L Ammonia 52.4 11-32 umol/L Total Protein 6.7 6.4-8.2 gm/dl Albumin 2.2 3.4-5.0 gm/dl Globulin 4.5 2.5-4.0 gm/dl Albumin/Globulin Ratio 0.5 0.9-2 Vitamin B12 Level 1612 211-911 pg/mL Folate 13.37 >5.38 ng/mL Microbiology Results 10/04/17 Blood Culture, Received Pending 10/04/17 Blood Culture, Received Pending 10/04/17 Urine Culture, Received Pending
[2017-10-04 23:10] VITALS: BP 126/69; PULSE 104; TEMP 36.8; O2SAT 94
[2017-10-05 07:09] VITALS: BP 126/74; PULSE 69; TEMP 36.7; O2SAT 95
[2017-10-05 08:15] VITALS: O2SAT 95
[2017-10-05] MEDS: FoLIC ACID INJ 1 MG in SYRINGE 9.8 ML IV SCH (08:43)
[2017-10-05] MEDS: AMLODIPINE BESYLATE 5 MG TAB PO SCH (08:43)
[2017-10-05] MEDS: RIFAXIMIN TAB 550 MG TAB PO SCH ×2 (08:43→21:00)
[2017-10-05] MEDS: MULTIVITAMINS W/MINERALS 15ML UDP PO SCH (08:44)
[2017-10-05] MEDS: THIAMINE HCL INJ 100 MG in SYRINGE 9 ML IV SCH (08:44)
[2017-10-05] MEDS: ENOXAPARIN 30 MG/0.3 ML SYR SQ SCH (08:45)
[2017-10-05] MEDS: LIDODERM (LIDOCAINE) PATCH 5% TD SCH ×2 (08:45→15:43)
[2017-10-05 08:57] LABS: ALBUMIN 2.2 gm/dl (3.4-5.0); CALCIUM 7.4 mg/dl (8.5-10.1); CREATININE 0.83 mg/dl (0.60-1.40); POTASSIUM 3.4 mmol/L (3.5-5.1)
[2017-10-05 09:12] LABS: PHOSPHORUS 1.2 mg/dl (2.5-4.9); TOTAL PROTEIN 6.7 gm/dl (6.4-8.2)
[2017-10-05] MEDS ORDERED: HYDROCORTISONE HC 2.5% CRM 30GM TUBE EXT PRN (09:45)
--- NOTE | 2017-10-05 09:50 | Gastroenterology Progress Note ---
Progress Note Date of Service: Oct 05, 2017 Subjective Pt evaluation today including: conversation w/ patient, physical exam, chart review, lab review Pt was seen and evaluated, chart reviewed. Is NPO for EGD today. Pt reported epigastric burning and heart burn to nursing this AM w/ diarrhea. Per PROCUREMENT AGENT staff , this stool was liquid and black. Did not appear sticky. No BRBPR. He is more alert today, answering questions appropriately and oriented x 3. Denies fever, chills, CP, SOB. Review of Systems Constitutional: + weakness, + fatigue, No fever, No chills Respiratory: No cough, No shortness of breath Cardiac: No chest pain, No edema Abdomen: + pain, + diarrhea, No nausea, No vomiting, No constipation, No GI bleeding Medications Current Inpatient Medications Medications (Trade) Dose Ordered Sig/Van Route Start Time Stop Time Status Last Admin Dose Admin Ondansetron HCl (Zofran Inj) 4 mg Q6H PRN IV 09/27/17 13:45 10/27/17 13:44 10/01/17 17:09 4 MG Polyethylene (Miralax Powder Packet) 17 gm DAILY PRN PO 09/27/17 13:45 10/27/17 13:44 Amlodipine Besylate (Norvasc Tab) 10 mg DAILY PO 09/28/17 09:00 10/28/17 08:59 10/05/17 08:43 10 MG Acetaminophen 650 mg/Empty Bag 65 ml @ 260 mls/hr Q6H PRN IV 09/29/17 20:15 10/29/17 20:14 10/04/17 00:45 260 MLS/HR Thiamine HCl 100 mg/Syringe 10 ml @ 2 mls/min QAM IV 09/30/17 11:00 10/30/17 10:59 10/05/17 08:44 2 MLS/MIN Folic Acid 1 mg/ Syringe 10 ml @ 5 mls/min QAM IV 09/30/17 11:00 10/30/17 10:59 10/05/17 08:43 5 MLS/MIN Multivitamins Therapeutic (Cerovite Liquid) 15 ml QAM PO 09/30/17 11:00 10/30/17 10:59 10/04/17 08:53 15 ML Rifaximin (Xifaxan Tab) 550 mg BID PO 10/01/17 11:00 10/31/17 10:59 10/05/17 08:43 550 MG Potassium Chloride/Dextrose/ Sod Cl 1,000 ml @ 100 mls/hr Q10H IV 10/01/17 11:30 10/29/17 11:29 10/04/17 23:51 100 MLS/HR Miconazole Nitrate (Desenex Powder) 1 appln PRN PRN EXT 10/01/17 19:00 10/31/17 18:59 Lactulose (Chronulac Syrup) 30 gm BID PO 10/03/17 21:00 11/02/17 20:59 Future Hold 10/04/17 10:04 30 GM Lidocaine (Lidoderm Patch 5%) 1 patch QAM TD 10/03/17 15:15 11/02/17 15:14 10/03/17 17:04 1 PATCH Miscellaneous (Remove Lidoderm Patch) 1 ea DAILY@21 N/A 10/03/17 21:00 11/02/17 20:59 10/04/17 20:42 1 EA Enoxaparin Sodium (Lovenox Inj) 30 mg QAM SQ 10/04/17 09:00 11/03/17 08:59 Hydrocortisone (Proctozone Hc 2.5% Crm) 1 appln NOW ONCE EXT 10/05/17 09:45 10/05/17 09:46 UNV Hydrocortisone (Proctozone Hc 2.5% Crm) 1 appln Q12 PRN EXT 10/05/17 09:45 11/04/17 09:44 UNV Objective Vital Signs Date Time Temp Pulse Resp B/P (MAP) Pulse Ox O2 Delivery O2 Flow Rate FiO2 10/05/17 07:09 36.7 69 18 126/74 (91) 95 Room Air 10/05/17 00:00 Room Air 10/04/17 23:10 36.8 104 18 126/69 (88) 94 Room Air 10/04/17 16:35 Room Air 10/04/17 15:39 36.5 64 18 117/74 (88) 95 Room Air 10/04/17 12:43 88 98 Physical Exam General Appearance: no apparent distress Eyes: PERRL ENT: hearing grossly normal Neck: supple Respiratory/Chest: lungs clear Cardiovascular: regular rate, rhythm, no gallop, no JVD Abdomen: soft, no organomegaly, no pulsatile mass, + tenderness (new epigastric tenderness w/ palpation) Neurologic/Psych: alert, normal mood/affect, oriented x 3 Skin: normal color Laboratory Results Last 24 Hours Test 10/04/17 12:55 10/04/17 14:19 10/04/17 14:30 10/04/17 18:28 Lactic Acid Level 2.7 mmol/L 2.0 mmol/L Procalcitonin 0.29 ng/ml Arterial Blood pH 7.47 Arterial Blood Partial Pressure CO2 29 mmHg Arterial Blood Partial Pressure O2 80 mm/Hg Arterial Blood HCO3 20 mmol/L Arterial Blood Oxygen Saturation 96.4 % Arterial Blood Base Excess -2.5 mEq/L Arterial Blood Gas Delivery ROOM AIR Neal Test POS Urine Color DK YELLOW Urine Appearance CLEAR Urine pH 6.5 Urine Specific [place] 1.017 Urine Protein 2+ Urine Glucose (UA) 1+ Urine Ketones NEG Urine Occult Blood 1+ Urine Nitrite NEG Urine Bilirubin NEG Urine Urobilinogen NEG Urine Leukocyte Esterase NEG Urine WBC (Auto) 10-30 /hpf Urine RBC (Auto) 5-10 /hpf Urine Hyaline Casts (Auto) 10-30 /lpf Urine Epithelial Cells (Auto) >30 /lpf Urine Bacteria (Auto) NEG Urine Renal Epithelial Cells /lpf Urine Yeast (Auto) Test 10/05/17 08:07 Sodium Level 141 mmol/L Potassium Level 3.4 mmol/L Chloride Level 115 mmol/L Carbon Dioxide Level 19 mmol/L Anion Gap 7.0 mmol/L Blood Urea Nitrogen 9 mg/dl Creatinine 0.83 mg/dl Est Creatinine Clear Calc Drug Dose 83.9 ml/min Estimated GFR () 101.9 Estimated GFR (Non- 87.9 BUN/Creatinine Ratio 10.8 Random Glucose 87 mg/dl Lactic Acid Level 1.2 mmol/L Calcium Level 7.4 mg/dl Phosphorus Level 1.2 mg/dl Magnesium Level 1.6 mg/dl Total Bilirubin 1.2 mg/dl Direct Bilirubin 0.4 mg/dl Aspartate Amino Transf (AST/SGOT) 77 U/L Alanine Aminotransferase (ALT/SGPT) 46 U/L Alkaline Phosphatase 286 U/L Ammonia 52.4 umol/L Total Protein 6.7 gm/dl Albumin 2.2 gm/dl Globulin 4.5 gm/dl Albumin/Globulin Ratio 0.5 Vitamin B12 Level 1612 pg/mL Folate 13.37 ng/mL Assessment and Plan Patient is a 72 year old male w/ weight loss of 20 lbs, fatigue, weakness, intermittent abdominal pain w/ fullness and decreased appetite who presented to PCP for symptoms - was sent to ED for abnormal calcium level CT concerning for metastatic hepatic disease w/ question of larger lesion in left hilum w/ ductal dilation. He has a history of daily ETOH use, mildly elevated LFTs dating back to 2013. His abdominal exam is benign, but can have intermittent upper abd pain and fullness at times. His liver biopsy returned w/ metastatic adenocarcinoma, unknown primary. His lactic acid is elevated, repeat cultures are pending. Today, he is alert oriented x 3 and answering questions appropriately. Is NPO for EGD today. This AM while ambulating to reported epigastric burning and heart burn to nursing staff, this is new. Also noted a dark black liquid stool - NPO - EGD today - IV PPI BID - ETOH withdrawal protocol - Liver biopsy w/ metastatic adenocarcinoma carcinoma - Will need to rule out GI tract primary - Appreciate heme/onc recommendations - Will arrange colonoscopy when pt is medically stable and able to adequately prep for a colonoscopy. Attg add: I interviewed and examined pt, reviewed chart and labs. Exam unchanged from prior. EGD today. GI to follow, please call with any questions or concerns.
[2017-10-05] MEDS ORDERED: PANTOprazole INJ 40 MG in SYRINGE 0 ML IV SCH (10:00)
[2017-10-05] MEDS ORDERED: HYDROCORTISONE HC 2.5% CRM 30GM TUBE EXT ONE (10:00)
[2017-10-05] MEDS: D5NSS + 20MEQ KCL 1,000 ML IV SCH (10:45)
--- NOTE | 2017-10-05 14:38 | GI REPORT ---
Procedure Date: 10/05/2017 2:05 PM Procedure: Upper GI endoscopy Indications: Abnormal CT of the GI tract; carcinoma of unknown primary Medicines: See the Anesthesia note for documentation of the administered medications Complications: No immediate complications. Estimated Blood Loss: Estimated blood loss: none. Procedure: Pre-Anesthesia Assessment: - ASA Grade Assessment: III - A patient with severe systemic disease. After obtaining informed consent, the endoscope was passed under direct vision. Throughout the procedure, the patient's blood pressure, pulse, and oxygen saturations were monitored continuously. The scope was introduced through the mouth, and advanced to the second part of duodenum. The upper GI endoscopy was accomplished without difficulty. The patient tolerated the procedure well. Findings: There were mild rings in the lower esophagus. The GE junction was at 40 cm. There was a large flat indurated ulcer with flat pigmented spot at the GE junction. There was mild mucosal nodularity at the borders of the ulcer. This was best seen in the forward view. There was a ring associated with the ulcer causing luminal narrowing; there was mild resistance to passage of the adult endoscope. There was an opening just proximal to the GE junction and adjacent to this ulcer, that may represent a fistula or diverticulum. Small submucosal nodule in antrum, soft to probing with forceps. This was likely a lipoma. Otherwise, the stomach and duodenum were normal. The ampulla was normal. The ulcer was brushed, and the edges of the ulcer were biopsied. Impression: Esophageal ulcer. Recommendation: - Discharge patient to floor. Follow up pathology results. Becca Ahn M.D. Becca Ahn MD 10/05/2017 2:37:40 PM This report has been signed electronically. Note Initiated On: 10/05/2017 2:05 PM I attest to the content of the Intraoperative Record and orders documented therein, exceptions below
[2017-10-05] MEDS ORDERED: PROPOFOL IV EMULSION 10 MG/ML 20 ML VIAL IV ONE (14:41)
[2017-10-05] MEDS ORDERED: LIDOCAINE HCL 2% 2 ML VIAL (20MG/ML) ONE (14:41)
--- NOTE | 2017-10-05 15:13 | Anesthesiology Progress Note ---
Anesthesia Post Op Note Date & Time Oct 05, 2017 at 15:13 Vital Signs Pain Intensity: 0.0 Vital Signs Past 12 Hours Date Time Temp Pulse Resp B/P (MAP) Pulse Ox O2 Delivery O2 Flow Rate FiO2 10/05/17 15:09 61 20 130/77 (94) 95 Room Air 10/05/17 14:55 67 20 123/77 (92) 96 Room Air 10/05/17 14:37 36.7 66 20 136/63 (87) 97 Room Air 10/05/17 13:23 36.7 67 18 114/66 (82) 94 Room Air 10/05/17 08:15 95 Room Air 10/05/17 07:09 36.7 69 18 126/74 (91) 95 Room Air Notes Mental Status: alert / awake / arousable, participated in evaluation Nausea / Vomiting: adequately controlled Pain: adequately controlled Airway Patency, RR, SpO2: stable & adequate BP & HR: stable & adequate Hydration State: stable & adequate Anesthetic Complications: no major complications apparent
[2017-10-05 15:30] VITALS: BP 115/73; PULSE 65; TEMP 36.4; O2SAT 96
[2017-10-05] MEDS ORDERED: LAVAGE SOLUTION 4000ML PO SCH (15:30)
--- NOTE | 2017-10-05 15:46 | ELECTROENCEPHALOGRAPH REPORT ---
CLINICAL DIAGNOSIS: Hypercalcemia, hyperammonemia, hepatic failure, metastatic carcinoma in the liver and confusion. EEG DIAGNOSIS: Mildly to moderately diffusely abnormal EEG during wakefulness. DESCRIPTION OF TRACING: This EEG was done as a bedside recording with a simultaneous video analysis of patient movement and behavior. No activation procedures were performed. The patient was somewhat agitated, moving, there was a lot of head rolling artifact but once these activities ceased there were intervals of time when the tracing was interpretable and artifact free. Under these conditions, the background rhythm is in the theta range of about 7-8 Hz of maximum frequency and of up to 40 microvolts of maximum amplitude. This is maximum in the posterior head regions and this is bilaterally symmetrical. Polymorphic mid to lower frequency modest amplitude theta activity intermixed with isolated waveforms in the delta range is seen over all head regions maximum in the central regions without any focal or regional predominance. Anterior head region maximum bilaterally symmetrical low voltage fast activity in the beta range is likely present but is obscured at times with the muscle and movement artifacts. At no time during the waking tracing is there evidence for clearcut potentially epileptogenic activity in the form of polyspike or spike wave bursts, focal sharp waves or focal spikes and in light of the hepatic failure there is no evidence for triphasic waves at least during the portion of this recording that were interpretable. INTERPRETATION: Overall then this EEG is consistent with a mild nonspecific generalized encephalopathy and is certainly consistent with the underlying toxic or metabolic abnormalities present clinically in this case. There are no associated epileptiform discharges and no triphasic waves.
[2017-10-05 16:00] VITALS: BP 122/72; PULSE 66; TEMP 36.3; O2SAT 96
[2017-10-05 18:04] VITALS: BP 120/69; PULSE 64; TEMP 36.6; O2SAT 97
[2017-10-05] MEDS ORDERED: ALUMINUM/MAGNESIUM/SIMETH (MAALOX MAX) 30 ML UDC PO PRN (18:30)
--- NOTE | 2017-10-05 19:08 | Progress Note ---
Internal Med Progress Note Date of Service: Oct 05, 2017. Provider Documentation: SUBJECTIVE: Awake and alert, conversing appropriately Status post EGD earlier today Does not want any more testing including colonoscopy Adamant to be discharged home today Patient is counseled No further testing or procedure will be done during this hospital stay Will need to continue PT OT to improve balance/mobility OBJECTIVE: Vital Signs-as noted below Exam: General-awake and alert, found to be very impulsive, angry-wants to be discharged home as soon as possible Eyes-mild icteric sclera. ENT-moist oral mucosa Neck-no JVD no carotid bruit, no thyromegaly noted Lungs-clear to auscultation no wheezes or rales Heart-regular S1-S2 Abdomen-soft, positive ascites, nontender, bowel sounds active Extremities-no lower extremity edema no rash or deformity noted Neuro-awake and alert oriented to place person, generalized weakness, no focal neurological deficit noted ASSESSMENT & PLAN: 1.Metastatic malignancy/multiple liver masses CT abdomen pelvis Intrahepatic biliary ductal dilatation, limited to the left hepatic lobe raises concern for mild obstructive mass , multiple mass/suspicious nodule noted in the right hepatic lobe Tumor markers: AFP 3.7 within normal limits CEA Ag 3.5elevated CA 199 antigen: 403 significantly elevated (<34) Ultrasound-guided FNA of liver mass Initial pathology showed, atypical cells suspicious of malignancy Final final core pathology report: [place] CA possible source GI tract Appreciate input from GI Status post EGD today Showed large flat indurated ulcer at the GE junction. There was mild mucosal nodularity at the borders of the ulcer The ulcer was brushed Prelim results of brush shows benign cells Biopsy from the edges of ulcer obtaining report pending -Patient's son and updated regarding the EGD report - Patient refused to have any further testing done does not want a colonoscopy 2. Confusion/metabolic encephalopathy -Resolved, mental status improved approximate baseline -Multifactorial-possibly due to hypercalcemia, electrolyte derangement, elevated ammonia, with multiple liver metastases -Also concerned for possible alcohol withdrawal, -CT head/MRI of brain-shows no evidence of brain metastases -Avoid benzodiazepine/avoid sedative and hypnotics 3. Hypercalcemia Due to malignancy Calcium level was elevated 15 on admission Improved after IV fluids, Given Zometa Calcium 7.6 4. Low mag low potassium and low phos: Due to poor p.o. intake/multiple bowel movement /GI loss with lactulose Replaced Follow daily labs 5. Hypertension BP stable 6. Significant weight loss/poor appetite: Per patient lost more than 20 pounds in last 3 months Final pathology shows adeno CA possible source GI tract EGD finding as above, patient refused colonoscopy Order for dietitian consult for nutrition supplement CODE STATUS: Full code DVT PROPHYLAXIS Moderate to high risk, metastatic malignancy Ordered for subcu Lovenox DISPOSITION will benefit which we have rehab for functional and cognitive decline Referral made [facility] Social service consulted for discharge planning Contact: Tonia Garcia son Curtis Garcia ( # [phone] ) Vital Signs: Date Time Temp Pulse Resp B/P (MAP) Pulse Ox O2 Delivery O2 Flow Rate FiO2 10/06/17 08:00 Room Air 10/06/17 00:00 Room Air 10/05/17 18:04 36.6 64 22 120/69 (86) 97 Room Air 10/05/17 17:32 Room Air 10/05/17 16:00 36.3 66 20 122/72 (89) 96 Room Air 10/05/17 15:30 36.4 65 20 115/73 (87) 96 Room Air 10/05/17 15:09 61 20 130/77 (94) 95 Room Air 10/05/17 14:55 67 20 123/77 (92) 96 Room Air 10/05/17 14:37 36.7 66 20 136/63 (87) 97 Room Air 10/05/17 13:23 36.7 67 18 114/66 (82) 94 Room Air Lab Results: Results Past 24 Hours Test 10/06/17 06:55 Range/Units Sodium Level 139 136-145 mmol/L Potassium Level 3.1 3.5-5.1 mmol/L Chloride Level 112 98-107 mmol/L Carbon Dioxide Level 17 21-32 mmol/L Anion Gap 10.0 3-11 mmol/L Blood Urea Nitrogen 10 7-18 mg/dl Creatinine 0.84 0.60-1.40 mg/dl Est Creatinine Clear Calc Drug Dose 82.9 ml/min Estimated GFR () 101.4 Estimated GFR (Non- 87.5 BUN/Creatinine Ratio 11.9 10-20 Random Glucose 85 70-99 mg/dl Calcium Level 7.6 8.5-10.1 mg/dl Phosphorus Level 1.3 2.5-4.9 mg/dl Magnesium Level 1.6 1.8-2.4 mg/dl Total Bilirubin 1.4 0.2-1 mg/dl Direct Bilirubin 0.5 0-0.2 mg/dl Aspartate Amino Transf (AST/SGOT) 75 15-37 U/L Alanine Aminotransferase (ALT/SGPT) 46 12-78 U/L Alkaline Phosphatase 286 45-117 U/L Total Protein 6.8 6.4-8.2 gm/dl Albumin 2.3 3.4-5.0 gm/dl Globulin 4.5 2.5-4.0 gm/dl Albumin/Globulin Ratio 0.5 0.9-2
[2017-10-05] MEDS ORDERED: BOOST BREEZE NUTRITION DRINK 1 BOX PO SCH (19:30)
[2017-10-05] MEDS ORDERED: NURSING VERBAL MED ORDER ONE (19:45)
[2017-10-05] MEDS ORDERED: BOOST PLUS VANILLA ONE (20:34)
[2017-10-05] MEDS: BOOST PLUS VANILLA PO SCH (21:00)
[2017-10-05] MEDS ORDERED: PANTOprazole SOD 40 MG TAB PO SCH (21:00)
[2017-10-05] MEDS: PANTOprazole SOD 40 MG TAB PO SCH (21:00)
[2017-10-06] MEDS ORDERED: ACETAMINOPHEN 325 MG TAB PO PRN (04:15)
[2017-10-06 08:30] LABS: ALBUMIN 2.3 gm/dl (3.4-5.0); CALCIUM 7.6 mg/dl (8.5-10.1); CREATININE 0.84 mg/dl (0.60-1.40); POTASSIUM 3.1 mmol/L (3.5-5.1)
[2017-10-06 08:41] LABS: PHOSPHORUS 1.3 mg/dl (2.5-4.9); TOTAL PROTEIN 6.8 gm/dl (6.4-8.2)
[2017-10-06] MEDS: RIFAXIMIN TAB 550 MG TAB PO SCH (08:55)
[2017-10-06] MEDS: PANTOprazole SOD 40 MG TAB PO SCH (08:55)
[2017-10-06] MEDS: AMLODIPINE BESYLATE 5 MG TAB PO SCH (08:56)
[2017-10-06] MEDS: MULTIVITAMINS W/MINERALS 15ML UDP PO SCH (08:57)
[2017-10-06] MEDS: ENOXAPARIN 30 MG/0.3 ML SYR SQ SCH (08:59)
[2017-10-06] MEDS ORDERED: THIAMINE HCL 100 MG TAB PO SCH (09:00)
[2017-10-06] MEDS: BOOST PLUS VANILLA PO SCH (09:00)
[2017-10-06] MEDS ORDERED: POTASSIUM CHLORIDE 10 MEQ TABCR PO ONE (09:45)
--- NOTE | 2017-10-06 09:53 | Progress Note ---
Progress Note Date of Service Oct 06, 2017. Progress Note Pt was seen, chart reviewed. OOB in chair, just finished breakfast. Feels well. No complaints. Alert and oriented x 3. Verbalizes understanding on what is going on. Wishes to defer any additional work up at this time. No fever, chills , CP, SOB, abd pain, nausea, vomiting. ETOH: 3-4 beers daily x 20 years Tobacco: past use Colonoscopy: years ago, per pt WNL EGD 10/05/17: esophageal ulcer, pathology pending, brushing negative US Guided Bx 09/29/17: metastatic adenocarcinoma, unknown primary Liver US 09/27/17: Technically limited study Diffusely heterogeneous hepatic echotexture. The discrete masses identified on the CT scan are difficult to discern ultrasonographically Cholelithiasis and gallbladder wall thickening. 5 mm [address] bile duct Ct Chest 09/27/17: Minimally enlarged mediastinal lymph nodes 5 mm right middle lobe pulmonary nodule, and 6 mm lingular pulmonary noduleSuspected underlying interstitial lung disease with subpleural reticulation. Multiple hepatic masses suspicious for metastatic disease CT ABD/Pelvis 09/27/17: Intrahepatic biliary ductal dilatation limited to the left hepatic lobe raises concern for an obstructing mass at the level of the left aspect of the liver hilum. Given the presence of multiple suspicious lesions throughout the right hepatic lobe, which are concerning for metastases, the primary differential consideration is cholangiocarcinoma with hepatic spread. Differential considerations include an extrahepatic primary with diffuse livermetastases and secondary obstruction of the left hepatic ducts due to metastaticlesions. However, no extrahepatic malignancy is evident on this noncontrast CT.Ultrasound of the liver is recommended for potential fine-needle biopsy fortissue sampling.Upper abdominal lymphadenopathy. Extensive reticular opacities at the lung bases with subtle bronchiectasis could suggest underlying fibrotic lung disease such as nonspecific interstitiapneumonitis, chronic aspiration, or smoking related lung injury. The report will be called/faxed according to standard departmental protocol. 72 year old male w/ weight loss of 20 lbs, fatigue, weakness, intermittent abdominal pain w/ fullness and decreased appetite who presented to PCP for symptoms - was sent to ED for abnormal calcium level CT concerning for metastatic hepatic disease w/ question of larger lesion in left hilum w/ ductal dilation. He has a history of daily ETOH use, mildly elevated LFTs dating back to 2013. His abdominal exam is benign, but can have intermittent upper abd pain and fullness at times. His liver biopsy returned w/ metastatic adenocarcinoma, unknown primary. EGD w/ esophageal ulcer, biopsies pending. Pt defers additional work up. GI to sign off, please call with any questions, concerns or if pt is interested in pursing additional endoscopic evaluation.
[2017-10-06] MEDS ORDERED: MAGNESIUM OXIDE 400 MG TAB PO SCH (10:00)
[2017-10-06] MEDS ORDERED: MAGNESIUM SULFATE 1GM / D5W 1 GM in PREMIXED IN D5W 100 ML IV ONE (10:00)
[2017-10-06] MEDS: POT PHOSPHATE MONOBASIC W/ SOD TAB PO SCH ×2 (10:28→11:57)
--- NOTE | 2017-10-06 11:32 | Progress Note ---
Internal Med Progress Note Date of Service: Oct 06, 2017. Provider Documentation: SUBJECTIVE: Patient is awake and alert, able to have conversation appropriately Had an uneventful night Able to be out of bed with minimum assistance Ambulated in room with walker, no loss of balance noted Patient is very eager to go home No evidence of confusion noted Appetite remains poor OBJECTIVE: Vital Signs-as noted below Exam: General-awake and alert, comfortable Eyes-mild icteric sclera. ENT-moist oral mucosa Neck-no JVD no carotid bruit, no thyromegaly noted Lungs-clear to auscultation no wheezes or rales Heart-regular S1-S2 Abdomen-soft, positive ascites, nontender, bowel sounds active Extremities-no lower extremity edema no rash or deformity noted Neuro-awake and alert 3, no focal neurological deficit noted ASSESSMENT & PLAN: 1.Metastatic malignancy/multiple liver masses/possible GI source CT abdomen pelvis Intrahepatic biliary ductal dilatation, limited to the left hepatic lobe raises concern for mild obstructive mass , multiple mass/suspicious nodule noted in the right hepatic lobe Tumor markers: AFP 3.7 within normal limits CEA elevated CA 19-9 antigen: 403 significantly elevated (<34) Ultrasound-guided FNA of liver mass done Initial pathology showed, atypical cells suspicious of malignancy Final final core pathology report: [place] CA possible source GI tract Appreciate input from GI Status post EGD : Showed large flat indurated ulcer at the GE junction. There was mild mucosal nodularity at the borders of the ulcer The ulcer was brushed Prelim results of brush shows benign cells Biopsy from the edges of ulcer obtained Pathology report pending -Patient does not want any further testing including colonoscopy -Agreeable to have formal consult with Dr. Friend hematology oncology in office 2. Confusion/metabolic encephalopathy -Resolved mental status improved to baseline -Episode of confusion was Multifactorial-possibly due to hypercalcemia, electrolyte derangement, elevated ammonia, with multiple liver metastases -CT head/MRI of brain-shows no evidence of brain metastases -Avoid benzodiazepine/avoid sedative and hypnotics 3. Hypercalcemia Due to malignancy Calcium level was elevated 15 on admission Improved after IV fluids, Given Zometa Calcium 7.6 - Remained stable 4. Low mag low potassium and low phos: Due to poor p.o. intake Replaced -Patient will be discharged with oral supplement -Outpatient lab check in 1 week 5. Significant weight loss/poor appetite: -Possible due to malignancy Per patient lost more than 20 pounds in last 3 months Final pathology shows adeno CA possible source GI tract EGD finding as above, patient refused colonoscopy dietitian consulted for nutrition supplement-appreciate input CODE STATUS: Full code DVT PROPHYLAXIS Moderate to high risk, metastatic malignancy subcu Lovenox DISPOSITION: Had significant decline prior secondary to confusion/encephalopathy Patient has improved significantly about cognitive status and functional/ mobility Repeat PT OT eval requested pt is very eager to return home Willing for home health/ home physical therapy 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 Nain Whitmore Hematology oncology follow-up with Dr. Friend Contact: Tonia Garcia son Curtis Garcia ( # [phone] ) Vital Signs: Date Time Temp Pulse Resp B/P (MAP) Pulse Ox O2 Delivery O2 Flow Rate FiO2 10/06/17 08:00 Room Air 10/06/17 00:00 Room Air 10/05/17 18:04 36.6 64 22 120/69 (86) 97 Room Air 10/05/17 17:32 Room Air 10/05/17 16:00 36.3 66 20 122/72 (89) 96 Room Air 10/05/17 15:30 36.4 65 20 115/73 (87) 96 Room Air 10/05/17 15:09 61 20 130/77 (94) 95 Room Air 10/05/17 14:55 67 20 123/77 (92) 96 Room Air 10/05/17 14:37 36.7 66 20 136/63 (87) 97 Room Air 10/05/17 13:23 36.7 67 18 114/66 (82) 94 Room Air Lab Results: Results Past 24 Hours Test 10/06/17 06:55 Range/Units Sodium Level 139 136-145 mmol/L Potassium Level 3.1 3.5-5.1 mmol/L Chloride Level 112 98-107 mmol/L Carbon Dioxide Level 17 21-32 mmol/L Anion Gap 10.0 3-11 mmol/L Blood Urea Nitrogen 10 7-18 mg/dl Creatinine 0.84 0.60-1.40 mg/dl Est Creatinine Clear Calc Drug Dose 82.9 ml/min Estimated GFR () 101.4 Estimated GFR (Non- 87.5 BUN/Creatinine Ratio 11.9 10-20 Random Glucose 85 70-99 mg/dl Calcium Level 7.6 8.5-10.1 mg/dl Phosphorus Level 1.3 2.5-4.9 mg/dl Magnesium Level 1.6 1.8-2.4 mg/dl Total Bilirubin 1.4 0.2-1 mg/dl Direct Bilirubin 0.5 0-0.2 mg/dl Aspartate Amino Transf (AST/SGOT) 75 15-37 U/L Alanine Aminotransferase (ALT/SGPT) 46 12-78 U/L Alkaline Phosphatase 286 45-117 U/L Total Protein 6.8 6.4-8.2 gm/dl Albumin 2.3 3.4-5.0 gm/dl Globulin 4.5 2.5-4.0 gm/dl Albumin/Globulin Ratio 0.5 0.9-2
[2017-10-06] MEDS ORDERED: NUTR-977 PO (11:37)
[2017-10-06] MEDS ORDERED: FLV1 PO (11:37)
[2017-10-06] MEDS ORDERED: POTTAB2 PO (11:37)
[2017-10-06] MEDS ORDERED: THM100 PO (11:37)
[2017-10-06] MEDS ORDERED: MCRK20 PO (11:37)
[2017-10-06] MEDS ORDERED: MGNO400 PO (11:37)
[2017-10-06] MEDS ORDERED: XFX550 PO (11:37)
[2017-10-06] MEDS ORDERED: OMEP20TA PO (11:38)
--- NOTE | 2017-10-06 11:48 | Discharge Instructions ---
Discharge Instructions Date of Service Oct 06, 2017. Admission Reason for Admission: Hypercalcemia, Unintentional Weight Loss Discharge Discharge Diagnosis / Problem: LIVER MASS /METASTATIC MALIGNANCY Discharge Goals Goal(s): Increase independence, Improve disease control, Diagnostic testing, Therapeutic intervention Activity Recommendations Activity Limitations: resume your previous activity . Instructions / Follow-Up Instructions / Follow-Up HOSPITAL FOLLOW UP : 10/11/2017 1:20 PM Nain Hoff DO [facility] LAB WORK : BASIC METABOLIC PANEL , LIVER FUNCTION TEST, MG /PHOS LEVEL ON 10/11/17 HEMATOLOGY /ONCOLOGY FOLLOW UP WITH DR SHEILA NAVARRETE IN 2-3 WEEK, OFFICE WILL CALL WITH APPOINTMENT Current Hospital Diet Patient's current hospital diet: Regular Diet Discharge Diet Recommended Diet: Regular Diet Procedures Procedures Performed: BX AND BRUSHING on 10/05/2017 Pending Studies Studies pending at discharge: yes List of pending studies: Pathology report of the lower esophagus and stomach Please follow-up with Dr. Navarrete for the result. Medical Emergencies . Who to Call and When: Medical Emergencies: If at any time you feel your situation is an emergency, please call 911 immediately. . Non-Emergent Contact Non-Emergency issues call your: Primary Care Provider . . "Provider Documentation" section prepared by Lyndsay Castelan. .
[2017-10-06 12:26] VITALS: BP 120/69; PULSE 64; TEMP 36.6; O2SAT 97
--- NOTE | 2017-10-06 12:50 | Discharge Summary ---
Discharge Summary Date of Service Oct 06, 2017. Discharge Summary Admission Date: Sep 27, 2017 at 13:43 Discharge Date: Oct 06, 2017 Discharge Disposition: Home with services Principal Diagnosis: LIVER MASS /METASTATIC MALIGNANCY Procedures: EGD: Procedures Performed: BIOPSY /EGD BX AND BRUSHING on 10/05/2017 CT ABDOMEN/PELVIS WITH CONTRAST : IMPRESSION: 1. Intrahepatic biliary ductal dilatation limited to the left hepatic lobe raises concern for an obstructing mass at the level of the left aspect of the liver hilum. Given the presence of multiple suspicious lesions throughout the right hepatic lobe, which are concerning for metastases, the primary differential consideration is cholangiocarcinoma with hepatic spread. Differential considerations include an extrahepatic primary with diffuse liver metastases and secondary obstruction of the left hepatic ducts due to metastatic lesions. However, no extrahepatic malignancy is evident on this noncontrast CT. Ultrasound of the liver is recommended for potential fine-needle biopsy for tissue sampling. 2. Upper abdominal lymphadenopathy. 3. Extensive reticular opacities at the lung bases with subtle bronchiectasis could suggest underlying fibrotic lung disease such as nonspecific interstitial pneumonitis, chronic aspiration, or smoking related lung injury. BONE SCAN : IMPRESSION: 1. No evidence of skeletal metastatic disease. 2. Increased renal uptake which can be seen in the setting of hypercalcemia. 3. Faint upper abdominal soft tissue uptake which may reflect uptake within one of the hepatic lesions shown on prior CT. Consultations: Yulissa ROTH Heme onc Medication Reconciliation New Medications: Omeprazole (Omeprazole) 20 Mg Tab 1 TAB PO BID for 30 Days, #60 TAB 1 Refill Enteral Nutrition Formula (Ensure Plus Vanilla) 1 Can Liqd 1 CAN PO TID for 30 Days, #90 BOX 3 Refills Folic Acid (Folic Acid) 1 Mg Tab 1 MG PO QAM for 30 Days, #30 TAB Magnesium Oxide (Magnesium-Oxide) 400 Mg Tab 400 MG PO BID for 30 Days, #60 TAB Pot Phosphate Monobasic W/ Sod (Phospha 250 Neutral) 1 Tab Tab 2 TAB PO QID for 10 Days, #80 TAB Potassium Chloride (Klor-Con M20) 20 Meq Tabcr 20 MEQ PO DAILY for 30 Days, #30 TAB Thiamine HCl (Vitamin B-1) 100 Mg Tab 100 MG PO QAM for 30 Days, #30 TAB Continued Medications: Amlodipine (Norvasc) 10 Mg Tab 10 MG PO DAILY, TAB Ascorbic Acid (Vitamin C) 100 Mg Tab 1 TAB PO DAILY Cholecalciferol (Vitamin D3) 1,000 Unit Tab 3 TAB PO DAILY, TAB Cyanocobalamin (Vitamin B-12) 1,000 Mcg Tab 1000 MCG PO DAILY, TAB Fish Oil (Baker-3) 1 Ea Cap 1 CAP PO DAILY, CAP Milk Thistle (Silybum Marianum (Milk Thistle) 1,000 Mg Cap 1 CAP PO DAILY Multivitamin (Multivitamin) Tab 1 TAB PO DAILY, TAB Triamcinolone Acet (Aristocort 0.1%) 90 Appln/30 Gm Cr 1 APPLN TOP DAILY for rash on legs Discontinued Medications: Omeprazole (Prilosec) 20 Mg Capcr 20 MG PO DAILY PRN for Dyspepsia, CAP Referrals At Discharge Follow up Referrals: Oncology/Hematology Referral - Please Call For Appointment with Sheila Friend M.D. Physician Referral - 10/11/17 with Nain Hoff D.O. Admission Information HPI (per Admitting provider): This is a 72yo M with a PMH of HTN, HLD who presents with generalized malaise and unintentional weight loss x 2 months. Patient reports that he has been "feeling poorly" since the beginning of July, with initial reports of low grade fever and intermittent abdominal pain thought to be due to hiatal hernia. Then started to experience increased fatigue, decreased appetite, increased urination and constipation. Endorses a 20 pound weight loss over the past few months. Was in [place] over the winter and went to an urgent care for evaluation of these symptoms and it was thought that symptoms were a side effect of crestor, which he was instructed to discontinue. Followed up with PCP at [facility] earlier this week, where he had lab work performed that revealed hypercalcemia of 15. Was told to go to ED for further evaluation. Currently endorses fatigue, decreased appetite and back pain (chronic). Denies fever, chills, confusion, lightheadedness, headache, visual changes, CP, SOB, nausea, vomiting or LE swelling. Physical Exam (per Admitting): General Appearance: WD/WN, no apparent distress Head: normocephalic, atraumatic Eyes: normal inspection, PERRL, sclerae normal ENT: normal ENT inspection, hearing grossly normal, pharynx normal Neck: supple, thyroid normal, no JVD, trachea midline Respiratory/Chest: chest non-tender, lungs clear, normal breath sounds, no respiratory distress, + crackles (faint bibasilar crackles ) Cardiovascular: regular rate, rhythm, no murmur, normal peripheral pulses Abdomen/GI: normal bowel sounds, non tender, soft, + hepatomegaly Back: normal inspection, no muscle spasm Extremities/Musculoskelatal: normal inspection, no calf tenderness, no pedal edema Neurologic/Psych: no motor/sensory deficits, alert, normal mood/affect, oriented x 3 Skin: normal color, warm/dry, no rash Hospital Course Exam: General-awake and alert, comfortable Eyes-mild icteric sclera. ENT-moist oral mucosa Neck-no JVD no carotid bruit, no thyromegaly noted Lungs-clear to auscultation no wheezes or rales Heart-regular S1-S2 Abdomen-soft, positive ascites, nontender, bowel sounds active Extremities-no lower extremity edema no rash or deformity noted Neuro-awake and alert 3, no focal neurological deficit noted 1.Metastatic malignancy/multiple liver masses CT abdomen pelvis Intrahepatic biliary ductal dilatation, limited to the left hepatic lobe raises concern for mild obstructive mass , multiple mass/suspicious nodule noted in the right hepatic lobe Tumor markers: AFP 3.7 within normal limits CEA Ag 3.5elevated CA 199 antigen: 403 significantly elevated (<34) Ultrasound-guided FNA of liver mass Initial pathology showed, atypical cells suspicious of malignancy Final final core pathology report: Adeno CA possible source GI tract Appreciate input from GI Status post EGD today Showed large flat indurated ulcer at the GE junction. There was mild mucosal nodularity at the borders of the ulcer The ulcer was brushed Prelim results of brush shows benign cells Biopsy from the edges of ulcer obtaining report pending -Patient's son and updated regarding the EGD report - Patient refused to have any further testing done does not want a colonoscopy 2. Confusion/metabolic encephalopathy -Resolved, mental status improved approximate baseline -Multifactorial-possibly due to hypercalcemia, electrolyte derangement, elevated ammonia, with multiple liver metastases -Also concerned for possible alcohol withdrawal, -CT head/MRI of brain-shows no evidence of brain metastases -Avoid benzodiazepine/avoid sedative and hypnotics 3. Hypercalcemia Due to malignancy Calcium level was elevated 15 on admission Improved after IV fluids, Given Zometa Calcium 7.6 4. Low mag low potassium and low phos: Due to poor p.o. intake/multiple bowel movement /GI loss with lactulose Replaced ordered for out pt lab to follow 5. Hypertension BP stable 6. Significant weight loss/poor appetite: Per patient lost more than 20 pounds in last 3 months Final pathology shows adeno CA possible source GI tract EGD finding as above, patient refused colonoscopy Order for dietitian consult for nutrition supplement CODE STATUS: Full code DVT PROPHYLAXIS Moderate to high risk, metastatic malignancy Ordered for subcu Lovenox DISPOSITION pt has improved markedly -cognitively and functionally able to walk in room /get to chair with walker without any assistance no loss of balance noted stable to be discharged home with family support Contact: Tonia Garcia son Curtis Garcia ( # [phone] ) Total time spent on discharge = 35 mins This includes examination of the patient, discharge planning, medication reconciliation, and communication with other providers. Discharge Instructions Discharge Instructions Date of Service Oct 06, 2017. Admission Reason for Admission: Hypercalcemia, Unintentional Weight Loss Discharge Discharge Diagnosis / Problem: LIVER MASS /METASTATIC MALIGNANCY Discharge Goals Goal(s): Increase independence, Improve disease control, Diagnostic testing, Therapeutic intervention Activity Recommendations Activity Limitations: resume your previous activity . Instructions / Follow-Up Instructions / Follow-Up HOSPITAL FOLLOW UP : 10/11/2017 1:20 PM Nain Hoff DO [facility] LAB WORK : BASIC METABOLIC PANEL , LIVER FUNCTION TEST, MG /PHOS LEVEL ON 10/11/17 HEMATOLOGY /ONCOLOGY FOLLOW UP WITH DR SHEILA FRIEND IN 2-3 WEEK, OFFICE WILL CALL WITH APPOINTMENT Current Hospital Diet Patient's current hospital diet: Regular Diet Discharge Diet Recommended Diet: Regular Diet Procedures Procedures Performed: BX AND BRUSHING on 10/05/2017 Pending Studies Studies pending at discharge: yes List of pending studies: Pathology report of the lower esophagus and stomach Please follow-up with Dr. Friend for the result. Medical Emergencies . Who to Call and When: Medical Emergencies: If at any time you feel your situation is an emergency, please call 911 immediately. . Non-Emergent Contact Non-Emergency issues call your: Primary Care Provider . . "Provider Documentation" section prepared by Lyndsay Castelan. .
--- NOTE | 2017-10-06 16:08 | Progress Note ---
Progress Note Date of Service Oct 06, 2017. Progress Note Patient was discharged earlier today On discharge med rifaximin 550 mg twice daily Started when patient was encephalopathic/had elevated ammonia level Patient does not have prescription coverage, [id number] expense of rifaximin 1 month supply is more than $2000 Spoke with GI team CT abdomen pelvis showed no evidence of sepsis Patient does not have any evidence of hepatic encephalopathy We will not need to be continued with outpatient rifaximin Patient's pharmacy [facility] contacted Rifaximin canceled Spoke with patient's Tonia Garcia updated patient patient does not need rifaximin
[2017-10-06] MEDS ORDERED: POTASSIUM CHLORIDE 20 MEQ TABCR PO SCH (21:00)
== END 2017-10-06 13:58 | disposition home or self-care (01) | DRG 435 ==
LOC: C.EDB 11:13 → C.2T 13:43 → EDBEDREQSVC 14:33 → ENRESERV 14:37 → C.MS2W 10-03 16:00
PROVIDERS: ADMIT Hospitalist; ATTEND Hospitalist
PROC: 0DJ08ZZ Inspection of Upper Intestinal Tract, Via Natural or Artificial Opening Endoscopic (ICD-10-PCS; principal; 2017-10-05 13:19)
DX: C22.1 Intrahepatic bile duct carcinoma (principal); G93.41 Metabolic encephalopathy; C79.51 Secondary malignant neoplasm of bone; I48.92 Unspecified atrial flutter; I10 Essential (primary) hypertension; E78.5 Hyperlipidemia, unspecified; E83.52 Hypercalcemia; R63.4 Abnormal weight loss; F10.10 Alcohol abuse, uncomplicated; K21.9 Gastro-esophageal reflux disease without esophagitis; Z87.891 Personal history of nicotine dependence; Z91.013 Allergy to seafood

== ENCOUNTER → 2017-10-16 | Outpatient (CLI) | payer OTHER ==
[~2017-10-16] MED LIST changes: -ACET-1138 PO; +ASCO100T4 PO; -ASPEC81 PO; -ATOR-24 PO; +CHOL1000 PO; -CLB200 PO; +CYAN10005 PO; +FLV1 PO; -HYDR25TA4 PO; -LISI-725 PO; +MCRK20 PO; +MGNO400 PO; +MILK1CAP9 PO; +MULT-506 PO; +NUTR-977 PO; +OMEG10007 PO; +OMEP20TA PO; -OXYSR10 PO; +POTTAB2 PO; -PRLSR20 PO; -RXC5 PO; +THM100 PO; +TRMCR130WC TOP
--- NOTE | 2017-10-16 11:15 | DIAGNOSTIC IMAGING REPORT ---
PET/CT SKULL-THIGH HISTORY: Metastatic disease LIVER MASS TECHNIQUE: PET/CT was performed from the base of the skull through the pelvis following the intravenous administration of 14 point mCi of F18-FDG. Non-contrast CT imaging was performed over the same range without breath-hold for attenuation correction of PET images and anatomic correlation, but not for primary interpretation as it is not of standard diagnostic quality. CT DOSE: 545.41 mGycm COMPARISON: CT abdomen and pelvis 09/27/2017, CT chest 09/27/2017, MRCP 10/02/2017. FINDINGS: HEAD AND NECK: There is no FDG-avid disease or significant lymphadenopathy in the imaged portions of the head and the neck. CHEST: There is no FDG-avid disease in the chest. There is no axillary, mediastinal, or hilar lymphadenopathy. There is no pleural or pericardial effusion. There is no air-space disease or suspicious lung nodule. ABDOMEN/PELVIS: Extensive foci of increased metabolic activity throughout the right as well as left hepatic lobe. Largest is at the superior right hepatic lobe region measuring 10 cm at maximum. Multiple additional foci identified throughout both hepatic lobes. Maximum SUVs are approximately 10. Unremarkable activity is identified within the urinary tracts and calcitonin intestinal tract. There is trace amount of ascites within the right paracolic gutter. Increased activity within the sigmoid colon consistent with chronic diverticular-type change. Small amount of pelvic ascites. Activity within the bladder is unremarkable. MUSCULOSKELETAL: Mild degenerative activity throughout the axial and appendicular skeleton. IMPRESSION: 1. Widespread hepatic metastatic change involving the bulk of the right as well as left hepatic lobe 2. The remainder of the PET scan is otherwise negative. The above report was generated using voice recognition software. It may contain grammatical, syntax or spelling errors. Electronically signed by: Yao Mariee M.D. 10/16/2017 11:14 AM Dictated Date/Time: 10/16/2017 11:02 AM
== END | disposition home or self-care (01) ==
LOC: C.PET 07:46
PROVIDERS: ATTEND Internal Medicine Hematology
DX: C78.7 Secondary malignant neoplasm of liver and intrahepatic bile duct (principal); C80.1 Malignant (primary) neoplasm, unspecified

== ENCOUNTER 2017-10-30 09:07 | Day surgery (SDC) | payer OTHER ==
[2017-10-26 09:07] VITALS: BMI 13.0
[~2017-10-30] VITALS: Ht 167.6 cm; Wt 85.0 kg
[~2017-10-30 09:07] MED LIST changes: +ATROPINE SULFATE 0.1 MG/ML 5ML SYR IV PRN; +CEFAZOLIN 2000MG IV PUSH 15 ML IV SCH; +EpHEDrine SULFATE INJ 50 MG/ML AMP IV PRN; +LACTATED RINGER'S 1000ML 1,000 ML IV SCH; +MAGN400T6 PO; -MGNO400 PO; -NUTR-977 PO; -OMEP20TA PO; +POTA20TA16 PO; -POTTAB2 PO
[2017-10-30] MEDS ORDERED: MIDAZOLAM HCL 1 MG/ML 2ML VIAL ONE (09:22)
[2017-10-30] MEDS ORDERED: FENTANYL CITRATE INJ 50 MCG/1 ML 2 ML VIAL ONE (09:23)
[2017-10-30 09:35] VITALS: BP 140/71; PULSE 67; TEMP 36.9; O2SAT 95; Ht 167.6 cm; Wt 85.0 kg
[2017-10-30] MEDS ORDERED: IBUP-1050 PO (09:52)
[2017-10-30] MEDS ORDERED: LACT10SO17 (09:52)
[2017-10-30] MEDS ORDERED: ACET-1256 PO (09:52)
--- NOTE | 2017-10-30 10:58 | History & Physical Bridge Note ---
H&P Re-Evaluation Bridge Note: I have examined the patient, reviewed the History & Physical and in the interval since the performance of the History & Physical I have noted the following changes of clinical significance: No changes noted
[2017-10-30] MEDS ORDERED: LIDOCAINE HCL 1% 20 ML VIAL ONE (11:00)
[2017-10-30] MEDS ORDERED: LIDOCAINE HCL 2% 2 ML VIAL (20MG/ML) ONE (11:29)
[2017-10-30] MEDS ORDERED: PROPOFOL IV EMULSION 10 MG/ML 20 ML VIAL IV ONE (11:29)
[2017-10-30] MEDS ORDERED: ONDANSETRON INJ 2 MG/ML 2 ML VIAL ONE (11:29)
--- NOTE | 2017-10-30 11:56 | [facility] Post Operative Brief Note ---
Immediate Operative Summary Operative Date Oct 30, 2017. Pre-Operative Diagnosis Metastatic liver cancer Circulatory system disorder Post-Operative Diagnosis Metastatic liver cancer Circulatory system disorder Procedure(s) Performed Insertion of left A-Port Surgeon Dr. Yao Marino MD Apprentice Photographer Surgeon(s) Sandra Rosenberg PA-C Estimated Blood Loss 5ml Findings Consistent with Post-Op Diagnosis Specimens None per surgeon Anesthesia Type General Complication(s) none Disposition Disposition: Recovery Room / PACU
[2017-10-30] MEDS ORDERED: SODIUM CHLORIDE 0.9% 1000ML 1,000 ML IV SCH (11:59)
--- NOTE | 2017-10-30 11:59 | Discharge Instructions ---
Discharge Instructions Date of Service Oct 30, 2017. Admission Reason for Admission: Circulatory System Disorder Discharge Discharge Diagnosis / Problem: Same Discharge Goals Goal(s): Improve disease control Activity Recommendations Activity Limitations: per Instructions/Follow-up section Lifting Limitations: no more than 10 pounds (with left arm for 1 week) . Instructions / Follow-Up Instructions / Follow-Up MEDICATIONS: Resume previous medications unless instructed otherwise by your surgeon. * Ibuprofen 600 mg every 6 hours with food * Tylenol 650 mg every 4 hours, as needed for pain SPECIAL CARE INSTRUCTIONS: * Your A-port may be used immediately. * May shower in 24 hours. Let water run over area and pat dry. * Leave op-site dressing on for 3 days and then remove. * Call the surgeon's office with any questions or concerns - (ex. temperature higher than 101 degrees F, excessive bleeding or pain). FOLLOW UP VISIT: If not already scheduled, please call the office to schedule a two week follow- up appointment. Office number Current Hospital Diet Patient's current hospital diet: Discharge Diet Recommended Diet: Regular Diet Procedures Procedures Performed: Insertion of left A-Port Pending Studies Studies pending at discharge: no Medical Emergencies . Who to Call and When: Medical Emergencies: If at any time you feel your situation is an emergency, please call 911 immediately. . Non-Emergent Contact Non-Emergency issues call your: Primary Care Provider Call Non-Emergent contact if: your pain is worsening, wound has increased redness, wound has increased pain . "Provider Documentation" section prepared by Yao Marino. .
[2017-10-30] MEDS ORDERED: OXYCODONE/ACETAMINOPHEN 5-325 TAB PO PRN (12:00)
[2017-10-30] MEDS ORDERED: MoRPHine SULFATE 4 MG/ML 1 ML CARP\\VIAL IV PRN (12:00)
[2017-10-30] MEDS ORDERED: ONDANSETRON INJ 2 MG/ML 2 ML VIAL IV PRN (12:00)
--- NOTE | 2017-10-30 12:23 | DIAGNOSTIC IMAGING REPORT ---
CHEST ONE VIEW PORTABLE CLINICAL HISTORY: 72 years-old Male presenting with status post placement of Aport. TECHNIQUE: PA and lateral views of the chest were obtained. COMPARISON: 10/04/2017. FINDINGS: Interval placement of a left subclavian Mediport, which terminates at the superior cavoatrial junction. Atherosclerosis of the aortic arch. Cardiac silhouette mildly enlarged, unchanged. Mild prominence of pulmonary vasculature with mild bronchial wall thickening suggested. No focal opacity. No large effusion or pneumothorax. Degenerative changes of the thoracic spine. Upper abdomen normal. IMPRESSION: 1. Interval placement of a left subclavian Mediport. No pneumothorax. 2. Mild cardiomegaly with mild volume overload/congestive change. No alicia pulmonary edema. Electronically signed by: Kieran Buenrostro M.D. 10/30/2017 12:22 PM Dictated Date/Time: 10/30/2017 12:21 PM
[2017-10-30 12:40] VITALS: BP 127/67; PULSE 62; TEMP 36.6; O2SAT 96
--- NOTE | 2017-10-30 12:45 | Anesthesiology Progress Note ---
Anesthesia Post Op Note Date & Time Oct 30, 2017 at 12:44 Vital Signs Pain Intensity: 0 Vital Signs Past 12 Hours Date Time Temp Pulse Resp B/P (MAP) Pulse Ox O2 Delivery O2 Flow Rate FiO2 10/30/17 12:25 36.6 63 17 123/67 95 Room Air 10/30/17 12:15 63 13 114/72 97 Oxymask 10 10/30/17 12:08 36.7 63 22 118/70 100 Oxymask 10 10/30/17 09:35 36.9 67 18 140/71 (94) 95 Room Air Notes Mental Status: alert / awake / arousable, participated in evaluation Pt Amnestic to Procedure: Yes Nausea / Vomiting: adequately controlled Pain: adequately controlled Airway Patency, RR, SpO2: stable & adequate BP & HR: stable & adequate Hydration State: stable & adequate Anesthetic Complications: no major complications apparent
[2017-10-30 13:10] VITALS: BP 155/80; PULSE 68; TEMP 36.5; O2SAT 93
--- NOTE | 2017-10-30 13:55 | OPERATIVE REPORT ---
DATE OF OPERATION: 10/30/2017 PREOPERATIVE DIAGNOSIS: Need for long-term central venous access. POSTOPERATIVE DIAGNOSIS: Same. PROCEDURE: Placement of A-port tunneled central venous access catheter with port. SURGEON: Yao Marino MD HEAD WORKER: Sandra Rosenberg PA-C FINDINGS: The catheter tip was placed near the junction of the superior vena cava and right atrium. The port was accessed and there was good blood return and it was easily flushed. There was no leaking. TECHNIQUE: The patient was given intravenous sedation and the area was prepped and draped in the usual sterile fashion. The skin and subcutaneous tissue in the left infraclavicular area were anesthetized with 0.5% Marcaine plain. The left subclavian vein was entered on the first attempt and the wire passed with ease. The tip of the wire was confirmed in the right atrium by fluoroscopy. A small incision was made at the exit site of the wire and a pocket was created in the subcutaneous tissue to assure soft turn in the catheter. The site for the port was chosen. The skin and subcutaneous tissues superior to that area were anesthetized with the 0.5% Marcaine. Skin incision was made, carried down through the subcutaneous tissue to the prepectoral fascia and a prepectoral pocket was created inferior to the incision. Hemostasis was obtained using electrocautery. The introducer sheath device was then passed over the wire under fluoroscopic guidance. The introducer and wire were removed and the catheter was passed through the sheath and the tip of the catheter was seen to enter the right atrium. This was done under fluoroscopic guidance. The sheath was peeled. The catheter was then passed from the infraclavicular incision to the port incision using the tunneling device. Fluoroscopy was used to size the catheter. It was cut to size and attached to the port with ease. The port was secured to the prepectoral fascia with 2-0 Prolene sutures. The port was accessed and there was good blood return. It was easily flushed. It was then flushed with heparin. There was no leaking. The port incision was closed with a running 2-0 Vicryl in the deep subcutaneous tissue, running 3-0 Vicryl in the superficial subcutaneous tissue and a running 4-0 Monocryl in a subcuticular fashion for the skin. The infraclavicular incision was closed with interrupted 4-0 Monocryl in a subcuticular fashion. The estimated blood loss was 5 mL. Sponge, needle and instrument counts were correct prior to closure. The patient tolerated the surgical procedure without complication and was transferred to recovery. I attest to the content of the Intraoperative Record and any orders documented therein. Any exception s are noted below.
== END 2017-10-30 13:18 | disposition home or self-care (01) ==
LOC: C.ACU 09:07
PROVIDERS: ATTEND Surgery
DX: C78.7 Secondary malignant neoplasm of liver and intrahepatic bile duct (principal); C80.1 Malignant (primary) neoplasm, unspecified; I99.9 Unspecified disorder of circulatory system; I10 Essential (primary) hypertension; E78.5 Hyperlipidemia, unspecified; K21.9 Gastro-esophageal reflux disease without esophagitis; E66.9 Obesity, unspecified; K44.9 Diaphragmatic hernia without obstruction or gangrene; Z87.891 Personal history of nicotine dependence; Z85.828 Personal history of other malignant neoplasm of skin; Z96.651 Presence of right artificial knee joint; Z91.030 Bee allergy status; Z91.018 Allergy to other foods